=== PATIENT | female | born 1975 | race Caucasian/White ===

== ENCOUNTER 2023-09-14 17:08 | Emergency (ER) | payer MEDICARE, MEDICAID, SELFPAY ==
[2023-09-14 17:13] VITALS: BP 138/117; PULSE 68; RESP 30; TEMP 36.6; O2SAT 100; BMI 22.8
[2023-09-14] MEDS: Aspirin 81 MG TAB.CHEW 324 MG PO (17:55)
--- NOTE | 2023-09-14 18:01 | RAD_ITS ---
INDICATION: shortness of breath EXAMINATION/TECHNIQUE: X-RAY - XR Chest 2 Views COMPARISON: FINDINGS: LINES/DEVICES: Sternotomy wires are present.. LUNGS: Bibasilar infiltrates/atelectasis with mild effusions, left more than right. No pneumothorax. MEDIASTINUM AND CARDIOVASCULAR STRUCTURES: Cardiac silhouette not enlarged. Central airways and mediastinal contour are unremarkable. BONES AND SOFT TISSUES: Unremarkable. RAD/Chest PA and Lateral IMPRESSION: Bibasilar infiltrates/atelectasis with mild effusions, left more than right. Electronically Signed: Alonso Owens DO at 19:13 EST Reading Location ID and State: [facility] / [place] Tel [phone], Service support ,
--- NOTE | 2023-09-14 18:04 | EX.ED.DYSGE1 ---
HPI <DELPHINE Cortez - Last Filed: 09/14/23 20:22> History of Present Illness Chief Complaint: Shortness of Breath Narrative Narrative: Patient is a chronic ill-appearing 47-year-old female who lives at [facility] for 1 week who presents to the emergency department for shortness of breath. Patient has a history of type 1 diabetes, chronic kidney disease and receives hemodialysis Thursday. Patient was at dialysis today when she had to go to the bathroom and did not restart, patient stopped 35 minutes left in the session. Patient is been more short of breath over the last 48 hours and is here for evaluation. She denies any fever chills nausea or vomiting. PFS <DELPHINE Cortez - Last Filed: 09/14/23 20:22> [facility] Medical History (Updated 09/14/23 @ 20:22 by DELPHINE Cortez) Anemia in chronic kidney disease (CKD) Anxiety Congestive heart failure Constipation Gastroparesis Hyperlipidemia Hypothyroidism Insomnia Pleural effusion Stage 5 chronic kidney disease Tobacco use Type 1 diabetes mellitus Home Medications acetaminophen 325 mg capsule 325 mg PO Q4H PRN fever or pain 09/14/23 [History Last Taken 09/10/23] acetaminophen 650 mg rectal suppository 650 mg HI Q4H PRN fever or pain 09/14/23 [History Last Taken Unknown] albuterol sulfate 2.5 mg/3 mL (0.083 %) solution for nebulization 2.5 mg inhalation Q4H PRN shortness of breath or wheezing 09/14/23 [History Last Taken 09/14/23] aluminum hydrox-magnesium carb 254 mg-237.5 mg/5 mL oral suspension 30 ml PO Q4H PRN GI DISTRESS 09/14/23 [History Last Taken 09/10/23] aspirin 81 mg tablet,delayed release 81 mg PO DAILY 09/14/23 [History Last Taken 09/14/23] atorvastatin 20 mg tablet 20 mg PO QHS 09/14/23 [History Last Taken 09/13/23] bisacodyl 10 mg rectal suppository 10 mg HI DAILY PRN constipation 09/14/23 [History Last Taken Unknown] buspirone 5 mg tablet 5 mg PO TID 09/14/23 [History Last Taken 09/14/23] calcium carbonate 500 mg calcium (1,250 mg) chewable tablet (Calcium 500) 1,000 mg PO Q12H PRN abdominal discomfort 09/14/23 [History Last Taken 09/11/23] carvedilol 25 mg tablet 25 mg PO BID 09/14/23 [History Last Taken 09/14/23] clonidine HCl 0.3 mg tablet 0.3 mg PO TID 09/14/23 [History Last Taken 09/14/23] dextrose 40 % oral gel (Gluco Burst) 1 ea PO PRN 09/14/23 [History Last Taken Unknown] diclofenac sodium 1 % topical gel (Aleve (diclofenac)) 1 ea topical Q6H PRN KNEE PAIN 09/14/23 [History Last Taken 09/11/23] doxazosin 4 mg tablet (Cardura) 4 mg PO QHS 09/14/23 [History Last Taken 09/09/23] ergocalciferol (vitamin D2) 1,250 mcg (50,000 unit) capsule (Vitamin D2) 1,250 mcg PO QWEEK 09/14/23 [History Last Taken 09/14/23] famotidine 10 mg tablet (Acid Controller) 10 mg PO .COMPLEX 09/14/23 [History Last Taken 09/13/23] fluoxetine 10 mg capsule 10 mg PO DAILY 09/14/23 [History Last Taken 09/14/23] glucagon HCl 1 mg solution for injection (Glucagon (HCl) Emergency Kit) 1 mg IM Q20M PRN hypoglycemia 09/14/23 [History Last Taken Unknown] guaifenesin 100 mg/5 mL oral liquid (Adult Tussin Chest Congestion) 200 mg PO Q4H PRN congestion 09/14/23 [History Last Taken Unknown] hydralazine 100 mg tablet 100 mg PO TID 09/14/23 [History Last Taken 09/14/23] hydroxyzine HCl 50 mg tablet 50 mg PO Q6H 09/14/23 [History Last Taken 09/14/23] insulin glargine 100 unit/mL (3 mL) subcutaneous pen (Lantus Solostar U-100 Insulin) 8 unit subcut DAILY 09/14/23 [History Last Taken 09/14/23] insulin lispro 100 unit/mL subcutaneous pen (Humalog KwikPen (U-100) Insulin) 7 unit subcut TID 09/14/23 [History Last Taken 09/14/23] insulin lispro 100 unit/mL subcutaneous solution (Humalog U-100 Insulin) 10 unit subcut PRN 09/14/23 [History Last Taken Unknown] ipratropium 0.5 mg-albuterol 3 mg (2.5 mg base)/3 mL nebulization soln 3 ml continuous nebulization Q8H 09/14/23 [History Last Taken 09/14/23] levothyroxine 150 mcg tablet (Euthyrox) 150 mcg PO DAILY 09/14/23 [History Last Taken 09/14/23] lidocaine 3.75 % topical cream 1 applic topical QHS 09/14/23 [History Last Taken 09/13/23] losartan 100 mg tablet (Cozaar) 100 mg PO DAILY 09/14/23 [History Last Taken 09/14/23] magnesium hydroxide 400 mg/5 mL oral suspension (Milk of Magnesia) 30 ml PO DAILY PRN constipation 09/14/23 [History Last Taken 09/10/23] melatonin 3 mg capsule 3 mg PO QHS 09/14/23 [History Last Taken 09/13/23] metoclopramide HCl 5 mg tablet (Reglan) 5 mg PO DAILY 09/14/23 [History Last Taken 09/14/23] nifedipine 60 mg tablet,extended release 24 hr 60 mg PO DAILY 09/14/23 [History Last Taken 09/14/23] polyethylene glycol 3350 17 gram/dose oral powder (ClearLax) 17 g PO DAILY 09/14/23 [History Last Taken 09/14/23] pregabalin 50 mg capsule (Lyrica) 50 mg PO BID 09/14/23 [History Last Taken 09/14/23] sennosides 8.6 mg-docusate sodium 50 mg tablet (2-in-1 Laxative) 1 tab-cap PO QHS 09/14/23 [History Last Taken 09/14/23] sodium phosphates 19 gram-7 gram/118 mL enema (Enema) 118 ml HI DAILY PRN constipation 09/14/23 [History Last Taken Unknown] torsemide 10 mg tablet 5 mg PO DAILY 09/14/23 [History Last Taken Unknown] tramadol 50 mg tablet 50 mg PO BID 09/14/23 [History Last Taken 09/14/23] vitamin B complex-vitamin C-folic acid 0.8 mg tablet (Dialyvite 800) 1 tab PO DAILY 09/14/23 [History Last Taken 09/14/23] Allergy/AdvReac Type Severity Reaction Status Date / Time Sulfa (Sulfonamide Allergy PT UNSURE Verified 09/14/23 17:37 Antibiotics) OF REACTION Social History Smoking Status: Former smoker ROS <DELPHINE Cortez - Last Filed: 09/14/23 20:22> ROS ED ROS Narrative Constitutional: Negative for fever, chills, weight loss, weakness Eyes: Negative for vision loss, vision change, double vision ENT: Negative for any sore throat, ear pain, congestion Cardiovascular: Negative for any palpitations. Positive chest pain, chest tightness Respiratory: Negative for any cough, sputum production, hemoptysis, dyspnea on exertion, orthopnea. Positive for dyspnea Gastrointestinal: Negative for any abdominal pain, nausea, vomiting, diarrhea, constipation, blood in stool, blood in vomit : Negative for any urinary frequency, dysuria, retention, blood in urine Muscle skeletal: Negative for any myalgias, arthralgias, neck pain, back pain Neurological: Negative for any headache, syncope, paresthesias, dizziness Skin: Negative for any rashes, lumps, itching, abrasions, lacerations Psychiatric: Negative for any depression, anxiety, stress, suicidal ideation, homicidal ideation Hematologic: Negative for any easy bruising, excessive bruising, easy bleeding Allergies: Negative for any eczema, hives, rash EXAM <DELPHINE Cortez - Last Filed: 09/14/23 20:22> Physical Exam Narrative Exam Narrative: Vital signs reviewed Patient is ill-appearing. Patient is 97% on her 1.5 L which is chronic.. HEET: Head normocephalic atraumatic, TMs clear bilaterally. Posterior pharynx is clear, dry mucous membranes. Nares clear bilaterally. Neck: Supple with no lymphadenopathy or tenderness. No signs of meningismus. Cardiac: Regular rate and rhythm no murmurs gallops or rubs, equal peripheral pulses bilaterally. Respiratory: Lungs clear to auscultation bilaterally. Patient slight tachypneic no chest tenderness. Abdomen: Soft, nontender, nondistended. No abdominal bruit or pulsatile masses. No hepatosplenomegaly Extremities: +3 pitting edema bilateral no evidence of redness. No signs of gross trauma or deformity. Active full range of motion of all extremities. Neuro: Cranial nerves II through XII intact, no focal neurological deficits. Skin: Clean dry and intact with no rash, purpura, petechiae, vesicles or pustules. Backs/flank: No CVA tenderness, no midline spinal tenderness, no deformity. Psych: Normal mood and affect. No SI, HI or acute psychosis. Const Vital Signs: 09/14/23 17:13 09/14/23 17:47 09/14/23 17:48 Temperature 97.8 F Temperature Source Oral Pulse Rate 68 Respiratory Rate 30 H Respiratory Effort Short of Breath Respiratory Depth Normal Respiratory Pattern Normal Blood Pressure 138/117 H Blood Pressure Mean 124 Pulse Ox 100 Oxygen Delivery Method Nasal Cannula Room Air Room Air Oxygen Flow Rate (L/min) 4 09/14/23 18:08 09/14/23 19:00 09/14/23 20:00 Temperature Temperature Source Pulse Rate 66 69 67 Respiratory Rate 12 17 22 H Respiratory Effort Respiratory Depth Respiratory Pattern Blood Pressure 130/64 H 124/57 H 160/40 H Blood Pressure Mean 86 79 80 Pulse Ox 99 99 97 Oxygen Delivery Method Room Air Room Air Room Air Oxygen Flow Rate (L/min) 09/14/23 20:48 09/14/23 22:44 Temperature 98.1 F Temperature Source Temporal Pulse Rate 69 94 Respiratory Rate 18 12 Respiratory Effort Respiratory Depth Respiratory Pattern Blood Pressure 159/61 H 147/92 H Blood Pressure Mean 93 110 Pulse Ox 96 97 Oxygen Delivery Method Room Air Oxygen Flow Rate (L/min) Positive cachectic General Appearance ED: cachectic Nutritional Appearance: cachectic <Dr. Abdelrahman Clarke, DO - Last Filed: 09/14/23 23:00> Physical Exam Const Vital Signs: 09/14/23 17:13 09/14/23 17:47 09/14/23 17:48 Temperature 97.8 F Temperature Source Oral Pulse Rate 68 Respiratory Rate 30 H Respiratory Effort Short of Breath Respiratory Depth Normal Respiratory Pattern Normal Blood Pressure 138/117 H Blood Pressure Mean 124 Pulse Ox 100 Oxygen Delivery Method Nasal Cannula Room Air Room Air Oxygen Flow Rate (L/min) 4 09/14/23 18:08 09/14/23 19:00 09/14/23 20:00 Temperature Temperature Source Pulse Rate 66 69 67 Respiratory Rate 12 17 22 H Respiratory Effort Respiratory Depth Respiratory Pattern Blood Pressure 130/64 H 124/57 H 160/40 H Blood Pressure Mean 86 79 80 Pulse Ox 99 99 97 Oxygen Delivery Method Room Air Room Air Room Air Oxygen Flow Rate (L/min) 09/14/23 20:48 09/14/23 22:44 Temperature 98.1 F Temperature Source Temporal Pulse Rate 69 94 Respiratory Rate 18 12 Respiratory Effort Respiratory Depth Respiratory Pattern Blood Pressure 159/61 H 147/92 H Blood Pressure Mean 93 110 Pulse Ox 96 97 Oxygen Delivery Method Room Air Oxygen Flow Rate (L/min) MDM <DELPHINE Cortez - Last Filed: 09/14/23 20:22> [facility] Lab Data Labs: Laboratory Results - last 24 hr 09/14/23 09/14/23 09/14/23 17:25 17:59 18:31 WBC 5.5 RBC 2.95 L Hgb 8.8 L Hct 26.9 L MCV 91.2 MCH 29.8 MCHC 32.7 RDW Std Deviation 53.8 H RDW Coeff of Keysha 16.3 H Plt Count 257 MPV 12.0 Immature Gran % (Auto) 0.400 Neut % (Auto) 71.1 H Lymph % (Auto) 13.7 L [place] % (Auto) 8.6 Eos % (Auto) 5.1 H Baso % (Auto) 1.1 H Absolute Neuts (auto) 3.9 Absolute Lymphs (auto) 0.75 L Nucleated RBC % 0 PT Cancelled 13.8 INR Cancelled 1.1 Sodium 132 L Potassium 5.7 H Chloride 92 L Carbon Dioxide 30.0 Anion Gap 10 BUN 59 H Creatinine 3.84 H Estim Creat Clear Calc 15.95 Est GFR (MDRD) Af Amer 16 L Est GFR (MDRD) Non-Af 13 L BUN/Creatinine Ratio 15.4 Glucose 209 H Calcium 9.3 Phosphorus 4.3 Troponin I High Sens 16 Acetone Level NEGATIVE 09/14/23 19:36 WBC RBC Hgb Hct MCV MCH MCHC RDW Std Deviation RDW Coeff of Keysha Plt Count MPV Immature Gran % (Auto) Neut % (Auto) Lymph % (Auto) [place] % (Auto) Eos % (Auto) Baso % (Auto) Absolute Neuts (auto) Absolute Lymphs (auto) Nucleated RBC % PT INR Sodium Potassium Chloride Carbon Dioxide Anion Gap BUN Creatinine Estim Creat Clear Calc Est GFR (MDRD) Af Amer Est GFR (MDRD) Non-Af BUN/Creatinine Ratio Glucose Calcium Phosphorus Troponin I High Sens 14 Acetone Level ABG Data ABG results: ABG 09/14/23 18:06 Specimen Type JACKSON Sample Site Not entered VBG pH 7.45 H VBG pO2 60 H VBG HCO3 31 H VBG Total CO2 32 VBG O2 Sat (Calc) 91 H VBG Base Excess 7 H POC Mix VBG pCO2 Pt Tmp 44.5 O2 Delivery Device Not entered Radiography Diagnostic Testing: Clinical Impression(s) from Imaging Studies Chest X-Ray 09/14/23 18:01 IMPRESSION: Bibasilar infiltrates/atelectasis with mild effusions, left more than right. Electronically Signed: Alonso Owens DO at 19:13 EST , Chest CTA 09/14/23 18:49 IMPRESSION: No demonstrated pulmonary embolism or arterial dissection. Adenopathy of the mediastinum. Bilateral pleural effusions with basilar consolidations/atelectasis, right slightly more than left . Bilateral axillary adenopathy. Electronically Signed: Alonso Owens DO at 20:05 EST , EKG EKG shows normal sinus rhythm, rate of 65 bpm: Attestation: I personally reviewed and interpreted this EKG as follows: Comments: Normal sinus rhythm, rate 65 bpm, HI interval 148 ms, QRS duration 90 ms Treatment and Re-Evaluation :: Patient appears to be chronically ill, patient's vital signs are stable, patient is 97% on 1.5 L which is baseline. Present to the emergency department with chest pain, shortness of breath, headache that is been ongoing for the last 48 hours. Differential diagnose includes pulmonary edema, PE, DKA, community-acquired pneumonia. Patient received 2 view chest x-ray. All radiologic examinations were read, reviewed by the emergency department attending. From these reads, a plan of care will be put in place. Patient does take heparin, a PE is less likely. Patient received basic laboratory values concerning for any elevated white blood count, anemia, electrolyte abnormality. EKG was unremarkable. Patient's CBC shows a hemoglobin of 8.8, this is baseline for a hemodialysis patient. Patient's chemistries showed a potassium of 5.7, this is baseline, earlier today prior to dialysis was 6.3. Patient's creatinine 3.84, glucose was 209, patient's acetone is negative, no evidence of any acute DKA. Patient's initial troponin was 16, repeat was 14, this is negative. Patient chest x-ray interpreted by the ER physician does show some atelectasis with mild effusions left more than the right. Secondary the patient continued complaint of pain with breathing, dyspnea, I did order a CTA of the chest looking for any pulmonary embolus. CTA shows no demonstrated pulmonary embolism or arterial dissection. Bilateral pleural effusions with bibasilar consolidations or atelectasis right slightly more than left. Second to the patient having no fever, chills, no infectious symptoms, no leukocytosis, I believe this is atelectasis. At this time, there is no evidence of ACS or RI. Patient will be discharged home back to the skilled nursing. It will be vital that she does get dialysis tomorrow. She has no hypoxia, she is on 1.5 L daily. All questions answered, stable for discharge. <Dr. Abdelrahman Clarke, DO - Last Filed: 09/14/23 23:00> [facility] History & Record Review Discussion w/independent historian: Patient Lab Data Attestation: I reviewed the patient's lab results. Labs: Laboratory Results - last 24 hr 09/14/23 09/14/23 09/14/23 17:25 17:59 18:31 WBC 5.5 RBC 2.95 L Hgb 8.8 L Hct 26.9 L MCV 91.2 MCH 29.8 MCHC 32.7 RDW Std Deviation 53.8 H RDW Coeff of Keysha 16.3 H Plt Count 257 MPV 12.0 Immature Gran % (Auto) 0.400 Neut % (Auto) 71.1 H Lymph % (Auto) 13.7 L [place] % (Auto) 8.6 Eos % (Auto) 5.1 H Baso % (Auto) 1.1 H Absolute Neuts (auto) 3.9 Absolute Lymphs (auto) 0.75 L Nucleated RBC % 0 PT Cancelled 13.8 INR Cancelled 1.1 Sodium 132 L Potassium 5.7 H Chloride 92 L Carbon Dioxide 30.0 Anion Gap 10 BUN 59 H Creatinine 3.84 H Estim Creat Clear Calc 15.95 Est GFR (MDRD) Af Amer 16 L Est GFR (MDRD) Non-Af 13 L BUN/Creatinine Ratio 15.4 Glucose 209 H Calcium 9.3 Phosphorus 4.3 Troponin I High Sens 16 Acetone Level NEGATIVE 09/14/23 19:36 WBC RBC Hgb Hct MCV MCH MCHC RDW Std Deviation RDW Coeff of Keysha Plt Count MPV Immature Gran % (Auto) Neut % (Auto) Lymph % (Auto) [place] % (Auto) Eos % (Auto) Baso % (Auto) Absolute Neuts (auto) Absolute Lymphs (auto) Nucleated RBC % PT INR Sodium Potassium Chloride Carbon Dioxide Anion Gap BUN Creatinine Estim Creat Clear Calc Est GFR (MDRD) Af Amer Est GFR (MDRD) Non-Af BUN/Creatinine Ratio Glucose Calcium Phosphorus Troponin I High Sens 14 Acetone Level ABG Data ABG results: ABG 09/14/23 18:06 Specimen Type JACKSON Sample Site Not entered VBG pH 7.45 H VBG pO2 60 H VBG HCO3 31 H VBG Total CO2 32 VBG O2 Sat (Calc) 91 H VBG Base Excess 7 H POC Mix VBG pCO2 Pt Tmp 44.5 O2 Delivery Device Not entered Radiography Diagnostic Testing: Clinical Impression(s) from Imaging Studies Chest X-Ray 09/14/23 18:01 IMPRESSION: Bibasilar infiltrates/atelectasis with mild effusions, left more than right. Electronically Signed: Alonso Owens DO at 19:13 EST , Chest CTA 09/14/23 18:49 IMPRESSION: No demonstrated pulmonary embolism or arterial dissection. Adenopathy of the mediastinum. Bilateral pleural effusions with basilar consolidations/atelectasis, right slightly more than left . Bilateral axillary adenopathy. Electronically Signed: Alonso Owens DO at 20:05 EST , Treatment and Re-Evaluation :: Patient appears to be chronically ill, patient's vital signs are stable, patient is 97% on 1.5 L which is baseline. Present to the emergency department with chest pain, shortness of breath, headache that is been ongoing for the last 48 hours. Differential diagnose includes pulmonary edema, PE, DKA, community-acquired pneumonia. Patient received 2 view chest x-ray. All radiologic examinations were read, reviewed by the emergency department attending. From these reads, a plan of care will be put in place. Patient does take heparin, a PE is less likely. Patient received basic laboratory values concerning for any elevated white blood count, anemia, electrolyte abnormality. EKG was unremarkable. Patient's CBC shows a hemoglobin of 8.8, this is baseline for a hemodialysis patient. Patient's chemistries showed a potassium of 5.7, this is baseline, earlier today prior to dialysis was 6.3. Patient's creatinine 3.84, glucose was 209, patient's acetone is negative, no evidence of any acute DKA. Patient's initial troponin was 16, repeat was 14, this is negative. Patient chest x-ray interpreted by the ER physician does show some atelectasis with mild effusions left more than the right. Secondary the patient continued complaint of pain with breathing, dyspnea, I did order a CTA of the chest looking for any pulmonary embolus. CTA shows no demonstrated pulmonary embolism or arterial dissection. Bilateral pleural effusions with bibasilar consolidations or atelectasis right slightly more than left. Second to the patient having no fever, chills, no infectious symptoms, no leukocytosis, I believe this is atelectasis. At this time, there is no evidence of ACS or RI. Patient will be discharged home back to the skilled nursing. It will be vital that she does get dialysis tomorrow. She has no hypoxia, she is on 1.5 L daily. All questions answered, stable for discharge. I have personally performed a face to face assessment of the patient and have reviewed the ERMA Note. I performed a substantive portion of the visit including all aspects of the following. My matthews findings include: History is 47-year-old female on dialysis was recently admitted to [facility] and has been at [facility] for 1 week. She tells me that she was getting dialysis today when she needed to have a bowel movement. She went to have a bowel movement and suddenly got short of breath. This resulted in the last 30 minutes or so of dialysis not being completed. She tells me that she feels somewhat anxious and that she does not feel like she can catch her breath. She is originally from [facility] and was getting most of her care in [place] and therefore has not been to this hospital. Review of her skilled nursing paperwork shows that she has a history of pleural effusion end-stage renal disease lower extremity fractures upper cholesterolemia hypertension depression diabetes. She tells me she is on heparin as a blood thinner but I do not see it listed on her MAR so I wonder if if she is telling me that because they give her that at dialysis. Patient denies any fever. She denies any change in leg swelling. She wears home oxygen Exam is mild nonpitting edema of the lower extremities. Patient is tachypneic but she has good air exchange she is satting normally on her home oxygen settings. She is not tachycardic she is not hypotensive or significantly hypertensive. Medical Decison Making an extensive workup was undertaken and I find bilateral pleural effusions with some compressive findings. I do not feel that these are large enough that should make her feel tachypneic. She would like something for her anxiety. We needed to do a CTA with her recent hospitalizations and I do not see a pulmonary embolism. She is due for dialysis tomorrow and she was told that she definitely needs to get dialyzed because of the CT today. At this point I do not see an obvious cause for her reported tachypnea. Believe she can be discharged back to skilled nursing. Return if worsening Discharge Plan Triage Chief Complaint: Shortness of Breath ED Midlevel Provider: Sukhdev Mckenzie ED Provider: Abdelrahman Clarke Dx/Rx/DC Orders Clinical Impression: Acute dyspnea, Pleural effusion Instructions: ED Dyspnea, ED Pleural Effusion Prescriptions: No Action acetaminophen 650 mg suppository 650 mg HI Q4H PRN (Reason: fever or pain) acetaminophen 325 mg capsule 325 mg PO Q4H PRN (Reason: fever or pain) albuterol sulfate 2.5 mg /3 mL (0.083 %) solution for nebulization 2.5 mg inhalation Q4H PRN (Reason: shortness of breath or wheezing) aluminum hydrox-magnesium carb 254-237.5 mg/5 mL suspension 30 ml PO Q4H PRN (Reason: GI DISTRESS) aspirin 81 mg tablet,delayed release (DR/EC) 81 mg PO DAILY Patient Comments: TAKE 1 TABLET BY MOUTH EVERY DAY atorvastatin 20 mg tablet 20 mg PO QHS bisacodyl 10 mg suppository 10 mg HI DAILY PRN (Reason: constipation) buspirone 5 mg tablet 5 mg PO TID calcium carbonate [Calcium 500] 500 mg calcium (1,250 mg) tablet,chewable 1,000 mg PO Q12H PRN (Reason: abdominal discomfort) carvedilol 25 mg tablet 25 mg PO BID Rx Instructions: must administer with a meal/food clonidine HCl 0.3 mg tablet 0.3 mg PO TID diclofenac sodium [Aleve (diclofenac)] 1 % gel 1 ea topical Q6H PRN (Reason: KNEE PAIN) ergocalciferol (vitamin D2) [Vitamin D2] 1,250 mcg (50,000 unit) capsule 1,250 mcg PO QWEEK Rx Instructions: THURSDAY famotidine [Acid Controller] 10 mg tablet 10 mg PO .COMPLEX Rx Instructions: 10 mg orally QOD; Enema 19-7 gram/118 mL enema 118 ml HI DAILY PRN (Reason: constipation) fluoxetine 10 mg capsule 10 mg PO DAILY glucagon HCl [Glucagon (HCl) Emergency Kit] 1 mg recon soln 1 mg IM Q20M PRN (Reason: hypoglycemia) Rx Instructions: until target blood sugar attained dextrose [Gluco Burst] 40 % gel 1 ea PO PRN Rx Instructions: until symptoms of low blood sugar are controlled guaifenesin [Adult Tussin Chest Congestion] 100 mg/5 mL liquid 200 mg PO Q4H PRN (Reason: congestion) hydralazine 100 mg tablet 100 mg PO TID hydroxyzine HCl 50 mg tablet 50 mg PO Q6H insulin lispro [Humalog U-100 Insulin] 100 unit/mL solution 10 unit subcut PRN Rx Instructions: FOR BLOOD SUGAR > 400 HS insulin lispro [Humalog KwikPen Insulin] 100 unit/mL insulin pen 7 unit subcut TID Rx Instructions: CM AND PER SLIDING SCALE 201-275=1U 276-350=2U 351-425=3U >425=4U ipratropium-albuterol 0.5 mg-3 mg(2.5 mg base)/3 mL solution for nebulization 3 ml continuous nebulization Q8H insulin glargine [Lantus Solostar U-100 Insulin] 100 unit/mL (3 mL) insulin pen 8 unit subcut DAILY levothyroxine [Euthyrox] 150 mcg tablet 150 mcg PO DAILY lidocaine 3.75 % cream 1 applic topical QHS losartan [Cozaar] 100 mg tablet 100 mg PO DAILY melatonin 3 mg capsule 3 mg PO QHS magnesium hydroxide [Milk of Magnesia] 400 mg/5 mL suspension 30 ml PO DAILY PRN (Reason: constipation) nifedipine 60 mg tablet extended release 24hr 60 mg PO DAILY polyethylene glycol 3350 [ClearLax] 17 gram/dose powder 17 g PO DAILY pregabalin [Lyrica] 50 mg capsule 50 mg PO BID metoclopramide HCl [Reglan] 5 mg tablet 5 mg PO DAILY Rx Instructions: WITH MEALS Dialyvite 800 0.8 mg tablet 1 tab PO DAILY sennosides-docusate sodium [2-in-1 Laxative] 8.6-50 mg tablet 1 tab-cap PO QHS torsemide 10 mg tablet 5 mg PO DAILY tramadol 50 mg tablet 50 mg PO BID doxazosin [Cardura] 4 mg tablet 4 mg PO QHS Primary Care Provider: Renetta Schmitt Referrals: Renetta Schmitt MD [Primary Care Provider] - Activity Restrictions/Additional Instructions: Please follow-up outpatient. You need to have dialysis tomorrow because you received a CT scan of your chest that required contrast. You need to get dialysis Disposition Disposition: Home, Self Care
[2023-09-14 18:08] VITALS: BP 130/64; PULSE 66; RESP 12; O2SAT 99
[2023-09-14 18:10] LABS: Blood Gas Specimen Type VEN; O2 Delivery Device Not entered; SITE Not entered; VBG BASE EXCESS 7 mmol/L (-1.0-3.5); VBG Bicarbonate 31 mmol/L (22-26); VBG PO2 60 mmHg (25-40); VBG SO2 91 % (50-70); VBG TCO2 32 mmol/L (23-33); VBG pCO2 44.5 mmHg (41-51); VBG pH 7.45 (7.32-7.42)
[2023-09-14 18:11] LABS: Absolute Lymphocyte Count 0.75 X10^3/uL (0.83-4.51); Absolute Neutrophil Count 3.9 X10^3/uL (2.0-7.7); Basophil# 0.06 X10^3/uL; Basophil% 1.1 % (0-1); Eosinophil# 0.28 X10^3/uL; Eosinophils% 5.1 % (0-5); Hematocrit 26.9 % (37-47); Hemoglobin 8.8 g/dL (12.0-15.0); Lymphocyte # 0.75 X10^3/ul (0.83-4.51); Lymphocyte % 13.7 % (19-41); Mean Corp Hgb Conc 32.7 g/dL (32-36); Mean Corpuscular Hgb 29.8 pg (27.0-32.0); Mean Corpuscular Volume 91.2 fL (81-99); Monocyte# 0.47 X10^3/uL; Monocyte% 8.6 % (0-10); NRBC Flagged by Analyzer 0 % (0-5); Neutrophil % 71.1 % (47-70); Platelet Count 257 K/mm3 (150-450); RBC Distribution Width CV 16.3 % (11.6-14.6); RBC Distribution Width SD 53.8 fl (35.1-43.9); Red Blood Count 2.95 M/mm3 (4.2-5.4); White Blood Count 5.5 K/mm3 (4.4-11.0)
[2023-09-14 18:17] LABS: Phosphorus 4.3 mg/dL (2.5-4.9)
[2023-09-14 18:26] LABS: Anion Gap 10 (5-15); BUN 59 mg/dL (7-18); BUN/Creat Ratio 15.4 RATIO (10-20); Calcium,Total 9.3 mg/dL (8.5-10.1); Chloride 92 mmol/L (98-107); Creatinine, Serum 3.84 mg/dL (0.55-1.02); EST Glomerular Filtration Rate 13 mL/min (>60); Est Glom Filt Rate - Afr Amer 16 mL/min (>60); Estimated Creatinine Clearance 15.95 ml/min; Glucose 209 mg/dL (74-106); Potassium 5.7 mmol/L (3.5-5.1); Sodium Level 132 mmol/L (136-145); Troponin-I HS (w/2H Reflex) 16 pg/mL (3.0-54.0)
[2023-09-14 18:49] LABS: International Normalized Ratio 1.1; Prothrombin Time (Protime)PT. 13.8 SECONDS (11.7-14.9)
--- NOTE | 2023-09-14 18:49 | CT_ITS ---
STUDY: CTA CHEST REASON FOR EXAM: Female, 47 years old. RLQ abdominal pain RADIATION DOSAGE (If Supplied By Facility): CTDIvol = ( 6.43 ) mGy, DLP = ( 174.38 ) mGycm TECHNIQUE: The examination was performed with the intravenous administration of IV 100mL Isovue-[id number]. Post-processing of the angiographic images was performed, with multiplanar reformation and 3D reconstruction. Individualized dose optimization techniques were used for this CT. COMPARISON: FINDINGS: Normal enhancement of the main pulmonary artery and right and left pulmonary arteries. Normal enhancement of the bilateral peripheral pulmonary arteries. There is no demonstrated pulmonary embolism. Normal thoracic aorta and visualized great vessels. There is no demonstrated aortic dissection. Normal heart and pericardium. Adenopathy of the mediastinum. Normal hilar regions. Normal visualized trachea and bronchi. Bilateral pleural effusions with basilar consolidations/atelectasis, right slightly more than left . Normal chest wall structures. Bilateral axillary adenopathy. Normal osseous structures. Normal visualized upper abdomen. CT/CTA Chest W/WO Contrast IMPRESSION: No demonstrated pulmonary embolism or arterial dissection. Adenopathy of the mediastinum. Bilateral pleural effusions with basilar consolidations/atelectasis, right slightly more than left . Bilateral axillary adenopathy. Electronically Signed: Alonso Owens DO at 20:05 EST Reading Location ID and State: [facility] / [place] Tel [phone], Service support ,
[2023-09-14 19:00] VITALS: BP 124/57; PULSE 69; RESP 17; O2SAT 99
[2023-09-14 19:53] LABS: Reflex Troponin-HS? (from REC) Y
[2023-09-14 20:00] VITALS: BP 160/40; PULSE 67; RESP 22; O2SAT 97
[2023-09-14 20:17] LABS: Troponin-I HS 14 pg/mL (3.0-54.0)
--- NOTE | 2023-09-14 20:37 | ED.RN ---
pt report called to [facility] and made them aware she needs to have dialysis tomorrow d/t contrast in her cta
[2023-09-14] MEDS: Ondansetron 4 MG/2 ML Vial IV (20:44)
[2023-09-14] MEDS: Morphine 4 MG/ML Syringe IV (20:44)
[2023-09-14 20:48] VITALS: BP 159/61; PULSE 69; RESP 18; O2SAT 96
[2023-09-14 22:44] VITALS: BP 147/92; PULSE 94; RESP 12; TEMP 36.7; O2SAT 97
[2023-09-15 01:00] VITALS: BP 154/89; PULSE 85; RESP 18; TEMP 36.9; O2SAT 98
[2023-09-15 04:31] VITALS: BP 138/79; PULSE 81; RESP 16; O2SAT 99
== END 2023-09-15 04:32 | disposition skilled nursing facility (03) ==
PROVIDERS: Nurse Practitioner; Emergency Provider Emergency Medicine; PCP Internal Medicine; Visit Provider Emergency Medicine
DX: R06.00 Dyspnea, unspecified (principal); Z99.2 Dependence on renal dialysis; E10.43 Type 1 diabetes mellitus with diabetic autonomic (poly)neuropathy; E10.22 Type 1 diabetes mellitus with diabetic chronic kidney disease; N18.5 Chronic kidney disease, stage 5; Z87.891 Personal history of nicotine dependence; J90 Pleural effusion, not elsewhere classified; E78.5 Hyperlipidemia, unspecified; E03.9 Hypothyroidism, unspecified; K31.84 Gastroparesis
CPT/HCPCS: 71046; 71275; 80048; 82009; 82803; 84100; 84484; 85025; 85610; 93005; 96374; 96375; 99284; Q9967; A4216; J2405

== ENCOUNTER → 2023-09-14 | Outpatient (REF) | payer MEDICARE, MEDICAID, SELFPAY ==
[2023-09-14 08:57] LABS: Hematocrit 25.5 % (37-47); Mean Corp Hgb Conc 31.4 g/dL (32-36); Mean Corpuscular Hgb 29.1 pg (27.0-32.0); Mean Corpuscular Volume 92.7 fL (81-99); Mean Platelet Vol. 10.5 fl (6.2-12.0); Platelet Count 236 K/mm3 (150-450); RBC Distribution Width CV 16.1 % (11.6-14.6); RBC Distribution Width SD 54.8 fl (35.1-43.9); Red Blood Count 2.75 M/mm3 (4.2-5.4); White Blood Count 5.9 K/mm3 (4.4-11.0)
[2023-09-14 09:34] LABS: Anion Gap 12 (5-15); BUN 85 mg/dL (7-18); BUN/Creat Ratio 15.9 RATIO (10-20); Calcium,Total 9.1 mg/dL (8.5-10.1); Chloride 90 mmol/L (98-107); Creatinine, Serum 5.33 mg/dL (0.55-1.02); EST Glomerular Filtration Rate 9 mL/min (>60); Est Glom Filt Rate - Afr Amer 11 mL/min (>60); Glucose 510 mg/dL (74-106); Magnesium 3.2 mg/dL (1.6-2.6); Potassium 6.3 mmol/L (3.5-5.1); Sodium Level 126 mmol/L (136-145)
== END ==
LOC: OLS.SW 05:00
PROVIDERS: PCP Internal Medicine; Visit Provider Internal Medicine
DX: E10.22 Type 1 diabetes mellitus with diabetic chronic kidney disease (principal); N18.6 End stage renal disease; D63.1 Anemia in chronic kidney disease
CPT/HCPCS: 36415; 80048; 83735; 85027

== ENCOUNTER 2023-09-22 23:13 | Emergency (ER) | payer MEDICARE, MEDICAID, SELFPAY ==
[2023-09-22 23:15] VITALS: BP 216/75; PULSE 74; RESP 15; TEMP 36.6; O2SAT 100; BMI 21.2
--- NOTE | 2023-09-22 23:48 | CT_ITS ---
STUDY: CT ABDOMEN AND PELVIS WITHOUT CONTRAST REASON FOR EXAM: Female, 47 years old. abd pain /ascites RADIATION DOSAGE (If Supplied By Facility): CTDIvol = ( 6.08 ) mGy, DLP = ( 310.12 ) mGycm TECHNIQUE: Transaxial images were obtained from the dome of the diaphragm to the symphysis pubis without oral contrast, and without intravenous contrast. Sagittal and coronal images were reconstructed. Individualized dose optimization techniques were used for this CT. COMPARISON: None. FINDINGS: Bilateral lower lobe consolidation most compatible with residual infiltrate. Superimposed linear atelectasis within the right middle lobe, lingular lobe and bilateral lower lobes. Moderate cardiomegaly with midline sternotomy wires. Mild bilateral pleural effusions. Normal liver. Over distended gallbladder with sludge versus tiny stones versus vicarious excretion of contrast from previous exam. There is questionable mild thickening of the wall of the gallbladder versus pericholecystic fluid. Normal spleen. Normal pancreas. Normal bilateral adrenal glands. There is mild to moderate cortical atrophy of the right kidney, consistent with chronic medical renal disease, the right kidney measuring 8.1 cm. There is mild moderate cortical atrophy of the left kidney, consistent with chronic medical renal disease, the left kidney measuring 8.2 cm. The stomach is decompressed and difficult to assess, otherwise unremarkable. Normal small intestine. Increased fecal debris within the colon mild diffuse distention consistent with constipation. There are surgical clips in the region of the appendix consistent with a prior appendectomy. There is diffuse atherosclerotic calcification of the abdominal aorta, without a demonstrated aneurysm. Normal inferior vena cava. Normal retroperitoneum. Normal urinary bladder. Anteverted uterus with mild bulbous appearance, cannot exclude uterine fibroids. Mild free fluid within the posterior cul-de-sac. Diffuse fluid infiltration of subcutaneous fat suggestive of anasarca. Minor spondylosis otherwise unremarkable spine with no acute fracture or subluxation. Diffuse osteopenia with sequela of old fracture involving the right inferior pubic ramus. CT/Abdomen/Pelvis without Cont IMPRESSION: Over distended gallbladder with question sludge versus tiny stone and possible minimal thickening of gallbladder wall. If right upper quadrant symptoms are present, recommend dedicated right upper quadrant ultrasound. Constipation. Status post appendectomy. No bowel obstruction. Electronically Signed: Saumya Julien MD at 1:32 EST ,
--- NOTE | 2023-09-23 | RAD_ITS ---
STUDY: X-RAY CHEST REASON FOR EXAM: Female, 47 years old. chest pain TECHNIQUE: Single AP portable view of the chest. COMPARISON: 09/14/2023. FINDINGS: There is mild right basilar atelectasis, improved in the interval. There is consolidation in the left infrahilar region suggestive of residual infiltrates, with no significant change. The lungs are underexpanded with mild vascular crowding. There is no demonstrated pleural abnormality. There is mild cardiac enlargement. Midline sternotomy wires noted. Normal mediastinum and yusra. Normal visualized pulmonary arteries. Normal visualized aortic arch and descending thoracic aorta. Normal visualized thoracic spine. Normal visualized ribs, clavicles, and shoulders. There is no demonstrated abnormality of the visualized soft tissue structures of the upper abdomen. RAD/Chest 1 View (Portable) IMPRESSION: Right basilar atelectasis, slightly improved. Left lower lobe pneumonia, stable. Electronically Signed: Saumya Julien MD at 0:33 EST ,
[2023-09-23 00:09] VITALS: BP 214/78; PULSE 65; RESP 15; O2SAT 100
[2023-09-23] MEDS: Morphine 4 MG/ML Syringe IV ×2 (00:09→05:07)
[2023-09-23] MEDS: Ondansetron 4 MG/2 ML Vial IV (00:09)
[2023-09-23 00:26] LABS: Absolute Lymphocyte Count 1.45 X10^3/uL (0.83-4.51); Absolute Neutrophil Count 2.7 X10^3/uL (2.0-7.7); Basophil# 0.04 X10^3/uL; Basophil% 0.8 % (0-1); Eosinophil# 0.23 X10^3/uL; Eosinophils% 4.3 % (0-5); Hematocrit 31.6 % (37-47); Hemoglobin 9.8 g/dL (12.0-15.0); Lymphocyte # 1.45 X10^3/ul (0.83-4.51); Lymphocyte % 27.3 % (19-41); Mean Corpuscular Volume 96.6 fL (81-99); Mean Platelet Vol. 9.7 fl (6.2-12.0); Monocyte# 0.84 X10^3/uL; Monocyte% 15.8 % (0-10); NRBC Flagged by Analyzer 0 % (0-5); Neutrophil # 2.74 X10^3/uL (2.7-7.7); Neutrophil % 51.4 % (47-70); Platelet Count 290 K/mm3 (150-450); RBC Distribution Width CV 17.8 % (11.6-14.6); RBC Distribution Width SD 59.6 fl (35.1-43.9); Red Blood Count 3.27 M/mm3 (4.2-5.4); White Blood Count 5.3 K/mm3 (4.4-11.0)
[2023-09-23 00:52] LABS: AST(SGOT) 35 U/L (15-37); Alanine Aminotransfer ALT/SGPT 51 U/L (13-56); Alkaline Phosphatase 432 U/L (45-117); Anion Gap 6 (5-15); BUN 51 mg/dL (7-18); BUN/Creat Ratio 15.8 RATIO (10-20); Bilirubin, Direct 0.17 mg/dL (0.00-0.30); Calcium,Total 9.1 mg/dL (8.5-10.1); Chloride 93 mmol/L (98-107); Creatinine, Serum 3.22 mg/dL (0.55-1.02); EST Glomerular Filtration Rate 16 mL/min (>60); Est Glom Filt Rate - Afr Amer 20 mL/min (>60); Estimated Creatinine Clearance 19.02 ml/min; Globulin 4.6 g/dL (2.2-4.2); Glucose 189 mg/dL (74-106); Lipase 13 U/L (13-75); Magnesium 2.4 mg/dL (1.6-2.6); Phosphorus 3.7 mg/dL (2.5-4.9); Potassium 5.2 mmol/L (3.5-5.1); Protein, Total 7.6 g/dL (6.4-8.2); Sodium Level 131 mmol/L (136-145); Thyroid Stim Hormone (TSH) 5.16 uIU/mL (0.358-3.74); Troponin-I HS 17 pg/mL (3.0-54.0)
[2023-09-23 01:05] VITALS: BP 216/85; PULSE 67; RESP 12; O2SAT 99
[2023-09-23 01:36] VITALS: BP 212/85; PULSE 62; RESP 10; O2SAT 100
--- NOTE | 2023-09-23 01:42 | US_ITS ---
EXAM: US ABDOMEN LIMITED, RIGHT UPPER QUADRANT CLINICAL INDICATION: abd pain / abnormal ct abd pain / abnormal ct TECHNIQUE: Real-time ultrasound of the right upper quadrant with image documentation. COMPARISON: CT scan abdomen and pelvis 09/23/2023. FINDINGS: LIVER: The liver measures 20.5 cm. There is normal echotexture. No intrahepatic biliary ductal dilation. GALLBLADDER: The gallbladder wall measures 2.8 mm. There is sludge in gallbladder. There are no demonstrated gallstones. Sonographic Trevino''s sign is negative, according to angio technologist notes. Pericholecystic fluid is present. A small amount of ascites fluid can be seen in the right paracolic gutter region on the recent CT scan and the pericholecystic fluid may be due to ascites rather than gallbladder disease. COMMON BILE DUCT: Unremarkable as visualized. The proximal common bile duct is within normal limits for the patient''s age. PANCREAS: Unremarkable as visualized. No focal abnormality is demonstrated in the pancreas. No pancreatic ductal dilatation. RIGHT KIDNEY: The common bile duct measures 5.8 mm. Right kidney measures 9.2 x 3.9 x 3.6 cm. There is no hydronephrosis. No shadowing calculus. No focal lesion or perinephric collection is demonstrated. US/Gallbladder IMPRESSION: 1. Sludge in an otherwise normal-appearing gallbladder. No demonstrated gallstones. 2. Pericholecystic fluid is a nonspecific finding which may represent extension of ascites fluid into the pericholecystic region or, less likely, gallbladder disease. 3. No bile duct dilatation. 4. Hepatomegaly. Electronically Signed: Hernan Guan MD at 3:55 EST ,
[2023-09-23 03:51] VITALS: BP 194/92; PULSE 59; RESP 16; O2SAT 99
--- NOTE | 2023-09-23 04:32 | EX.ED.DYSGE1 ---
HPI History of Present Illness Chief Complaint: Chest Pain Informant: patient Narrative Narrative: Patient is a 47-year-old female with past medical history of type 1 diabetes chronic kidney disease on dialysis and hypertension as well as CAD status post bypass roughly 1 year ago. Patient was seen in the ER roughly 1 week ago secondary to same complaint of chest pain. At that time she underwent a cardiac workup that included a CTA of the chest. Patient had no signs of acute coronary syndrome and CT revealed no dissection or obvious pneumonia. Patient reports he has been having persistent pain that seems to worsen when she has dialysis since that evaluation and she is also noticed that her abdomen seems swollen . She states the pain seemed more severe this evening and therefore she was sent back in for reevaluation [facility] Medical History (Updated 09/24/23 @ 06:[address] Mayco Hernandez DO) Anemia in chronic kidney disease (CKD) Anxiety Congestive heart failure Constipation Gastroparesis Hyperlipidemia Hypothyroidism Insomnia Pleural effusion Stage 5 chronic kidney disease Tobacco use Type 1 diabetes mellitus Home Medications acetaminophen 325 mg capsule 325 mg PO Q4H PRN fever or pain 09/14/23 [History Last Taken 09/10/23] acetaminophen 650 mg rectal suppository 650 mg KS Q4H PRN fever or pain 09/14/23 [History Last Taken Unknown] albuterol sulfate 2.5 mg/3 mL (0.083 %) solution for nebulization 2.5 mg inhalation Q4H PRN shortness of breath or wheezing 09/14/23 [History Last Taken 09/14/23] aluminum hydrox-magnesium carb 254 mg-237.5 mg/5 mL oral suspension 30 ml PO Q4H PRN GI DISTRESS 09/14/23 [History Last Taken 09/10/23] aspirin 81 mg tablet,delayed release 81 mg PO DAILY 09/14/23 [History Last Taken 09/14/23] atorvastatin 20 mg tablet 20 mg PO QHS 09/14/23 [History Last Taken 09/13/23] bisacodyl 10 mg rectal suppository 10 mg KS DAILY PRN constipation 09/14/23 [History Last Taken Unknown] buspirone 5 mg tablet 5 mg PO TID 09/14/23 [History Last Taken 09/14/23] calcium carbonate 500 mg calcium (1,250 mg) chewable tablet (Calcium 500) 1,000 mg PO Q12H PRN abdominal discomfort 09/14/23 [History Last Taken 09/11/23] carvedilol 25 mg tablet 25 mg PO BID 09/14/23 [History Last Taken 09/14/23] clonidine HCl 0.3 mg tablet 0.3 mg PO TID 09/14/23 [History Last Taken 09/14/23] dextrose 40 % oral gel (Gluco Burst) 1 ea PO PRN 09/14/23 [History Last Taken Unknown] diclofenac sodium 1 % topical gel (Aleve (diclofenac)) 1 ea topical Q6H PRN KNEE PAIN 09/14/23 [History Last Taken 09/11/23] doxazosin 4 mg tablet (Cardura) 4 mg PO QHS 09/14/23 [History Last Taken 09/09/23] ergocalciferol (vitamin D2) 1,250 mcg (50,000 unit) capsule (Vitamin D2) 1,250 mcg PO QWEEK 09/14/23 [History Last Taken 09/14/23] famotidine 10 mg tablet (Acid Controller) 10 mg PO .COMPLEX 09/14/23 [History Last Taken 09/13/23] fluoxetine 10 mg capsule 10 mg PO DAILY 09/14/23 [History Last Taken 09/14/23] glucagon HCl 1 mg solution for injection (Glucagon (HCl) Emergency Kit) 1 mg IM Q20M PRN hypoglycemia 09/14/23 [History Last Taken Unknown] guaifenesin 100 mg/5 mL oral liquid (Adult Tussin Chest Congestion) 200 mg PO Q4H PRN congestion 09/14/23 [History Last Taken Unknown] hydralazine 100 mg tablet 100 mg PO TID 09/14/23 [History Last Taken 09/14/23] hydroxyzine HCl 50 mg tablet 50 mg PO Q6H 09/14/23 [History Last Taken 09/14/23] insulin glargine 100 unit/mL (3 mL) subcutaneous pen (Lantus Solostar U-100 Insulin) 15 unit subcut DAILY 09/14/23 [History Last Taken 09/14/23] insulin lispro 100 unit/mL subcutaneous pen (Humalog KwikPen (U-100) Insulin) 10 unit subcut TID 09/14/23 [History Last Taken 09/14/23] insulin lispro 100 unit/mL subcutaneous solution (Humalog U-100 Insulin) 10 unit subcut PRN 09/14/23 [History Last Taken Unknown] ipratropium 0.5 mg-albuterol 3 mg (2.5 mg base)/3 mL nebulization soln 3 ml continuous nebulization Q8H 09/14/23 [History Last Taken 09/14/23] levothyroxine 150 mcg tablet (Euthyrox) 150 mcg PO DAILY 09/14/23 [History Last Taken 09/14/23] lidocaine 3.75 % topical cream 1 applic topical QHS 09/14/23 [History Last Taken 09/13/23] losartan 100 mg tablet (Cozaar) 100 mg PO DAILY 09/14/23 [History Last Taken 09/14/23] magnesium hydroxide 400 mg/5 mL oral suspension (Milk of Magnesia) 30 ml PO DAILY PRN constipation 09/14/23 [History Last Taken 09/10/23] melatonin 3 mg capsule 3 mg PO QHS 09/14/23 [History Last Taken 09/13/23] metoclopramide HCl 5 mg tablet (Reglan) 5 mg PO DAILY 09/14/23 [History Last Taken 09/14/23] nifedipine 60 mg tablet,extended release 24 hr 60 mg PO DAILY 09/14/23 [History Last Taken 09/14/23] polyethylene glycol 3350 17 gram/dose oral powder (ClearLax) 17 g PO DAILY 09/14/23 [History Last Taken 09/14/23] pregabalin 50 mg capsule (Lyrica) 50 mg PO BID 09/14/23 [History Last Taken 09/14/23] sennosides 8.6 mg-docusate sodium 50 mg tablet (2-in-1 Laxative) 1 tab-cap PO QHS 09/14/23 [History Last Taken 09/14/23] sodium phosphates 19 gram-7 gram/118 mL enema (Enema) 118 ml KS DAILY PRN constipation 09/14/23 [History Last Taken Unknown] torsemide 10 mg tablet 5 mg PO DAILY 09/14/23 [History Last Taken Unknown] tramadol 50 mg tablet 50 mg PO BID 09/14/23 [History Last Taken 09/14/23] vitamin B complex-vitamin C-folic acid 0.8 mg tablet (Dialyvite 800) 1 tab PO DAILY 09/14/23 [History Last Taken 09/14/23] ceftriaxone 1 gram solution for injection 1 g IM QHS 09/23/23 [History Last Taken Unknown] doxycycline monohydrate 100 mg capsule 100 mg PO BID 09/23/23 [History Last Taken Unknown] Allergy/AdvReac Type Severity Reaction Status Date / Time Sulfa (Sulfonamide Allergy PT UNSURE Verified 09/22/23 23:23 Antibiotics) OF REACTION Social History Smoking Status: Former smoker ROS ROS ED Constitutional Constitutional ED: Denies chills or fever(s) ENT ENT ED: Denies sore throat Cardiovascular Cardiovascular: Reports chest pain; Denies palpitations or racing heartbeat Respiratory/Chest Respiratory/Chest: Denies cough or dyspnea Gastrointestinal Gastrointestinal: Reports abdominal pain; Denies diarrhea, nausea or vomiting Musculoskeletal Musculoskeletal: Denies myalgias Integumentary Denies rash Neurologic Neurologic: Denies headache(s) Hematologic/Lymphatic Hematologic/Lymphatic: Denies easy bleeding or easy bruising EXAM Physical Exam Const Vital Signs: 09/22/23 23:15 09/22/23 23:21 09/23/23 00:09 Temperature 97.9 F Temperature Source Temporal Pulse Rate 74 65 Respiratory Rate 15 15 Respiratory Effort Normal Non-Labored Blood Pressure 216/75 H 214/78 H Blood Pressure Mean 122 123 Pulse Ox 100 100 Oxygen Delivery Method Nasal Cannula Nasal Cannula Oxygen Flow Rate (L/min) 3 2 09/23/23 01:05 09/23/23 01:36 09/23/23 03:51 Temperature Temperature Source Pulse Rate 67 62 59 L Respiratory Rate 12 10 L 16 Respiratory Effort Blood Pressure 216/85 H 212/85 H 194/92 H Blood Pressure Mean 128 127 126 Pulse Ox 99 100 99 Oxygen Delivery Method Nasal Cannula Nasal Cannula Nasal Cannula Oxygen Flow Rate (L/min) 2 2 2 Positive well developed and unkempt General Appearance ED: unkempt, well developed and NAD HEENT HEENT Narrative: Mucous membranes are dry and tacky No tongue or lip swelling no oral lesions no airway edema or compromise No secondary changes to suggest infection in the posterior pharynx Eyes PERRL and EOMs intact bilaterally Eyes Narrative: There is faint scleral icterus noted bilaterally Neck supple Neck Narrative: No nuchal rigidity or meningeal signs noted Chest Wall Chest Narrative: Patient has reproducible anterior chest wall pain with palpation that she states is similar to the pain she has been experiencing without bony deformity or crepitance Resp normal respiratory effort Resp Narrative: Breath sounds are diminished throughout with faint crackles noted in the bilateral lower lobes however no nasal flaring retractions tachypnea or accessory muscle use Cardio regular rate and regular rhythm GI GI Narrative: Abdomen is soft with slight distention. There is generalized pain with palpation. There is faint fluid wave noted. No voluntary guarding or rigidity. No pulsatile mass. Auscultation: normoactive bowel sounds Palpation: soft Extremity Extremity Narrative: +2-3 pitting edema to the bilateral lower extremities is equal and symmetric Neuro oriented x3 and CN's II-XII intact bilaterally Sensorium / Orientation: alert Psych Psych Narrative: Patient has a flat/depressed affect Appearance: unkempt Skin Skin Narrative: Faint jaundice noted throughout the skin MDM MDM MDM Narrative Medical decision making narrative: Patient arrived to the ER hypertensive but has a past medical history of this especially with her history of chronic kidney disease on dialysis. She underwent a Workup for same complaint roughly 1 week ago that included blood work and CTA. The patient does have reproducible anterior chest wall pain which could be the cause of her recurrent chest pain especially as her recent workup did not show any signs of PE or dissection or acute coronary syndrome. However with her mild abdominal distention and slight jaundice noted there is concern this could be acute cholecystitis or that she could be developing spontaneous bacterial peritonitis and therefore elected to repeat laboratory studies. This time I did a CT of the abdomen and pelvis and only a chest x-ray as she has a recent CTA of the chest. Patient's blood work revealed chronic anemia which is at her baseline consistent with anemia of chronic disease. Her troponin is 17 which is very similar to the workup 1 week ago going against acute coronary syndrome or acute myocarditis. Patient's creatinine is elevated consistent with her history of chronic kidney disease otherwise there is no severe electrolyte abnormality. The patient's alkaline phosphatase is elevated but the remainder of her liver enzymes are normal. Chest x-ray question stable atelectasis on the right with pneumonia and left but previous x-ray and CTA from 1 week ago reviewed and chest x-ray had a similar appearance and the CTA confirmed that it was bilateral pleural effusions and not pneumonia which correlates with the fact she is not hypoxic or coughing or have a white count. CT abdomen pelvis showed ascites but also question developing acute cholecystitis which could account for her abdominal pain. Therefore an ultrasound was obtained which revealed sludge but no signs of acute infection. Therefore at this time as Patient's workup is not revealing any signs of acute coronary syndrome acute cholecystitis acute pancreatitis or signs of spontaneous bacterial tinnitus I do not feel there is need for further evaluation in the ER and she is otherwise safe for discharge Lab Data Attestation: I reviewed the patient's lab results. Labs: Laboratory Results - last 24 hr 09/23/23 00:01 WBC 5.3 RBC 3.27 L Hgb 9.8 L Hct 31.6 L MCV 96.6 MCH 30.0 MCHC 31.0 L RDW Std Deviation 59.6 H RDW Coeff of Keysha 17.8 H Plt Count 290 MPV 9.7 Immature Gran % (Auto) 0.400 Neut % (Auto) 51.4 Lymph % (Auto) 27.3 [place] % (Auto) 15.8 H Eos % (Auto) 4.3 Baso % (Auto) 0.8 Absolute Neuts (auto) 2.7 Absolute Lymphs (auto) 1.45 Nucleated RBC % 0 Sodium 131 L Potassium 5.2 H Chloride 93 L Carbon Dioxide 32.0 Anion Gap 6 BUN 51 H Creatinine 3.22 H Estim Creat Clear Calc 19.02 Est GFR (MDRD) Af Amer 20 L Est GFR (MDRD) Non-Af 16 L BUN/Creatinine Ratio 15.8 Glucose 189 H Calcium 9.1 Phosphorus 3.7 Magnesium 2.4 Total Bilirubin 0.30 Direct Bilirubin 0.17 AST 35 ALT 51 Alkaline Phosphatase 432 H Ammonia 13.0 Troponin I High Sens 17 Total Protein 7.6 Albumin 3.0 L Globulin 4.6 H Lipase 13 TSH 5.16 H Radiography Diagnostic Testing: Clinical Impression(s) from Imaging Studies Abdomen/Pelvis CT 09/22/23 23:48 IMPRESSION: Over distended gallbladder with question sludge versus tiny stone and possible minimal thickening of gallbladder wall. If right upper quadrant symptoms are present, recommend dedicated right upper quadrant ultrasound. Constipation. Status post appendectomy. No bowel obstruction. Electronically Signed: Saumya Julien MD at 1:32 EST , Chest X-Ray 09/23/23 00:00 IMPRESSION: Right basilar atelectasis, slightly improved. Left lower lobe pneumonia, stable. Electronically Signed: Saumya Julien MD at 0:33 EST , Gallbladder Ultrasound 09/23/23 01:42 IMPRESSION: 1. Sludge in an otherwise normal-appearing gallbladder. No demonstrated gallstones. 2. Pericholecystic fluid is a nonspecific finding which may represent extension of ascites fluid into the pericholecystic region or, less likely, gallbladder disease. 3. No bile duct dilatation. 4. Hepatomegaly. Electronically Signed: Hernan Guan MD at 3:55 EST , Chest x-ray as interpreted by the emergency medicine physician reveals right lower lobe atelectasis with small left-sided pleural effusion Discharge Plan Triage Chief Complaint: Chest Pain ED Provider: Mayco Hernandez Dx/Rx/DC Orders Clinical Impression: Abdominal ascites, Nonspecific chest pain, Anemia due to chronic kidney disease, End stage renal disease on dialysis, Hypertension Instructions: ED Ascites, ED Chest Pain, Uncertain Cause Prescriptions: No Action ceftriaxone 1 gram recon soln 1 g IM QHS Rx Instructions: 09/17/23-09/24/23 doxycycline monohydrate 100 mg capsule 100 mg PO BID Patient Comments: 09/17/23-09/24/23 acetaminophen 650 mg suppository 650 mg KS Q4H PRN (Reason: fever or pain) acetaminophen 325 mg capsule 325 mg PO Q4H PRN (Reason: fever or pain) albuterol sulfate 2.5 mg /3 mL (0.083 %) solution for nebulization 2.5 mg inhalation Q4H PRN (Reason: shortness of breath or wheezing) aluminum hydrox-magnesium carb 254-237.5 mg/5 mL suspension 30 ml PO Q4H PRN (Reason: GI DISTRESS) aspirin 81 mg tablet,delayed release (DR/EC) 81 mg PO DAILY Patient Comments: TAKE 1 TABLET BY MOUTH EVERY DAY atorvastatin 20 mg tablet 20 mg PO QHS bisacodyl 10 mg suppository 10 mg KS DAILY PRN (Reason: constipation) buspirone 5 mg tablet 5 mg PO TID calcium carbonate [Calcium 500] 500 mg calcium (1,250 mg) tablet,chewable 1,000 mg PO Q12H PRN (Reason: abdominal discomfort) carvedilol 25 mg tablet 25 mg PO BID Rx Instructions: must administer with a meal/food clonidine HCl 0.3 mg tablet 0.3 mg PO TID diclofenac sodium [Aleve (diclofenac)] 1 % gel 1 ea topical Q6H PRN (Reason: KNEE PAIN) ergocalciferol (vitamin D2) [Vitamin D2] 1,250 mcg (50,000 unit) capsule 1,250 mcg PO QWEEK Rx Instructions: THURSDAY famotidine [Acid Controller] 10 mg tablet 10 mg PO .COMPLEX Rx Instructions: 10 mg orally QOD; Enema 19-7 gram/118 mL enema 118 ml KS DAILY PRN (Reason: constipation) fluoxetine 10 mg capsule 10 mg PO DAILY glucagon HCl [Glucagon (HCl) Emergency Kit] 1 mg recon soln 1 mg IM Q20M PRN (Reason: hypoglycemia) Rx Instructions: until target blood sugar attained dextrose [Gluco Burst] 40 % gel 1 ea PO PRN Rx Instructions: until symptoms of low blood sugar are controlled guaifenesin [Adult Tussin Chest Congestion] 100 mg/5 mL liquid 200 mg PO Q4H PRN (Reason: congestion) hydralazine 100 mg tablet 100 mg PO TID hydroxyzine HCl 50 mg tablet 50 mg PO Q6H insulin lispro [Humalog U-100 Insulin] 100 unit/mL solution 10 unit subcut PRN Rx Instructions: FOR BLOOD SUGAR > 400 HS insulin lispro [Humalog KwikPen Insulin] 100 unit/mL insulin pen 10 unit subcut TID Rx Instructions: CM AND PER SLIDING SCALE 201-275=1U 276-350=2U 351-425=3U >425=4U ipratropium-albuterol 0.5 mg-3 mg(2.5 mg base)/3 mL solution for nebulization 3 ml continuous nebulization Q8H insulin glargine [Lantus Solostar U-100 Insulin] 100 unit/mL (3 mL) insulin pen 15 unit subcut DAILY levothyroxine [Euthyrox] 150 mcg tablet 150 mcg PO DAILY lidocaine 3.75 % cream 1 applic topical QHS losartan [Cozaar] 100 mg tablet 100 mg PO DAILY melatonin 3 mg capsule 3 mg PO QHS magnesium hydroxide [Milk of Magnesia] 400 mg/5 mL suspension 30 ml PO DAILY PRN (Reason: constipation) nifedipine 60 mg tablet extended release 24hr 60 mg PO DAILY polyethylene glycol 3350 [ClearLax] 17 gram/dose powder 17 g PO DAILY pregabalin [Lyrica] 50 mg capsule 50 mg PO BID metoclopramide HCl [Reglan] 5 mg tablet 5 mg PO DAILY Rx Instructions: WITH MEALS Dialyvite 800 0.8 mg tablet 1 tab PO DAILY sennosides-docusate sodium [2-in-1 Laxative] 8.6-50 mg tablet 1 tab-cap PO QHS torsemide 10 mg tablet 5 mg PO DAILY tramadol 50 mg tablet 50 mg PO BID doxazosin [Cardura] 4 mg tablet 4 mg PO QHS Primary Care Provider: Renetta Schmitt Referrals: Renetta Schmitt MD [Primary Care Provider] - Gerald Reeder DO [Med Staff - Active Staff] - Activity Restrictions/Additional Instructions: Your workup today shows no sign of heart disease. You do have ascites which is fluid within the abdominal wall. This sometimes will create discomfort however there are no signs of infection with this. Follow-up with your family doctor and/or gastroenterology/Dr. Reeder for further evaluation and return to the ER should you have any further concerns. Disposition Disposition: Home, Self Care Discharge Date/Time: 09/23/23 06:40
[2023-09-23 04:41] VITALS: BP 218/84; PULSE 60; RESP 11; O2SAT 100
--- NOTE | 2023-09-23 04:53 | ED.RN ---
Physicians called for transport back to [facility]. ETA 2 hours.
--- NOTE | 2023-09-23 05:26 | ED.RN ---
Called [facility] spoke with nurse Brantley, gave report on patient coming back to facility. All questions answered.
== END 2023-09-23 06:40 | disposition home or self-care (01) ==
PROVIDERS: Emergency Provider Emergency Medicine; PCP Internal Medicine; Visit Provider Emergency Medicine
DX: R18.8 Other ascites (principal); Z99.2 Dependence on renal dialysis; E10.22 Type 1 diabetes mellitus with diabetic chronic kidney disease; N18.6 End stage renal disease; I12.0 Hypertensive chronic kidney disease with stage 5 chronic kidney disease or end stage renal disease; Z79.4 Long term (current) use of insulin; R07.9 Chest pain, unspecified; R14.0 Abdominal distension (gaseous); D63.1 Anemia in chronic kidney disease; Z87.891 Personal history of nicotine dependence; E03.9 Hypothyroidism, unspecified; E78.5 Hyperlipidemia, unspecified; I25.10 Atherosclerotic heart disease of native coronary artery without angina pectoris; Z95.1 Presence of aortocoronary bypass graft
CPT/HCPCS: 71045; 74176; 76705; 80048; 80076; 82140; 83690; 83735; 84100; 84443; 84484; 85025; 93005; 96374; 96375; 96376; 99284; A4216; J2405

== ENCOUNTER 2023-10-11 13:25 | Inpatient (IN) | payer MEDICARE, MEDICAID, SELFPAY ==
[2023-10-11] VITALS (12 sets, daily range): BP systolic 154–207; BP diastolic 65–87; PULSE 58–70; RESP 15–24; TEMP 35.8–36.6; O2SAT 97–100; BMI 24.3; BMI 24.0
--- NOTE | 2023-10-11 13:41 | RAD_ITS ---
STUDY: X-RAY CHEST REASON FOR EXAM: Female, 48 years old. chest pain TECHNIQUE: Single AP portable view of the chest. COMPARISON: 09/23/2023 FINDINGS: Status post median sternotomy. No change in alveolar opacities in both lung bases consistent with bibasilar atelectasis or pneumonia. Suspect small bilateral pleural effusions. There is moderate cardiac enlargement. Normal mediastinum and yusra. Normal visualized pulmonary arteries. Normal visualized aortic arch and descending thoracic aorta. Normal visualized thoracic spine. Normal visualized ribs, clavicles, and shoulders. There is no demonstrated abnormality of the visualized soft tissue structures of the upper abdomen. RAD/Chest 1 View (Portable) IMPRESSION: No change from 09/23/2023. Electronically Signed: Kaz Gray MD at 15:01 EST ,
--- NOTE | 2023-10-11 13:41 | EKG12_ITS ---
Test Reason : SOB Blood Pressure : / mmHG Vent. Rate : 061 BPM Atrial Rate : 061 BPM P-R Int : 192 ms QRS Dur : 090 ms QT Int : 454 ms P-R-T Axes : 054 -05 065 degrees QTc Int : 457 ms Normal sinus rhythm Anteroseptal infarct (cited on or before 14-SEP-2023) Abnormal ECG Confirmed by SHANDRA PRICE, RAJINDER ([id number]), pyroglazer JENNIFER SHERMAN ([id number]) on 10/19/2023 9:41:27 AM Referred By: MINGO Confirmed By:NADIA DEVI MD
--- NOTE | 2023-10-11 13:50 | ED.VIS.CHEST ---
HPI History of Present Illness Chief Complaint: Chest Pain Informant: patient Onset/Context/Timing Onset: Today Narrative Narrative: Patient presents via EMS from [facility] secondary to recurrent chest pain. She is a history of renal disease on dialysis 4 days a week. Patient also has a history of coronary artery disease and pleural effusions. Patient was seen here on September 14 where lab work, EKG, CTA obtained and revealed no evidence of acute coronary syndrome or pulmonary embolism. She was able to be discharged back to her ECF. She was seen again on September 23 with ascites and chest pain. Workup was again negative. Patient states that she stopped her dialysis 2 hours early 2 days ago because of chest pain. Shortly after stopping her dialysis her pain seemed to resolve. She states she did not have a lot of pain yesterday. She did go out with her family but states she try to limit her fluid intake knowing that she did not receive her full run of dialysis. She presents now stating that she woke this morning at 6 AM with chest pain and shortness of breath. She feels that her abdomen and legs are more swollen than normal. [facility] Medical History Anemia in chronic kidney disease (CKD) Anxiety Congestive heart failure Constipation Gastroparesis Hyperlipidemia Hypothyroidism Insomnia Pleural effusion Stage 5 chronic kidney disease Tobacco use Type 1 diabetes mellitus Home Medications acetaminophen 325 mg capsule 325 mg PO Q4H PRN fever or pain 09/14/23 [History Last Taken 09/10/23] acetaminophen 650 mg rectal suppository 650 mg ND Q4H PRN fever or pain 09/14/23 [History Last Taken Unknown] albuterol sulfate 2.5 mg/3 mL (0.083 %) solution for nebulization 2.5 mg inhalation Q4H PRN shortness of breath or wheezing 09/14/23 [History Last Taken 09/14/23] aluminum hydrox-magnesium carb 254 mg-237.5 mg/5 mL oral suspension 30 ml PO Q4H PRN GI DISTRESS 09/14/23 [History Last Taken 09/10/23] aspirin 81 mg tablet,delayed release 81 mg PO DAILY 09/14/23 [History Last Taken 09/14/23] atorvastatin 20 mg tablet 20 mg PO QHS 09/14/23 [History Last Taken 09/13/23] bisacodyl 10 mg rectal suppository 10 mg ND DAILY PRN constipation 09/14/23 [History Last Taken Unknown] buspirone 5 mg tablet 5 mg PO BID 09/14/23 [History Last Taken 09/14/23] calcium carbonate 500 mg calcium (1,250 mg) chewable tablet (Calcium 500) 1,000 mg PO Q12H PRN abdominal discomfort 09/14/23 [History Last Taken 09/11/23] carvedilol 25 mg tablet 25 mg PO BID 09/14/23 [History Last Taken 09/14/23] clonidine HCl 0.3 mg tablet 0.3 mg PO TID 09/14/23 [History Last Taken 09/14/23] dextrose 40 % oral gel (Gluco Burst) 1 ea PO PRN 09/14/23 [History Last Taken Unknown] diclofenac sodium 1 % topical gel (Aleve (diclofenac)) 1 ea topical Q6H PRN KNEE PAIN 09/14/23 [History Last Taken 09/11/23] ergocalciferol (vitamin D2) 1,250 mcg (50,000 unit) capsule (Vitamin D2) 1,250 mcg PO QWEEK 09/14/23 [History Last Taken 09/14/23] famotidine 10 mg tablet (Acid Controller) 10 mg PO .COMPLEX 09/14/23 [History Last Taken 09/13/23] fluoxetine 10 mg capsule 10 mg PO DAILY 09/14/23 [History Last Taken 09/14/23] glucagon HCl 1 mg solution for injection (Glucagon (HCl) Emergency Kit) 1 mg IM Q20M PRN hypoglycemia 09/14/23 [History Last Taken Unknown] guaifenesin 100 mg/5 mL oral liquid (Adult Tussin Chest Congestion) 200 mg PO Q4H PRN congestion 09/14/23 [History Last Taken Unknown] hydralazine 100 mg tablet 100 mg PO TID 09/14/23 [History Last Taken 09/14/23] hydroxyzine HCl 50 mg tablet 50 mg PO Q6H 09/14/23 [History Last Taken 09/14/23] insulin glargine 100 unit/mL (3 mL) subcutaneous pen (Lantus Solostar U-100 Insulin) 18 unit subcut DAILY 09/14/23 [History Last Taken 09/14/23] insulin lispro 100 unit/mL subcutaneous pen (Humalog KwikPen (U-100) Insulin) 15 unit subcut BID 09/14/23 [History Last Taken 09/14/23] insulin lispro 100 unit/mL subcutaneous solution (Humalog U-100 Insulin) 12 unit subcut DAILY 09/14/23 [History Last Taken Unknown] ipratropium 0.5 mg-albuterol 3 mg (2.5 mg base)/3 mL nebulization soln 3 ml continuous nebulization Q8H 09/14/23 [History Last Taken 09/14/23] levothyroxine 150 mcg tablet (Euthyrox) 150 mcg PO DAILY 09/14/23 [History Last Taken 09/14/23] lidocaine 3.75 % topical cream 1 applic topical QHS 09/14/23 [History Last Taken 09/13/23] losartan 100 mg tablet (Cozaar) 100 mg PO DAILY 09/14/23 [History Last Taken 09/14/23] magnesium hydroxide 400 mg/5 mL oral suspension (Milk of Magnesia) 30 ml PO DAILY PRN constipation 09/14/23 [History Last Taken 09/10/23] melatonin 3 mg capsule 3 mg PO QHS 09/14/23 [History Last Taken 09/13/23] metoclopramide HCl 5 mg tablet (Reglan) 5 mg PO DAILY 09/14/23 [History Last Taken 09/14/23] nifedipine 60 mg tablet,extended release 24 hr 60 mg PO DAILY 09/14/23 [History Last Taken 09/14/23] polyethylene glycol 3350 17 gram/dose oral powder (ClearLax) 17 g PO DAILY 09/14/23 [History Last Taken 09/14/23] sennosides 8.6 mg-docusate sodium 50 mg tablet (2-in-1 Laxative) 1 tab-cap PO QHS 09/14/23 [History Last Taken 09/14/23] sodium phosphates 19 gram-7 gram/118 mL enema (Enema) 118 ml ND DAILY PRN constipation 09/14/23 [History Last Taken Unknown] torsemide 10 mg tablet 5 mg PO DAILY 09/14/23 [History Last Taken Unknown] tramadol 50 mg tablet 25 mg PO BID 09/14/23 [History Last Taken 09/14/23] vitamin B complex-vitamin C-folic acid 0.8 mg tablet (Dialyvite 800) 1 tab PO DAILY 09/14/23 [History Last Taken 09/14/23] Lactobacillus rhamnosus GG 10 billion cell capsule (Culturelle) 1 cap PO BID 10/11/23 [History Last Taken Unknown] buspirone 10 mg tablet 10 mg PO QHS 10/11/23 [History Last Taken Unknown] calcitriol 0.25 mcg capsule 0.25 mcg PO MOWEFR 10/11/23 [History Last Taken Unknown] calcium acetate(phosphat bind) 667 mg tablet 667 mg PO DAILY 10/11/23 [History Last Taken Unknown] midodrine 5 mg tablet 5 mg PO DAILY 10/11/23 [History Last Taken Unknown] Allergy/AdvReac Type Severity Reaction Status Date / Time Sulfa (Sulfonamide Allergy PT UNSURE Verified 10/11/23 14:13 Antibiotics) OF REACTION Social History Smoking Status: Former smoker ROS ROS ED Constitutional Constitutional ED: Denies chills or fever(s) Eyes Eyes: Denies discharge from eye(s) ENT ENT ED: Denies discharge from eye(s), rhinorrhea or sore throat Cardiovascular Cardiovascular: Reports chest pain; Denies palpitations Respiratory/Chest Respiratory/Chest: Reports dyspnea; Denies cough Gastrointestinal Gastrointestinal: Reports abdominal pain; Denies diarrhea, nausea or vomiting Musculoskeletal Musculoskeletal: Reports extremity pain; Denies back pain Integumentary Denies Abrasions or rash Neurologic Neurologic: Denies headache(s) or weakness Psychiatric Psychiatric: Denies anxiety or depression Allergic/Immunologic Allergic/Immunologic ED: Denies lip swelling or urticaria EXAM Physical Exam Const Vital Signs: 10/11/23 13:26 10/11/23 13:26 10/11/23 14:11 Temperature 97.6 F L Temperature Source Oral Pulse Rate 61 Respiratory Rate 24 H Respiratory Effort Labored Respiratory Pattern Tachypnea Blood Pressure 154/67 H Blood Pressure Mean 96 Pulse Ox 99 Oxygen Delivery Method Nasal Cannula Room Air Oxygen Flow Rate (L/min) 3 10/11/23 14:21 Temperature Temperature Source Pulse Rate 64 Respiratory Rate 15 Respiratory Effort Respiratory Pattern Blood Pressure 171/72 H Blood Pressure Mean 105 Pulse Ox 98 Oxygen Delivery Method Nasal Cannula Oxygen Flow Rate (L/min) 3 Constitutional Narrative: Chronically ill-appearing but in no acute distress. HEENT Reports moist mucous membranes Eyes EOMs intact bilaterally Chest Wall inspection of chest normal and palpation of chest normal Resp normal respiratory effort and clear to auscultation bilaterally Cardio regular rate and regular rhythm GI GI Narrative: Abdomen soft and distended. Active bowel sounds noted. Extremity Extremity Narrative: 3-4+ lower extremity edema, symmetric. Neuro oriented x3 Neuro Narrative: No focal neurologic deficit. MDM MDM MDM Narrative Medical decision making narrative: Patient placed on panel monitor. EKG obtained to evaluate for cardiac arrhythmia/ischemia. Chest x-ray obtained to evaluate for acute lung pathology, cardiac size, or mediastinal abnormality. IV line established. Labwork obtained to evaluate for leukocytosis, anemia, and electrolyte derangement. History & Record Review Discussion w/independent historian: Patient Additional record(s) reviewed:: Prior ED visit and Prior labs Lab Data Attestation: I reviewed the patient's lab results. Labs: Laboratory Results - last 24 hr 10/11/23 14:04 WBC 5.1 RBC 3.62 L Hgb 11.3 L Hct 35.3 L MCV 97.5 MCH 31.2 MCHC 32.0 RDW Std Deviation 59.1 H RDW Coeff of Keysha 16.3 H Plt Count 236 MPV 9.5 Immature Gran % (Auto) 0.200 Neut % (Auto) 61.0 Lymph % (Auto) 20.4 Dundy % (Auto) 11.1 H Eos % (Auto) 6.3 H Baso % (Auto) 1.0 Absolute Neuts (auto) 3.1 Absolute Lymphs (auto) 1.03 Nucleated RBC % 0 Sodium 132 L Potassium 6.2 H* Chloride 97 L Carbon Dioxide 29.0 Anion Gap 6 BUN 89 H Creatinine 5.52 H Estim Creat Clear Calc 10.97 Est GFR (MDRD) Af Amer 11 L Est GFR (MDRD) Non-Af 9 L BUN/Creatinine Ratio 16.1 Glucose 46 L Calcium 9.0 Total Bilirubin 0.40 Direct Bilirubin 0.16 AST 21 ALT 43 Alkaline Phosphatase 295 H Troponin I High Sens 15 Total Protein 7.0 Albumin 3.2 Globulin 3.8 Radiography Chest X-Ray - ED: 1 View, Read by ED Physician, Chronic Changes, Right Effusion and Left Effusion Diagnostic Testing: Clinical Impression(s) from Imaging Studies Chest X-Ray 10/11/23 13:41 IMPRESSION: No change from 09/23/2023. Electronically Signed: Kaz Gray MD at 15:01 EST , EKG Initial EKG: Attestation: I personally reviewed and interpreted this EKG as follows: Interpretation: Sinus Rhythm (Sinus at 61 with no acute ischemia.) Treatment and Re-Evaluation :: CBC was normal white count 5.1 with normal differential. Hemoglobin is 11.3. Chemistry studies significant for a potassium of 6.2. BUN is 89 and creatinine is 5.52. Glucose is reported to be 46. LFTs are unremarkable other than an alk phos of 295. Troponin is normal at 15. As I was reviewing the patient's labs and noted her low blood sugar, nursing staff stated the patient felt like her blood sugar was low. It was rechecked at bedside and in the mid 20s. She is given an amp of D50. She is given juice to drink. 250 mL of D5 will be run over the next hour. Portable chest x-ray shows small bilateral pleural effusions, unchanged when compared to prior study per my interpretation. Radiology interpretation is reviewed and agrees. At this time patient's blood sugar is 116. She is still receiving the 250 cc of D5 normal saline. I will give her Kayexalate, albuterol, insulin, and another amp of D50 for hyperkalemia. Given her elevated potassium and low blood sugars I do feel she will warrant observation overnight for close monitoring. She is stable this time and I do not feel she needs emergent dialysis. This can be done tomorrow morning. She has seen Dr. Arboleda per her records from the [facility]. Discharge Plan Triage Chief Complaint: Chest Pain ED Provider: Hetal Hutson Dx/Rx/DC Orders Clinical Impression: Dyspnea, Hypoglycemia, Chest pain, Hyperkalemia Prescriptions: No Action acetaminophen 650 mg suppository 650 mg ND Q4H PRN (Reason: fever or pain) acetaminophen 325 mg capsule 325 mg PO Q4H PRN (Reason: fever or pain) albuterol sulfate 2.5 mg /3 mL (0.083 %) solution for nebulization 2.5 mg inhalation Q4H PRN (Reason: shortness of breath or wheezing) aluminum hydrox-magnesium carb 254-237.5 mg/5 mL suspension 30 ml PO Q4H PRN (Reason: GI DISTRESS) aspirin 81 mg tablet,delayed release (DR/EC) 81 mg PO DAILY Patient Comments: TAKE 1 TABLET BY MOUTH EVERY DAY atorvastatin 20 mg tablet 20 mg PO QHS bisacodyl 10 mg suppository 10 mg ND DAILY PRN (Reason: constipation) buspirone 5 mg tablet 5 mg PO BID calcium carbonate [Calcium 500] 500 mg calcium (1,250 mg) tablet,chewable 1,000 mg PO Q12H PRN (Reason: abdominal discomfort) carvedilol 25 mg tablet 25 mg PO BID Rx Instructions: must administer with a meal/food clonidine HCl 0.3 mg tablet 0.3 mg PO TID diclofenac sodium [Aleve (diclofenac)] 1 % gel 1 ea topical Q6H PRN (Reason: KNEE PAIN) ergocalciferol (vitamin D2) [Vitamin D2] 1,250 mcg (50,000 unit) capsule 1,250 mcg PO QWEEK Rx Instructions: THURSDAY famotidine [Acid Controller] 10 mg tablet 10 mg PO .COMPLEX Rx Instructions: 10 mg orally QOD; Enema 19-7 gram/118 mL enema 118 ml ND DAILY PRN (Reason: constipation) fluoxetine 10 mg capsule 10 mg PO DAILY glucagon HCl [Glucagon (HCl) Emergency Kit] 1 mg recon soln 1 mg IM Q20M PRN (Reason: hypoglycemia) Rx Instructions: until target blood sugar attained dextrose [Gluco Burst] 40 % gel 1 ea PO PRN Rx Instructions: until symptoms of low blood sugar are controlled guaifenesin [Adult Tussin Chest Congestion] 100 mg/5 mL liquid 200 mg PO Q4H PRN (Reason: congestion) hydralazine 100 mg tablet 100 mg PO TID hydroxyzine HCl 50 mg tablet 50 mg PO Q6H insulin lispro [Humalog U-100 Insulin] 100 unit/mL solution 12 unit subcut DAILY Rx Instructions: IN THE EVENING FOR BLOOD SUGAR <120 insulin lispro [Humalog KwikPen Insulin] 100 unit/mL insulin pen 15 unit subcut BID Rx Instructions: CM AND PER SLIDING SCALE 201-275=1U 276-350=2U 351-425=3U >425=4U ipratropium-albuterol 0.5 mg-3 mg(2.5 mg base)/3 mL solution for nebulization 3 ml continuous nebulization Q8H insulin glargine [Lantus Solostar U-100 Insulin] 100 unit/mL (3 mL) insulin pen 18 unit subcut DAILY levothyroxine [Euthyrox] 150 mcg tablet 150 mcg PO DAILY lidocaine 3.75 % cream 1 applic topical QHS losartan [Cozaar] 100 mg tablet 100 mg PO DAILY melatonin 3 mg capsule 3 mg PO QHS magnesium hydroxide [Milk of Magnesia] 400 mg/5 mL suspension 30 ml PO DAILY PRN (Reason: constipation) nifedipine 60 mg tablet extended release 24hr 60 mg PO DAILY polyethylene glycol 3350 [ClearLax] 17 gram/dose powder 17 g PO DAILY metoclopramide HCl [Reglan] 5 mg tablet 5 mg PO DAILY Rx Instructions: WITH MEALS Dialyvite 800 0.8 mg tablet 1 tab PO DAILY sennosides-docusate sodium [2-in-1 Laxative] 8.6-50 mg tablet 1 tab-cap PO QHS torsemide 10 mg tablet 5 mg PO DAILY tramadol 50 mg tablet 25 mg PO BID buspirone 10 mg tablet 10 mg PO QHS calcitriol 0.25 mcg capsule 0.25 mcg PO MOWEFR Culturelle 10 billion cell capsule 1 cap PO BID midodrine 5 mg tablet 5 mg PO DAILY Rx Instructions: do not give last dose of day after 6PM or within 4 hrs of bedtime calcium acetate(phosphat bind) 667 mg tablet 667 mg PO DAILY Primary Care Provider: Renetta Schmitt Referrals: Renetta Schmitt MD [Primary Care Provider] - Disposition Disposition: Acute Care Hospital [facility]
[2023-10-11 14:14] LABS: Absolute Lymphocyte Count 1.03 X10^3/uL (0.83-4.51); Absolute Neutrophil Count 3.1 X10^3/uL (2.0-7.7); Basophil# 0.05 X10^3/uL; Eosinophil# 0.32 X10^3/uL; Eosinophils% 6.3 % (0-5); Hematocrit 35.3 % (37-47); Hemoglobin 11.3 g/dL (12.0-15.0); Lymphocyte # 1.03 X10^3/ul (0.83-4.51); Lymphocyte % 20.4 % (19-41); Mean Corpuscular Hgb 31.2 pg (27.0-32.0); Mean Corpuscular Volume 97.5 fL (81-99); Mean Platelet Vol. 9.5 fl (6.2-12.0); Monocyte# 0.56 X10^3/uL; Monocyte% 11.1 % (0-10); NRBC Flagged by Analyzer 0 % (0-5); Neutrophil # 3.09 X10^3/uL (2.7-7.7); Platelet Count 236 K/mm3 (150-450); RBC Distribution Width CV 16.3 % (11.6-14.6); RBC Distribution Width SD 59.1 fl (35.1-43.9); Red Blood Count 3.62 M/mm3 (4.2-5.4); White Blood Count 5.1 K/mm3 (4.4-11.0)
[2023-10-11] MEDS: Aspirin 81 MG TAB.CHEW 324 MG PO (14:20)
[2023-10-11] MEDS: Acetaminophen 500 MG Tablet 1000 MG PO (14:49)
--- NOTE | 2023-10-11 14:58 | ED.RN ---
went in to give pt tylenol. was sleeping and when nurse in woke up and moaning saying my chest hurts so bad but then dozes off with nurse still in room scanning meds.
[2023-10-11 15:11] LABS: AST(SGOT) 21 U/L (15-37); Alanine Aminotransfer ALT/SGPT 43 U/L (13-56); Albumin, Serum 3.2 g/dL (3.2-5.0); Alkaline Phosphatase 295 U/L (45-117); Anion Gap 6 (5-15); BUN 89 mg/dL (7-18); BUN/Creat Ratio 16.1 RATIO (10-20); Bilirubin, Direct 0.16 mg/dL (0.00-0.30); Chloride 97 mmol/L (98-107); Creatinine, Serum 5.52 mg/dL (0.55-1.02); EST Glomerular Filtration Rate 9 mL/min (>60); Est Glom Filt Rate - Afr Amer 11 mL/min (>60); Estimated Creatinine Clearance 10.97 ml/min; Globulin 3.8 g/dL (2.2-4.2); Glucose 46 mg/dL (74-106); Potassium 6.2 mmol/L (3.5-5.1); Sodium Level 132 mmol/L (136-145); Troponin-I HS (w/2H Reflex) 15 pg/mL (3.0-54.0)
[2023-10-11] MEDS: Pantoprazole Sodium 40 MG in 0.9% Normal Saline (100mL MB+) 100 ML 330 MG IV (15:19)
[2023-10-11] MEDS: Dextrose 50%-Water 25 GM/50 ML DISP.SYRIN IV ×4 (15:24→21:06)
[2023-10-11] MEDS: NACL IV (15:39)
[2023-10-11] MEDS: DEXTROSE IV (15:39)
[2023-10-11 15:40] LABS: Bedside Glucose 28 mg/dL (74-106)
[2023-10-11] MEDS: Albuterol 2.5 MG/3 ML VIAL.NEB. 10 MG INHALATION (15:48)
[2023-10-11] MEDS: Sodium Polystyrene Sulfonate 15 GM/60 ML UDC PO (15:50)
--- NOTE | 2023-10-11 15:58 | ED.RN ---
1515 iv protonix hung. pt very diaphoretic. walked up to get accucheck machine to recheck pt and dr. mccall talking of glucose being 48 on lab draw an hour ago . bs checked on pt and was 28. dr. mccall aware and eric rn in to push 1amp d50 as per verbal protocol. pt awake but drowsy.
[2023-10-11 16:02] LABS: Bedside Glucose 116 mg/dL (74-106)
--- NOTE | 2023-10-11 16:07 | PCM.HP.STD ---
HPI - General General Date of Admission: 10/11/23 Date of Service: 10/11/23 Chief Complaint: Chest pain HPI Narrative GODFREY MODI, is a 48-year-old female with history of type 1 diabetes, hypertension, coronary artery disease, hypothyroidism, COPD and pleural effusions, anxiety and depression, CHF, end-stage renal disease on HD presented to [facility] [place] from [facility] 10/11/2023 for recurrent chest pain. She was seen here roughly a month ago and worked up for ACS or PE but lab work, EKG, CTA revealed no evidence of acute process so she was discharged back to [facility]. Seen again September 23 with ascites and chest pain and workup was again nonacute. Stopped her dialysis 2 hours early 2 days ago because of chest pain and after stopping her dialysis the pain seemed to resolve. Did not have a lot of pain yesterday but woke up this morning at 6 AM with chest pain shortness of breath and feels that her abdomen and legs are more swollen than normal. Chest x-ray unchanged from previous, alk phos slightly elevated she 95 but CBC and liver profile otherwise unremarkable. BMP revealed potassium of 6.2 with sodium of 132, BUN 89 creatinine of 5.52 and additionally glucose of 46. Troponin within normal limits. Repeat glucose in 20s and patient given D5. Also given Kayexalate, albuterol, insulin and additional D50 and hospitalist contacted for admission. Patient evaluated at bedside, glucose 200 at time of evaluation, patient is sleepy but will wake up and answer questions though does so selectively, reports that she gets intermittent sharp chest pain that lasts for less than a minute in the center of her chest and was reproducible on palpation, has some shortness of breath but could not expand upon that further, possibly some abdominal pain but also would not comment on that further, unable to obtain further history due to cooperation. [facility] Medical History (Updated 10/11/23 @ 16:[address] Shira Krueger MD) Anemia in chronic kidney disease (CKD) Anxiety Congestive heart failure Constipation Gastroparesis Hyperlipidemia Hypothyroidism Insomnia Pleural effusion Stage 5 chronic kidney disease Tobacco use Type 1 diabetes mellitus Home Medications acetaminophen 325 mg capsule 325 mg PO Q4H PRN fever or pain 09/14/23 [History Last Taken 09/10/23] acetaminophen 650 mg rectal suppository 650 mg IN Q4H PRN fever or pain 09/14/23 [History Last Taken Unknown] albuterol sulfate 2.5 mg/3 mL (0.083 %) solution for nebulization 2.5 mg inhalation Q4H PRN shortness of breath or wheezing 09/14/23 [History Last Taken 09/14/23] aluminum hydrox-magnesium carb 254 mg-237.5 mg/5 mL oral suspension 30 ml PO Q4H PRN GI DISTRESS 09/14/23 [History Last Taken 09/10/23] aspirin 81 mg tablet,delayed release 81 mg PO DAILY 09/14/23 [History Last Taken 09/14/23] atorvastatin 20 mg tablet 20 mg PO QHS 09/14/23 [History Last Taken 09/13/23] bisacodyl 10 mg rectal suppository 10 mg IN DAILY PRN constipation 09/14/23 [History Last Taken Unknown] buspirone 5 mg tablet 5 mg PO BID 09/14/23 [History Last Taken 09/14/23] calcium carbonate 500 mg calcium (1,250 mg) chewable tablet (Calcium 500) 1,000 mg PO Q12H PRN abdominal discomfort 09/14/23 [History Last Taken 09/11/23] carvedilol 25 mg tablet 25 mg PO BID 09/14/23 [History Last Taken 09/14/23] clonidine HCl 0.3 mg tablet 0.3 mg PO TID 09/14/23 [History Last Taken 09/14/23] dextrose 40 % oral gel (Gluco Burst) 1 ea PO PRN 09/14/23 [History Last Taken Unknown] diclofenac sodium 1 % topical gel (Aleve (diclofenac)) 1 ea topical Q6H PRN KNEE PAIN 09/14/23 [History Last Taken 09/11/23] ergocalciferol (vitamin D2) 1,250 mcg (50,000 unit) capsule (Vitamin D2) 1,250 mcg PO QWEEK 09/14/23 [History Last Taken 09/14/23] famotidine 10 mg tablet (Acid Controller) 10 mg PO .COMPLEX 09/14/23 [History Last Taken 09/13/23] fluoxetine 10 mg capsule 10 mg PO DAILY 09/14/23 [History Last Taken 09/14/23] glucagon HCl 1 mg solution for injection (Glucagon (HCl) Emergency Kit) 1 mg IM Q20M PRN hypoglycemia 09/14/23 [History Last Taken Unknown] guaifenesin 100 mg/5 mL oral liquid (Adult Tussin Chest Congestion) 200 mg PO Q4H PRN congestion 09/14/23 [History Last Taken Unknown] hydralazine 100 mg tablet 100 mg PO TID 09/14/23 [History Last Taken 09/14/23] hydroxyzine HCl 50 mg tablet 50 mg PO Q6H 09/14/23 [History Last Taken 09/14/23] insulin glargine 100 unit/mL (3 mL) subcutaneous pen (Lantus Solostar U-100 Insulin) 18 unit subcut DAILY 09/14/23 [History Last Taken 09/14/23] insulin lispro 100 unit/mL subcutaneous pen (Humalog KwikPen (U-100) Insulin) 15 unit subcut BID 09/14/23 [History Last Taken 09/14/23] insulin lispro 100 unit/mL subcutaneous solution (Humalog U-100 Insulin) 12 unit subcut DAILY 09/14/23 [History Last Taken Unknown] ipratropium 0.5 mg-albuterol 3 mg (2.5 mg base)/3 mL nebulization soln 3 ml continuous nebulization Q8H 09/14/23 [History Last Taken 09/14/23] levothyroxine 150 mcg tablet (Euthyrox) 150 mcg PO DAILY 09/14/23 [History Last Taken 09/14/23] lidocaine 3.75 % topical cream 1 applic topical QHS 09/14/23 [History Last Taken 09/13/23] losartan 100 mg tablet (Cozaar) 100 mg PO DAILY 09/14/23 [History Last Taken 09/14/23] magnesium hydroxide 400 mg/5 mL oral suspension (Milk of Magnesia) 30 ml PO DAILY PRN constipation 09/14/23 [History Last Taken 09/10/23] melatonin 3 mg capsule 3 mg PO QHS 09/14/23 [History Last Taken 09/13/23] metoclopramide HCl 5 mg tablet (Reglan) 5 mg PO DAILY 09/14/23 [History Last Taken 09/14/23] nifedipine 60 mg tablet,extended release 24 hr 60 mg PO DAILY 09/14/23 [History Last Taken 09/14/23] polyethylene glycol 3350 17 gram/dose oral powder (ClearLax) 17 g PO DAILY 09/14/23 [History Last Taken 09/14/23] sennosides 8.6 mg-docusate sodium 50 mg tablet (2-in-1 Laxative) 1 tab-cap PO QHS 09/14/23 [History Last Taken 09/14/23] sodium phosphates 19 gram-7 gram/118 mL enema (Enema) 118 ml IN DAILY PRN constipation 09/14/23 [History Last Taken Unknown] torsemide 10 mg tablet 5 mg PO DAILY 09/14/23 [History Last Taken Unknown] tramadol 50 mg tablet 25 mg PO BID 09/14/23 [History Last Taken 09/14/23] vitamin B complex-vitamin C-folic acid 0.8 mg tablet (Dialyvite 800) 1 tab PO DAILY 09/14/23 [History Last Taken 09/14/23] Lactobacillus rhamnosus GG 10 billion cell capsule (Culturelle) 1 cap PO BID 10/11/23 [History Last Taken Unknown] buspirone 10 mg tablet 10 mg PO QHS 10/11/23 [History Last Taken Unknown] calcitriol 0.25 mcg capsule 0.25 mcg PO MOWEFR 10/11/23 [History Last Taken Unknown] calcium acetate(phosphat bind) 667 mg tablet 667 mg PO DAILY 10/11/23 [History Last Taken Unknown] midodrine 5 mg tablet 5 mg PO DAILY 10/11/23 [History Last Taken Unknown] Allergy/AdvReac Type Severity Reaction Status Date / Time Sulfa (Sulfonamide Allergy PT UNSURE Verified 10/11/23 14:13 Antibiotics) OF REACTION Social History Smoking Status: Former smoker ROS ROS Narrative Intermittent sharp chest pain that last for less than a minute, some shortness of breath, possibly some abdominal pain, patient would not answer other questions, would only selectively wake up to answer certain questions primarily about her chest pain despite glucose being improved Vital Signs Vital Signs Vital Signs: 10/11/23 13:26 10/11/23 13:26 10/11/23 14:11 Temperature 97.6 F L Temperature Source Oral Pulse Rate 61 Respiratory Rate 24 H Respiratory Effort Labored Respiratory Pattern Tachypnea Blood Pressure 154/67 H Blood Pressure Mean 96 Pulse Ox 99 Oxygen Delivery Method Nasal Cannula Room Air Oxygen Flow Rate (L/min) 3 10/11/23 14:21 10/11/23 15:50 Temperature Temperature Source Pulse Rate 64 58 L Respiratory Rate 15 18 Respiratory Effort Respiratory Pattern Normal Blood Pressure 171/72 H Blood Pressure Mean 105 Pulse Ox 98 Oxygen Delivery Method Nasal Cannula Oxygen Flow Rate (L/min) 3 Weight Weight: 66.497 kg Body Mass Index (BMI) 24.3 Physical Exam Narrative General: Easily woken but goes back to sleep quickly and only selectively answers questions HEENT: Atraumatic, normocephalic Eyes: Anicteric, Neck: Supple Respiratory: Crackles towards the bases Cardiovascular: Regular rate GI: Soft, no rebound, guarding, rigidity Extremities: 1+ lower extremity edema Musculoskeletal: Moving all extremities Neuro: No overt focal neurological deficits but patient not particularly cooperative with exam Skin: No rashes appreciated Psych: Only selectively wakes up to answer certain questions Results Lab / Micro Data 10/11/23 14:04 10/11/23 14:04 Labs: Laboratory Results - last 24 hr 10/11/23 14:04: WBC 5.1, RBC 3.62 L, Hgb 11.3 L, Hct 35.3 L, MCV 97.5, MCH 31.2, MCHC 32.0, RDW Std Deviation 59.1 H, RDW Coeff of Keysha 16.3 H, Plt Count 236, MPV 9.5, Immature Gran % (Auto) 0.200, Neut % (Auto) 61.0, Lymph % (Auto) 20.4, Charlton % (Auto) 11.1 H, Eos % (Auto) 6.3 H, Baso % (Auto) 1.0, Absolute Neuts (auto) 3.1, Absolute Lymphs (auto) 1.03, Nucleated RBC % 0, Sodium 132 L, Potassium 6.2 H*, Chloride 97 L, Carbon Dioxide 29.0, Anion Gap 6, BUN 89 H, Creatinine 5.52 H, Estim Creat Clear Calc 10.97, Est GFR (MDRD) Af Amer 11 L, Est GFR (MDRD) Non-Af 9 L, BUN/Creatinine Ratio 16.1, Glucose 46 L, Calcium 9.0, Total Bilirubin 0.40, Direct Bilirubin 0.16, AST 21, ALT 43, Alkaline Phosphatase 295 H, Troponin I High Sens 15, Total Protein 7.0, Albumin 3.2, Globulin 3.8 10/11/23 15:22: POC Glucose 28 L* 10/11/23 15:38: POC Glucose 116 H Imaging Radiology Impression Chest X-Ray 10/11/23 13:41 IMPRESSION: No change from 09/23/2023. Electronically Signed: Kaz Gray MD at 15:01 EST , Assessment & Plan Assessment/Plan (1) Hyperkalemia: (2) Hypoglycemia: (3) Stage 5 chronic kidney disease: (4) Hypothyroidism: (5) Anxiety: (6) Type 1 diabetes mellitus: (7) Chest pain: PLAN: Plan #Hyperkalemia -Potassium 6.2 -Likely secondary to not completing dialysis Thursday -Nephrology consult -Kayexalate, insulin and dextrose, albuterol given in ED -EKG NSR, HR 61 w/ qtc 457, no peaking of twaves -Will repeat potassium at 3 hr marcos #Type 1 diabetes mellitus w/ hypoglycemia on arrival -Glc 46 in ED w/ repeat in 20's, pt given dextrose pushes w/ improvement to 200's -Glucose checks and sliding scale insulin -Hold scheduled short acting and will continue long acting at much lower dose with hold parameters #Decreased LOC -Pt wakes up easily and will answer questions selectively then will fall back asleep -Did not improve with improvement in glucose -Will check ABG -Check ammonia -Hold hydroxyzine -Recent TSH 5.16 #Chest pain -Sharp and reproducible, sounds more chest wall in nature than cardiac but does have risk factors -EKG non specific -Trop WNL, will repeat -Had CTA last month when presented similarly which was negative -Possibly 2/2 to uremia -CXR unchanged from previous -Admit to telemetry -Will obtain echo to assess EF and wall motion -Aspirin -Statin -Lipid panel in AM -Supportive care -Can consider stress test or cards c/s pending results and clinical progress #ESRD on HD -Consult nephrology -Renal diet -Daily weights, I's and O's # History of coronary artery disease -Aspirin, statin, beta-salty -As above # Chronic hyponatremia -Appears to be at baseline -Continue present management #?hx CHF -Listed on history but unclear and pt not particularly cooperative with exam -echo ordered -Daily weights, I's and O's # Anxiety and depression -Continue home fluoxetine, BuSpar -Hold home hydroxyzine d/t sedation -Supportive care #Hypothyroidism -Continue Synthroid # History of COPD -Continue home inhalers -i/s #Hypertension -Patient on multiple home medications -Presently vitally stable, continue Coreg and clonidine #DVT ppx: Heparin subcu Shira Krugeer MD Time spent in the patient's overall evaluation,decision-making process, review of diagnostic data, adjustment of management, discussion with other providers, nursing nursing and ancillary staff involved in patient's care documentation, 61 minutes Charges/Coding Visit Charges Inpatient E&M: 27396 Init Hosp L2
--- NOTE | 2023-10-11 16:08 | ED.RN ---
1530 pt given 2 apple juice at this time. bs rechecked in 15min and was up to 118. order for 2nd amp d50 per dr. mccall for hyperkalemia meds. d5ns up at 250/hr x1
[2023-10-11 16:09] LABS: Reflex Troponin-HS? (from REC) Y
--- NOTE | 2023-10-11 16:10 | ED.RN ---
1550 2nd amp d50 pushed. pt getting aerosol at this time.
--- NOTE | 2023-10-11 16:11 | ED.RN ---
1610 dr. warner in to see pt. bs 200 now. kaexalatye and iv insulin given per order.
[2023-10-11 16:55] LABS: Allen Test Positive; Base Excess 0 mmol/L (-2 to +2); Blood Gas Specimen Type ART; Mode Not entered; O2 Delivery Device Not entered; PO2 102 mmHG (75-100); SITE R Radial; SO2 98 % (95-99); Total Carbon Dioxide 26 mmol/L; pCO2 42.1 mmHg (35-45); pH 7.38 (7.35-7.45)
[2023-10-11 17:05] LABS: Bedside Glucose 130 mg/dL (74-106)
[2023-10-11 17:05] LABS: Bedside Glucose 200 mg/dL (74-106)
--- NOTE | 2023-10-11 17:13 | ECHOD_ITS ---
Reason For Study: CHEST PAIN Procedure This was a 2D Doppler, Color Flow transthoracic echocardiogram. Exam performed portable in patient room. Left Ventricle Normal LV size. The estimated ejection fraction is 55-60 %. No evidence for diastolic dysfunction. No regional wall motion abnormalities noted. Right Ventricle Normal RV size. Normal systolic function. Atria Normal left atrium. Normal right atrium. No doppler evidence for ASD. Mitral Valve There is no mitral valve stenosis. Trivial mitral valve insufficiency. Tricuspid Valve There is no tricuspid stenosis. Trivial tricuspid valve insufficiency. Pulmonary artery systolic pressure is 50 mmHg. Aortic Valve Trisinus/trileaflet aortic valve. There is no aortic stenosis. No aortic valve insufficiency. Pulmonic Valve There is no pulmonic valvular stenosis. Trivial pulmonic valve insufficiency. Great Vessels Normal aortic root. Pericardium/Pleural No pericardial effusion. MMode/2D Measurements & Calculations LVIDd: 4.9 cm IVSd: 1.1 cm Ao root diam: 2.9 cm LVIDs: 3.5 cm LVPWd: 1.1 cm RVDd: 3.5 cm FS: 28.5 % LAV(MOD-bp): 35.9 ml LVAd ap4: 27.1 cm2 SV(MOD-sp4): 39.1 ml LAV(MOD-bp) Indexed: 20.9 ml/m2 LVLd ap4: 8.0 cm LAV(MOD-sp2): 39.0 ml EDV(MOD-sp4): 75.9 ml LAV(MOD-sp4): 31.2 ml EDV(sp4-el): 78.3 ml LVAs ap4: 17.6 cm2 LVLs ap4: 7.1 cm ESV(MOD-sp4): 36.8 ml ESV(sp4-el): 36.9 ml EF(MOD-sp4): 51.5 % EF(sp4-el): 52.8 % SV(sp4-el): 41.3 ml LA A4 area: 14.8 cm2 LA dimension(2D): 4.0 cm RA A4 area: 13.0 cm2 TAPSE: 1.4 cm Time Measurements MV dec time: 0.14 sec Doppler Measurements & Calculations MV E max neville: 102.3 cm/sec Lat Peak E' Neville: 8.1 cm/sec Med Peak E' Neville: 7.1 cm/sec MV A max neville: 77.2 cm/sec E/E' lat: 12.7 E/E' med: 14.5 MV E/A: 1.3 Ao V2 max: 148.1 cm/sec LV V1 max: 119.0 cm/sec PA V2 max: 81.2 cm/sec Ao max P.8 mmHg LV V1 max P.7 mmHg TR max neville: 331.1 cm/sec TR max P.9 mmHg ECHO/Echo Complete Interpretation Summary The estimated ejection fraction is 55-60 %. No evidence for diastolic dysfunction. Trivial mitral valve insufficiency. Ordering Physician: Shira Krueger Referring Physician: LARS IBANEZ Performed By: Poornima Cohen RDCS
[2023-10-11 17:23] LABS: Troponin-I HS 17 pg/mL (3.0-54.0)
--- NOTE | 2023-10-11 17:24 | PCM.CONS.R ---
Assessment & Plan Assessment/Plan (1) ESRD (end stage renal disease): (2) Hyperkalemia: (3) Chest pain: PLAN: Plan Impression/Plan: The patient is a 48-year-old woman with past history of ESRD, type 1 diabetes mellitus, hypertension, CAD, COPD, hypothyroidism, and hyperlipidemia. The patient presents to the hospital on 10/11/2023 with 1 day history of chest pain. The patient has had intermittent chest pain since August 2023. During evaluation in ED, the patient was also found to have hyperkalemia which was treated medically. Nephrology is following for ESRD and dialysis management. ESRD. The patient normally dialyzes at [facility] on NxStage 5 days/week. The patient shorten her hemodialysis treatment on 10/09/2023 because of chest pain. There is no urgent need for dialysis today. Hyperkalemia was treated medically. I will arrange for hemodialysis tomorrow morning. Hyperkalemia. The patient presented with potassium level of 6.2 mmol/L. She is being treated with insulin/D50 along with sodium polystyrene sulfonate. I will arrange for dialysis tomorrow using low potassium dialysate. Continue to follow potassium levels. Chest pain. Presentation of chest pain is atypical. Troponin is not high. Doubt the patient has ACS. Further workup as per hospital medicine service. HPI Consult Data Date of Consult: 10/11/23 HPI Narrative Reason for Consultation: ESRD. HPI Narrative: The patient is a 48-year-old woman with past history of ESRD, type 1 diabetes mellitus, hypertension, CAD status post CABG HFpEF, COPD, hypothyroidism, and hyperlipidemia. The patient presents to hospital on 10/11/2023 with chest pain. The patient has had 2 other visits to ED from [facility] with chest pain in August. CT PE was done in August and was negative for PE. The patient returned to ED on 09/23/2023 with chest pain and ascites but was not admitted. The patient is a resident at [facility] and received dialysis 5 days a week using NxStage machine. Because of chest pain which occurred during dialysis, the patient did stop her dialysis early on 10/09/2023 prior to admission. Chest pain resolved after completion of dialysis. However, chest pain recurred again the morning of presentation. She is admitted for atypical chest pain. Echocardiogram has been ordered. During workup in ED, patient was found to have hyperkalemia. Her serum potassium is 6.2 mmol/L with hyperglycemia or severe metabolic acidosis. The patient was treated for hyperkalemia with temporizing measure and SPS. Nephrology is asked see the patient because of ESRD. The patient is somnolent during my visit. She does awaken to voice but falls asleep relatively quickly. She denies chest pain. Shortness of breath has improved. There is no nausea or vomiting. [facility] Medical History (Updated 10/11/23 @ 17:[address] Sherri Roldan MD) Anemia in chronic kidney disease (CKD) Anxiety Congestive heart failure Constipation Gastroparesis Hyperlipidemia Hypothyroidism Insomnia Pleural effusion Stage 5 chronic kidney disease Tobacco use Type 1 diabetes mellitus Home Medications acetaminophen 325 mg capsule 325 mg PO Q4H PRN fever or pain 09/14/23 [History Last Taken 09/10/23] acetaminophen 650 mg rectal suppository 650 mg MA Q4H PRN fever or pain 09/14/23 [History Last Taken Unknown] albuterol sulfate 2.5 mg/3 mL (0.083 %) solution for nebulization 2.5 mg inhalation Q4H PRN shortness of breath or wheezing 09/14/23 [History Last Taken 09/14/23] aluminum hydrox-magnesium carb 254 mg-237.5 mg/5 mL oral suspension 30 ml PO Q4H PRN GI DISTRESS 09/14/23 [History Last Taken 09/10/23] aspirin 81 mg tablet,delayed release 81 mg PO DAILY 09/14/23 [History Last Taken 09/14/23] atorvastatin 20 mg tablet 20 mg PO QHS 09/14/23 [History Last Taken 09/13/23] bisacodyl 10 mg rectal suppository 10 mg MA DAILY PRN constipation 09/14/23 [History Last Taken Unknown] buspirone 5 mg tablet 5 mg PO BID 09/14/23 [History Last Taken 09/14/23] calcium carbonate 500 mg calcium (1,250 mg) chewable tablet (Calcium 500) 1,000 mg PO Q12H PRN abdominal discomfort 09/14/23 [History Last Taken 09/11/23] carvedilol 25 mg tablet 25 mg PO BID 09/14/23 [History Last Taken 09/14/23] clonidine HCl 0.3 mg tablet 0.3 mg PO TID 09/14/23 [History Last Taken 09/14/23] dextrose 40 % oral gel (Gluco Burst) 1 ea PO PRN 09/14/23 [History Last Taken Unknown] diclofenac sodium 1 % topical gel (Aleve (diclofenac)) 1 ea topical Q6H PRN KNEE PAIN 09/14/23 [History Last Taken 09/11/23] ergocalciferol (vitamin D2) 1,250 mcg (50,000 unit) capsule (Vitamin D2) 1,250 mcg PO QWEEK 09/14/23 [History Last Taken 09/14/23] famotidine 10 mg tablet (Acid Controller) 10 mg PO .COMPLEX 09/14/23 [History Last Taken 09/13/23] fluoxetine 10 mg capsule 10 mg PO DAILY 09/14/23 [History Last Taken 09/14/23] glucagon HCl 1 mg solution for injection (Glucagon (HCl) Emergency Kit) 1 mg IM Q20M PRN hypoglycemia 09/14/23 [History Last Taken Unknown] guaifenesin 100 mg/5 mL oral liquid (Adult Tussin Chest Congestion) 200 mg PO Q4H PRN congestion 09/14/23 [History Last Taken Unknown] hydralazine 100 mg tablet 100 mg PO TID 09/14/23 [History Last Taken 09/14/23] hydroxyzine HCl 50 mg tablet 50 mg PO Q6H 09/14/23 [History Last Taken 09/14/23] insulin glargine 100 unit/mL (3 mL) subcutaneous pen (Lantus Solostar U-100 Insulin) 18 unit subcut DAILY 09/14/23 [History Last Taken 09/14/23] insulin lispro 100 unit/mL subcutaneous pen (Humalog KwikPen (U-100) Insulin) 15 unit subcut BID 09/14/23 [History Last Taken 09/14/23] insulin lispro 100 unit/mL subcutaneous solution (Humalog U-100 Insulin) 12 unit subcut DAILY 09/14/23 [History Last Taken Unknown] ipratropium 0.5 mg-albuterol 3 mg (2.5 mg base)/3 mL nebulization soln 3 ml continuous nebulization Q8H 09/14/23 [History Last Taken 09/14/23] levothyroxine 150 mcg tablet (Euthyrox) 150 mcg PO DAILY 09/14/23 [History Last Taken 09/14/23] lidocaine 3.75 % topical cream 1 applic topical QHS 09/14/23 [History Last Taken 09/13/23] losartan 100 mg tablet (Cozaar) 100 mg PO DAILY 09/14/23 [History Last Taken 09/14/23] magnesium hydroxide 400 mg/5 mL oral suspension (Milk of Magnesia) 30 ml PO DAILY PRN constipation 09/14/23 [History Last Taken 09/10/23] melatonin 3 mg capsule 3 mg PO QHS 09/14/23 [History Last Taken 09/13/23] metoclopramide HCl 5 mg tablet (Reglan) 5 mg PO DAILY 09/14/23 [History Last Taken 09/14/23] nifedipine 60 mg tablet,extended release 24 hr 60 mg PO DAILY 09/14/23 [History Last Taken 09/14/23] polyethylene glycol 3350 17 gram/dose oral powder (ClearLax) 17 g PO DAILY 09/14/23 [History Last Taken 09/14/23] sennosides 8.6 mg-docusate sodium 50 mg tablet (2-in-1 Laxative) 1 tab-cap PO QHS 09/14/23 [History Last Taken 09/14/23] sodium phosphates 19 gram-7 gram/118 mL enema (Enema) 118 ml MA DAILY PRN constipation 09/14/23 [History Last Taken Unknown] torsemide 10 mg tablet 5 mg PO DAILY 09/14/23 [History Last Taken Unknown] tramadol 50 mg tablet 25 mg PO BID 09/14/23 [History Last Taken 09/14/23] vitamin B complex-vitamin C-folic acid 0.8 mg tablet (Dialyvite 800) 1 tab PO DAILY 09/14/23 [History Last Taken 09/14/23] Lactobacillus rhamnosus GG 10 billion cell capsule (Culturelle) 1 cap PO BID 10/11/23 [History Last Taken Unknown] buspirone 10 mg tablet 10 mg PO QHS 10/11/23 [History Last Taken Unknown] calcitriol 0.25 mcg capsule 0.25 mcg PO MOWEFR 10/11/23 [History Last Taken Unknown] calcium acetate(phosphat bind) 667 mg tablet 667 mg PO DAILY 10/11/23 [History Last Taken Unknown] midodrine 5 mg tablet 5 mg PO DAILY 10/11/23 [History Last Taken Unknown] Allergy/AdvReac Type Severity Reaction Status Date / Time Sulfa (Sulfonamide Allergy PT UNSURE Verified 10/11/23 14:13 Antibiotics) OF REACTION Social History Smoking Status: Former smoker ROS ROS Narrative As per HPI, otherwise noncontributory. Physical Exam Narrative General: Somnolent, awakens to voice but difficult to keep awake. HEENT: Normocephalic, atraumatic. Mucous membrane moist without erythema. PERRLA, EOMI. Hearing is intact. Neck: Supple, no JVD. Trachea is midline. No thyromegaly or lymphadenopathy. Cardiovascular: Normal S1, S2. No rubs, murmurs, or gallops. Respiratory: Decreased breath sound at bases bilaterally. No wheezing. Abdomen: Normal bowel sounds, soft, nontender, no guarding or rebound, no organomegaly. Extremities: There is 3+ lower extremity edema. Anasarca. Musculoskeletal: Full passive range of motion, no joint swelling. Psychiatric: Depressed mood and flat affect. Skin: Warm and dry, no rash. Lab / Micro Data 10/11/23 14:04 10/11/23 14:04 Labs: Laboratory Results - last 24 hr 10/11/23 14:04: WBC 5.1, RBC 3.62 L, Hgb 11.3 L, Hct 35.3 L, MCV 97.5, MCH 31.2, MCHC 32.0, RDW Std Deviation 59.1 H, RDW Coeff of Keysha 16.3 H, Plt Count 236, MPV 9.5, Immature Gran % (Auto) 0.200, Neut % (Auto) 61.0, Lymph % (Auto) 20.4, Davie % (Auto) 11.1 H, Eos % (Auto) 6.3 H, Baso % (Auto) 1.0, Absolute Neuts (auto) 3.1, Absolute Lymphs (auto) 1.03, Nucleated RBC % 0, Sodium 132 L, Potassium 6.2 H*, Chloride 97 L, Carbon Dioxide 29.0, Anion Gap 6, BUN 89 H, Creatinine 5.52 H, Estim Creat Clear Calc 10.97, Est GFR (MDRD) Af Amer 11 L, Est GFR (MDRD) Non-Af 9 L, BUN/Creatinine Ratio 16.1, Glucose 46 L, Calcium 9.0, Total Bilirubin 0.40, Direct Bilirubin 0.16, AST 21, ALT 43, Alkaline Phosphatase 295 H, Troponin I High Sens 15, Total Protein 7.0, Albumin 3.2, Globulin 3.8 10/11/23 15:22: POC Glucose 28 L* 10/11/23 15:38: POC Glucose 116 H 10/11/23 16:03: POC Glucose 200 H 10/11/23 16:33: POC Glucose 130 H 10/11/23 16:45: Ammonia 42.0 H, Troponin I High Sens 17 ABG Data ABG results: ABG 10/11/23 16:51 Specimen Type ART Sample Site R Radial pH 7.38 Bicarbonate Actual 25.0 Total CO2 26 Base Excess 0 O2 Saturation 98 O2 % 4.0 ABG pCO2 42.1 ABG pO2 102 H Adria Test Positive O2 Delivery Device Not entered Vent Mode Not entered Imaging Radiology Impression Chest X-Ray 10/11/23 13:41 IMPRESSION: No change from 09/23/2023. Electronically Signed: Kaz Gray MD at 15:01 EST ,
--- NOTE | 2023-10-11 17:26 | EKG12_ITS ---
Test Reason : Blood Pressure : / mmHG Vent. Rate : 059 BPM Atrial Rate : 059 BPM P-R Int : 186 ms QRS Dur : 098 ms QT Int : 490 ms P-R-T Axes : 064 058 075 degrees QTc Int : 485 ms Sinus bradycardia Low voltage QRS Septal infarct , age undetermined Abnormal ECG When compared with ECG of 11-OCT-2023 13:30, MANUAL COMPARISON REQUIRED, DATA IS UNCONFIRMED Confirmed by JOSEPH PRICE, CHARAN ([id number]), offline editor SP MUNSON ([id number]) on 10/12/2023 1:02:52 PM Referred By: SUBHA Confirmed By:CHARAN RUIZ MD
[2023-10-11] MEDS: hydrALAZINE 50 MG Tablet 100 MG PO (18:46)
[2023-10-11] MEDS: 0.9% Saline Lock 10 ML Syringe IV ×4 (18:53→21:15)
[2023-10-11] MEDS: hydrALAZINE 20 MG/ML Vial 10 MG IV (18:53)
--- NOTE | 2023-10-11 18:58 | PCM.HOSP.N ---
Hospitalist Note Asked to reevaluate patient on floor for blood sugar of 41, SBP 190s and difficult getting her temperature. Gave orders for amp of D50 that I would see her. Evaluated patient at bedside, axillary temp obtained and within normal limits, glucose improved to 200s with dextrose and orders given for IV hydralazine while awaiting the p.o. from pharmacy. Patient more awake and alert than in the ED, primarily just complaining that she is cold in the room. Advised to check glucose in an hour or sooner if there are any concerns
[2023-10-11 19:46] LABS: Anion Gap 7 (5-15); BUN 87 mg/dL (7-18); Calcium,Total 8.8 mg/dL (8.5-10.1); Chloride 98 mmol/L (98-107); Creatinine, Serum 5.43 mg/dL (0.55-1.02); EST Glomerular Filtration Rate 9 mL/min (>60); Est Glom Filt Rate - Afr Amer 11 mL/min (>60); Estimated Creatinine Clearance 11.15 ml/min; Glucose 118 mg/dL (74-106); Potassium 5.7 mmol/L (3.5-5.1); Sodium Level 131 mmol/L (136-145)
[2023-10-11 19:47] LABS: Bedside Glucose 96 mg/dL (74-106)
[2023-10-11 19:49] LABS: Bedside Glucose 55 mg/dL (74-106)
[2023-10-11] MEDS: oxyCODONE 5 MG Tablet 2.5 MG PO (19:50)
--- NOTE | 2023-10-11 20:36 | PCM.HOSP.N ---
Hospitalist Note Patient with ongoing hypoglycemia, requiring additional dextrose amps, will start low dose D5NS IVFs.
[2023-10-11] MEDS: Heparin Injection (Vial) 5,000 UNIT/ML VIAL 5000 UNIT SC (20:53)
[2023-10-11] MEDS: busPIRone 5 MG Tablet 10 MG PO (20:53)
[2023-10-11] MEDS: cloNIDine HCl 0.1 MG Tablet 0.299999999999999989 MG PO (20:54)
[2023-10-11] MEDS: Dextrose 5%-0.2% NS 1,000 ML 30 ML IV (20:54)
[2023-10-11] MEDS: Carvedilol 25 MG Tablet PO (20:54)
[2023-10-11] MEDS: Atorvastatin Calcium 20 MG Tablet PO (20:55)
[2023-10-11 21:34] LABS: Bedside Glucose 73 mg/dL (74-106)
[2023-10-11 21:34] LABS: Bedside Glucose 56 mg/dL (74-106)
[2023-10-11 21:52] LABS: Bedside Glucose 117 mg/dL (74-106)
[2023-10-11] MEDS: Ipratropium/Albuterol Sulfate 3 ML AMPUL.NEB INHALATION (23:29)
[2023-10-11 23:53] LABS: Bedside Glucose 67 mg/dL (74-106)
[2023-10-12] VITALS (30 sets, daily range): BP systolic 102–236; BP diastolic 52–110; PULSE 68–89; RESP 16–24; TEMP 36.4–36.9; O2SAT 95–100; BMI 24.3; BMI 23.2
[2023-10-12] MEDS: oxyCODONE 5 MG Tablet 2.5 MG PO ×5 (00:05→22:26)
[2023-10-12 00:28] LABS: Bedside Glucose 80 mg/dL (74-106)
[2023-10-12] MEDS: hydrALAZINE 50 MG Tablet 100 MG PO ×4 (00:55→22:28)
--- NOTE | 2023-10-12 01:45 | CT_ITS ---
STUDY: CT BRAIN WITHOUT CONTRAST REASON FOR EXAM: Female, 48 years old. Headache RADIATION DOSAGE (If Supplied By Facility): CTDIvol = ( 44.99 ) mGy, DLP = ( 796.11 ) mGycm TECHNIQUE: Transaxial CT imaging of the brain was performed without administration of intravenous contrast material. Individualized dose optimization techniques were used for this CT. COMPARISON: No relevant priors. FINDINGS: Normal soft tissue structures. Normal calvarium. There is calcification of the bilateral vertebral arteries. There is calcification of the cavernous carotid arteries. Normal size ventricles and extra-axial spaces for the patient''s age. Normal white matter tracts of the cerebral hemispheres. Normal basal ganglia and thalami. Normal brainstem. Normal cerebellum. There is no intracranial hemorrhage. There are no findings of an acute ischemic infarction. Normal visualized paranasal sinuses. CT/Brain/Head without Contrast IMPRESSION: Normal unenhanced CT scan of the brain. Electronically Signed: Abby Vizcaino MD at 4:00 EST ,
--- NOTE | 2023-10-12 01:47 | PCM.HOSP.N ---
Hospitalist Note RN noting patient with ongoing headache and elevated BP intermittently with SBP 200 range since admission. Will administer additional dose clonidine and hydralazine. CT head ordered to be cautious.
[2023-10-12] MEDS: hydrALAZINE 20 MG/ML Vial 10 MG IV ×3 (02:00→16:25)
[2023-10-12] MEDS: cloNIDine HCl 0.1 MG Tablet 0.100000000000000006 MG PO (02:00)
[2023-10-12] MEDS: 0.9% Saline Lock 10 ML Syringe IV ×2 (02:01→23:27)
[2023-10-12] MEDS: Morphine 2 MG/ML Syringe IV (02:01)
[2023-10-12 02:28] LABS: Bedside Glucose 94 mg/dL (74-106)
[2023-10-12] MEDS: cloNIDine HCl 0.1 MG Tablet 0.299999999999999989 MG PO ×3 (05:20→22:30)
[2023-10-12] MEDS: Levothyroxine 150 MCG Tablet PO (05:21)
[2023-10-12] MEDS: Metoclopramide 5 MG TABLET PO (05:21)
[2023-10-12] MEDS: Ipratropium/Albuterol Sulfate 3 ML AMPUL.NEB INHALATION ×2 (06:37→13:01)
[2023-10-12 06:46] LABS: Bedside Glucose 77 mg/dL (74-106)
[2023-10-12 07:30] LABS: Absolute Lymphocyte Count 0.87 X10^3/uL (0.83-4.51); Absolute Neutrophil Count 2.7 X10^3/uL (2.0-7.7); Basophil# 0.04 X10^3/uL; Basophil% 0.9 % (0-1); Eosinophils% 8.9 % (0-5); Hematocrit 36.1 % (37-47); Hemoglobin 11.5 g/dL (12.0-15.0); Lymphocyte # 0.87 X10^3/ul (0.83-4.51); Lymphocyte % 19.3 % (19-41); Mean Corp Hgb Conc 31.9 g/dL (32-36); Mean Corpuscular Hgb 30.7 pg (27.0-32.0); Mean Corpuscular Volume 96.3 fL (81-99); Mean Platelet Vol. 9.4 fl (6.2-12.0); Monocyte# 0.48 X10^3/uL; Monocyte% 10.7 % (0-10); NRBC Flagged by Analyzer 0 % (0-5); Platelet Count 245 K/mm3 (150-450); RBC Distribution Width CV 16.2 % (11.6-14.6); RBC Distribution Width SD 57.8 fl (35.1-43.9); Red Blood Count 3.75 M/mm3 (4.2-5.4); White Blood Count 4.5 K/mm3 (4.4-11.0)
[2023-10-12] MEDS: Acetaminophen 325 MG Tablet 650 MG PO (07:46)
[2023-10-12] MEDS: Ondansetron 4 MG/2 ML Vial IV (07:47)
[2023-10-12 07:54] LABS: International Normalized Ratio 1.1
[2023-10-12] MEDS: 0.9% Normal Saline 1,000 ML IV.SOLN. 1000 ML OPERA.SITE (07:59)
[2023-10-12] MEDS: PureFlow B 2K Dialysis Soln 1 BAG 6 BAG PF (07:59)
[2023-10-12 08:01] LABS: ALB/GLOB Ratio 0.8 RATIO (0.9-2.4); AST(SGOT) 33 U/L (15-37); Alanine Aminotransfer ALT/SGPT 48 U/L (13-56); Alkaline Phosphatase 263 U/L (45-117); Anion Gap 7 (5-15); BUN 90 mg/dL (7-18); BUN/Creat Ratio 15.8 RATIO (10-20); Calcium,Total 8.9 mg/dL (8.5-10.1); Chloride 96 mmol/L (98-107); Creatinine, Serum 5.68 mg/dL (0.55-1.02); EST Glomerular Filtration Rate 8 mL/min (>60); Est Glom Filt Rate - Afr Amer 10 mL/min (>60); Estimated Creatinine Clearance 10.66 ml/min; Glucose 81 mg/dL (74-106); Magnesium 2.9 mg/dL (1.6-2.6); Phosphorus 5.1 mg/dL (2.5-4.9); Sodium Level 129 mmol/L (136-145)
--- NOTE | 2023-10-12 08:31 | PN.HOSP_ITS ---
Reason for Visit Reason for Visit: Diagnoses Hypothyroidism, unspecified (10/11/23) Type 1 diabetes mellitus without complications (10/11/23) Hypoglycemia, unspecified (10/11/23) Hyperkalemia (10/11/23) Anxiety disorder, unspecified (10/11/23) Chronic kidney disease, stage 5 (10/11/23) End stage renal disease (10/11/23) Chest pain, unspecified (10/11/23) Subjective Subjective Complaining of headache this morning. Also having nausea. Did undergo dialysis where they removed 3.5 L. Objective Data Objective Data Vital Signs: Vital Signs Temp Pulse Resp BP Pulse Ox O2 Del Method O2 Flow Rate 36.4 C L 76 22 H 204/103 H 100 Nasal Cannula 2 10/12/23 03:00 10/12/23 08:25 10/12/23 08:25 10/12/23 08:25 10/12/23 03:00 10/12/23 08:25 10/12/23 08:25 Oxygen Flow Rate (L/min) 2 Oxygen Delivery Method Nasal Cannula Weight: 66.5 kg Body Mass Index (BMI) 24.3 Intake & Output: Intake and Output for Last 24 Hours 10/10/23 10/11/23 10/12/23 23:59 23:59 23:59 Intake Total 900 / 900 631 / 631 Balance 900 / 900 631 / 631 Lab / Micro Data 10/12/23 06:40 10/12/23 06:40 Labs: Laboratory Results - last 24 hr 10/11/23 14:04: WBC 5.1, RBC 3.62 L, Hgb 11.3 L, Hct 35.3 L, MCV 97.5, MCH 31.2, MCHC 32.0, RDW Std Deviation 59.1 H, RDW Coeff of Keysha 16.3 H, Plt Count 236, MPV 9.5, Immature Gran % (Auto) 0.200, Neut % (Auto) 61.0, Lymph % (Auto) 20.4, Boyd % (Auto) 11.1 H, Eos % (Auto) 6.3 H, Baso % (Auto) 1.0, Absolute Neuts (auto) 3.1, Absolute Lymphs (auto) 1.03, Nucleated RBC % 0, Sodium 132 L, Potassium 6.2 H*, Chloride 97 L, Carbon Dioxide 29.0, Anion Gap 6, BUN 89 H, Creatinine 5.52 H , Estim Creat Clear Calc 10.97, Est GFR (MDRD) Af Amer 11 L, Est GFR (MDRD) Non- Af 9 L, BUN/Creatinine Ratio 16.1, Glucose 46 L, Calcium 9.0, Total Bilirubin 0.40, Direct Bilirubin 0.16, AST 21, ALT 43, Alkaline Phosphatase 295 H, Troponin I High Sens 15, Total Protein 7.0, Albumin 3.2, Globulin 3.8 10/11/23 15:22: POC Glucose 28 L* 10/11/23 15:38: POC Glucose 116 H 10/11/23 16:03: POC Glucose 200 H 10/11/23 16:33: POC Glucose 130 H 10/11/23 16:45: Ammonia 42.0 H, Troponin I High Sens 17 10/11/23 17:30: POC Glucose 55 L 10/11/23 19:18: Sodium 131 L, Potassium 5.7 H, Chloride 98, Carbon Dioxide 26.0, Anion Gap 7, BUN 87 H, Creatinine 5.43 H, Estim Creat Clear Calc 11.15, Est GFR (MDRD) Af Amer 11 L, Est GFR (MDRD) Non-Af 9 L, BUN/Creatinine Ratio 16.0, Glucose 118 H, Calcium 8.8 10/11/23 19:23: POC Glucose 96 10/11/23 20:09: POC Glucose 73 L 10/11/23 20:45: POC Glucose 56 L 10/11/23 21:35: POC Glucose 117 H 10/11/23 22:34: POC Glucose 80 10/11/23 23:34: POC Glucose 67 L 10/12/23 01:33: POC Glucose 94 10/12/23 06:26: POC Glucose 77 10/12/23 06:40: WBC 4.5, RBC 3.75 L, Hgb 11.5 L, Hct 36.1 L, MCV 96.3, MCH 30.7, MCHC 31.9 L, RDW Std Deviation 57.8 H, RDW Coeff of Keysha 16.2 H, Plt Count 245, MPV 9.4, Immature Gran % (Auto) 0.200, Neut % (Auto) 60.0, Lymph % (Auto) 19.3, Boyd % (Auto) 10.7 H, Eos % (Auto) 8.9 H, Baso % (Auto) 0.9, Absolute Neuts (auto) 2.7, Absolute Lymphs (auto) 0.87, Nucleated RBC % 0, PT 14.0, INR 1.1, Sodium 129 L, Potassium 6.0 H*, Chloride 96 L, Carbon Dioxide 26.0, Anion Gap 7, BUN 90 H, Creatinine 5.68 H, Estim Creat Clear Calc 10.66, Est GFR (MDRD) Af Amer 10 L, Est GFR (MDRD) Non-Af 8 L, BUN/Creatinine Ratio 15.8, Glucose 81, Calcium 8.9, Phosphorus 5.1 H, Magnesium 2.9 H, Total Bilirubin 0.40, AST 33, ALT 48, Alkaline Phosphatase 263 H, Total Protein 7.0, Albumin 3.0 L, Globulin 4.0, Albumin/Globulin Ratio 0.8 L ABG Data ABG results: ABG 10/11/23 16:51 Specimen Type ART Sample Site R Radial pH 7.38 Bicarbonate Actual 25.0 Total CO2 26 Base Excess 0 O2 Saturation 98 O2 % 4.0 ABG pCO2 42.1 ABG pO2 102 H Adria Test Positive O2 Delivery Device Not entered Vent Mode Not entered Radiography Diagnostic Testing: Radiology Impression Chest X-Ray 10/11/23 13:41 IMPRESSION: No change from 09/23/2023. Electronically Signed: Kaz Gray MD at 15:01 EST , Brain CT 10/12/23 01:45 IMPRESSION: Normal unenhanced CT scan of the brain. Electronically Signed: Abby Vizcaino MD at 4:00 EST , Physical Exam Const alert and no apparent distress HEENT head/scalp atraumatic and moist oral mucous membranes Resp normal respiratory effort, no retractions, no use of accessory muscles and clear to auscultation bilaterally Cardio regular rate, regular rhythm, S1 normal heart sound and S2 normal heart sound GI normal to inspection, nondistended, normoactive bowel sounds, soft to palpation, non-tender and non-distended Extremity General Extremity: edema bilateral lower extremity Details: moderate Assessment & Plan Assessment/Plan (1) Hyperkalemia: (2) Hypoglycemia: (3) Stage 5 chronic kidney disease: (4) Hypothyroidism: (5) Anxiety: (6) Type 1 diabetes mellitus: (7) Chest pain: PLAN: Plan Hyperkalemia * Admission Potassium 6.2 * Likely secondary to not completing dialysis Thursday * Nephrology consult * Kayexalate, insulin and dextrose, albuterol given in ED * EKG NSR, HR 61 w/ qtc 457, no peaking of t-waves Hypoglycemia * Type 1 diabetes mellitus w/ hypoglycemia on arrival * Glc 46 in ED w/ repeat in 20's, pt given dextrose pushes w/ improvement to 200's * Glucose checks and sliding scale insulin * Hold scheduled short acting and will continue long acting at much lower dose with hold parameters * restart glargine, but at lower dose. Hypertensive urgency * Likely has hypertensive headache as well. * Continue carvedilol 25 BID, clonidine 0.3 TID, losartan 100, nifedipine 60. Continue PRN hydralazine Decreased LOC * Pt wakes up easily and will answer questions selectively then will fall back asleep * Did not improve with improvement in glucose * Ammonia 42. However, today the patient is much more alert. Hold off on lactulose. * ABG unremarkable * Hold hydroxyzine * Recent TSH 5.16 * Resolved. I suspect this may have been intentional on the patient's behalf. Chest pain * Sharp and reproducible, sounds more chest wall in nature than cardiac but does have risk factors * EKG non specific-Trop WNL * Had CTA last month when presented similarly which was negative * Will obtain echo to assess EF and wall motion * Aspirin, Statin, Lipid panel in AM Chronic conditions: * ESRD on HD-Consult nephrology-Renal diet-Daily weights, I's and O's * History of coronary artery disease-Aspirin, statin, [id number]-Ea above * Chronic hyponatremia-Appears to be at baseline-Continue present management * hx CHF-Listed on history but unclear and pt not particularly cooperative with exam-echo ordered-Daily weights, I's and O's * Anxiety and depression-Continue home fluoxetine, BuSpar-Hold home hydroxyzine d/t sedation-Supportive care * Hypothyroidism-Continue Synthroid * History of COPD-Continue home inhalers-i/s * Hypertension-Patient on multiple home medications-Presently vitally stable, continue Coreg and clonidine DVT ppx: Heparin subcu Charges/Coding Visit Charges Inpatient E&M: 98509 Subs Hosp L3
--- NOTE | 2023-10-12 09:09 | CASEMGMT ---
SW met with patient, introduced self and role at [facility]. Patient confirmed her plan is to return to [facility] at discharge. Plan: d/c back to [facility] pending insurance authorization. Mary MCKENZIE
--- NOTE | 2023-10-12 09:24 | CASEMGMT ---
Addendum entered by Veronica Bustamante 10/12/23 09:48: Patient will need precert to return. Veronica Bustamante, Discharge Planning Asst. Original Note: Discharge Planning Updates sent via [facility] to [facility]. Asked if precert will be needed. Awaiting response. Veronica Bustamante, Discharge Planning Asst.
[2023-10-12] MEDS: Heparin Injection (Vial) 5,000 UNIT/ML VIAL 5000 UNIT SC (09:30)
[2023-10-12] MEDS: Aspirin E.C. 81 MG Tablet PO (09:30)
[2023-10-12] MEDS: Furosemide 20 MG Tablet 10 MG PO (09:31)
[2023-10-12] MEDS: Calcium Acetate 667 MG Capsule PO ×3 (09:31→16:24)
[2023-10-12] MEDS: Losartan Potassium 100 MG Tablet PO (09:31)
[2023-10-12] MEDS: FLUoxetine 10 MG Capsule PO (09:35)
[2023-10-12] MEDS: NIFEdipine 60 MG Tablet PO (09:35)
[2023-10-12] MEDS: Famotidine 20 MG Tablet 10 MG PO (09:45)
[2023-10-12] MEDS: Carvedilol 25 MG Tablet PO ×2 (09:45→22:31)
[2023-10-12] MEDS: busPIRone 5 MG Tablet PO ×2 (09:47→16:24)
[2023-10-12] MEDS: Glucerna Shake 120 ML LIQUID PO ×2 (09:50→11:50)
[2023-10-12] MEDS: DiphenhydrAMINE 50 MG/ML Syringe 25 MG IV ×2 (11:57→16:25)
[2023-10-12] MEDS: proCHLORPERazine 10 MG/2 ML Vial IV ×3 (11:57→23:23)
[2023-10-12 12:19] LABS: Bedside Glucose 170 mg/dL (74-106)
--- NOTE | 2023-10-12 12:54 | PCM.PN.REN ---
Subjective Subjective Events noted Objective Data Objective Data Vital Signs: Vital Signs Temp Pulse Resp BP Pulse Ox O2 Del Method O2 Flow Rate 97.6 F L 80 16 208/77 H 97 Room Air 2 10/12/23 11:52 10/12/23 11:52 10/12/23 11:52 10/12/23 11:52 10/12/23 11:52 10/12/23 11:52 10/12/23 11:00 Oxygen Flow Rate (L/min) 2 Oxygen Delivery Method Room Air Weight: 63.2 kg Body Mass Index (BMI) 23.2 Intake & Output: Intake and Output for Last 24 Hours 10/10/23 10/11/23 10/12/23 23:59 23:59 23:59 Intake Total 900 / 900 631 / 631 Output Total 3400 / 3400 Balance 900 / 900 -2769 / -2769 Lab / Micro Data 10/12/23 06:40 10/12/23 06:40 Labs: Laboratory Results - last 24 hr 10/11/23 14:04: WBC 5.1, RBC 3.62 L, Hgb 11.3 L, Hct 35.3 L, MCV 97.5, MCH 31.2, MCHC 32.0, RDW Std Deviation 59.1 H, RDW Coeff of Keysha 16.3 H, Plt Count 236, MPV 9.5, Immature Gran % (Auto) 0.200, Neut % (Auto) 61.0, Lymph % (Auto) 20.4, [place] % (Auto) 11.1 H, Eos % (Auto) 6.3 H, Baso % (Auto) 1.0, Absolute Neuts (auto) 3.1, Absolute Lymphs (auto) 1.03, Nucleated RBC % 0, Sodium 132 L, Potassium 6.2 H*, Chloride 97 L, Carbon Dioxide 29.0, Anion Gap 6, BUN 89 H, Creatinine 5.52 H, Estim Creat Clear Calc 10.97, Est GFR (MDRD) Af Amer 11 L, Est GFR (MDRD) Non-Af 9 L, BUN/Creatinine Ratio 16.1, Glucose 46 L, Calcium 9.0, Total Bilirubin 0.40, Direct Bilirubin 0.16, AST 21, ALT 43, Alkaline Phosphatase 295 H, Troponin I High Sens 15, Total Protein 7.0, Albumin 3.2, Globulin 3.8 10/11/23 15:22: POC Glucose 28 L* 10/11/23 15:38: POC Glucose 116 H 10/11/23 16:03: POC Glucose 200 H 10/11/23 16:33: POC Glucose 130 H 10/11/23 16:45: Ammonia 42.0 H, Troponin I High Sens 17 10/11/23 17:30: POC Glucose 55 L 10/11/23 19:18: Sodium 131 L, Potassium 5.7 H, Chloride 98, Carbon Dioxide 26.0, Anion Gap 7, BUN 87 H, Creatinine 5.43 H, Estim Creat Clear Calc 11.15, Est GFR (MDRD) Af Amer 11 L, Est GFR (MDRD) Non-Af 9 L, BUN/Creatinine Ratio 16.0, Glucose 118 H, Calcium 8.8 10/11/23 19:23: POC Glucose 96 10/11/23 20:09: POC Glucose 73 L 10/11/23 20:45: POC Glucose 56 L 10/11/23 21:35: POC Glucose 117 H 10/11/23 22:34: POC Glucose 80 10/11/23 23:34: POC Glucose 67 L 10/12/23 01:33: POC Glucose 94 10/12/23 06:26: POC Glucose 77 10/12/23 06:40: WBC 4.5, RBC 3.75 L, Hgb 11.5 L, Hct 36.1 L, MCV 96.3, MCH 30.7, MCHC 31.9 L, RDW Std Deviation 57.8 H, RDW Coeff of Keysha 16.2 H, Plt Count 245, MPV 9.4, Immature Gran % (Auto) 0.200, Neut % (Auto) 60.0, Lymph % (Auto) 19.3, [place] % (Auto) 10.7 H, Eos % (Auto) 8.9 H, Baso % (Auto) 0.9, Absolute Neuts (auto) 2.7, Absolute Lymphs (auto) 0.87, Nucleated RBC % 0, PT 14.0, INR 1.1, Sodium 129 L, Potassium 6.0 H*, Chloride 96 L, Carbon Dioxide 26.0, Anion Gap 7, BUN 90 H, Creatinine 5.68 H, Estim Creat Clear Calc 10.66, Est GFR (MDRD) Af Amer 10 L, Est GFR (MDRD) Non-Af 8 L, BUN/Creatinine Ratio 15.8, Glucose 81, Calcium 8.9, Phosphorus 5.1 H, Magnesium 2.9 H, Total Bilirubin 0.40, AST 33, ALT 48, Alkaline Phosphatase 263 H, Total Protein 7.0, Albumin 3.0 L, Globulin 4.0, Albumin/Globulin Ratio 0.8 L 10/12/23 11:48: POC Glucose 170 H ABG Data ABG results: ABG 10/11/23 16:51 Specimen Type ART Sample Site R Radial pH 7.38 Bicarbonate Actual 25.0 Total CO2 26 Base Excess 0 O2 Saturation 98 O2 % 4.0 ABG pCO2 42.1 ABG pO2 102 H Adria Test Positive O2 Delivery Device Not entered Vent Mode Not entered Radiography Diagnostic Testing: Radiology Impression Chest X-Ray 10/11/23 13:41 IMPRESSION: No change from 09/23/2023. Electronically Signed: Kaz Gray MD at 15:01 EST , Echocardiogram 10/11/23 17:13 Interpretation Summary The estimated ejection fraction is 55-60 %. No evidence for diastolic dysfunction. Trivial mitral valve insufficiency. Ordering Physician: Shira Krueger Referring Physician: LARS IBANEZ Performed By: Poornima Cohen RDCS Brain CT 10/12/23 01:45 IMPRESSION: Normal unenhanced CT scan of the brain. Electronically Signed: Abby Vizcaino MD at 4:00 EST , Physical Exam Narrative General: Somnolent, awakens to voice but difficult to keep awake. HEENT: Normocephalic, atraumatic. Mucous membrane moist without erythema. PERRLA, EOMI. Hearing is intact. Neck: Supple, no JVD. Trachea is midline. No thyromegaly or lymphadenopathy. Cardiovascular: Normal S1, S2. No rubs, murmurs, or gallops. Respiratory: Decreased breath sound at bases bilaterally. No wheezing. Abdomen: Normal bowel sounds, soft, nontender, no guarding or rebound, no organomegaly. Extremities: There is 3+ lower extremity edema. Anasarca. Musculoskeletal: Full passive range of motion, no joint swelling. Psychiatric: Depressed mood and flat affect. Skin: Warm and dry, no rash. Assessment & Plan Assessment/Plan (1) ESRD (end stage renal disease): (2) Hyperkalemia: (3) Chest pain: PLAN: Plan Impression/Plan: The patient is a 48-year-old woman with past history of ESRD, type 1 diabetes mellitus, hypertension, CAD, COPD, hypothyroidism, and hyperlipidemia. The patient presents to the hospital on 10/11/2023 with 1 day history of chest pain. The patient has had intermittent chest pain since August 2023. During evaluation in ED, the patient was also found to have hyperkalemia which was treated medically. Nephrology is following for ESRD and dialysis management. ESRD. The patient normally dialyzes at [facility] on Nx[facility] 5 days/week. Dialysis today, see orders, fluid removal 3 to 4 L. Hyperkalemia. K high again today, dialysis on 2K bath today
[2023-10-12] MEDS: Labetalol (Prefilled) 20 MG/4 ML 10 MG IV ×2 (14:04→18:07)
--- NOTE | 2023-10-12 15:46 | CHAPLAIN ---
Type of Pastoral Visit _x__ Initial Visit ___ Follow-up Visit ___ On-call Visit ___ General Patient Visit ___ Spiritual Assessment ___ Family Conference ___ Bereavement ___ Rapid Response ___ Code Blue ___ Other (describe below) Pastoral Care Referral From _x__ Patient ___ Family ___ Nurse ___ Physician ___ Front Desk Representative ___ Manager Of Compensation ___ Other (describe below) Sacrament/Intervention _x__ Active listening ___ Anointing ___ Catholic ___ Bereavement ___ Communion _x__ [place] exploration ___ _x__ Life review _x__ Prayer ___ Reconciliation ___ Sacrament of Sick _x__ Supportive presence ___ Wedding ___ Other (describe below) Pastoral Comments RN was given physical care to patient but was soon completed; pt admits that she is feeling very sick and then explains a long list of her health problems; pt is eager to have spiritual care support and asks for prayer and for a Bible; pt states that her motivation to getting well is her grandson and another grandson to be born within a week; pt also discloses that she was engaged to a old beau from school yesterday; pt expresses gratitude for support and for ongoing prayers
--- NOTE | 2023-10-12 16:34 | CASEMGMT ---
Discharge Planning Updates sent to [facility] via [facility]. Precert to be submitted. Veronica Bustamante, Discharge Planning Asst.
[2023-10-12] MEDS: Insulin Lispro 100 UNIT/ML INSULN.PEN SC ×2 (16:52→23:37)
[2023-10-12 18:59] LABS: Bedside Glucose 424 mg/dL (74-106)
[2023-10-12 20:49] LABS: Bedside Glucose 41 mg/dL (74-106)
[2023-10-12 20:49] LABS: Bedside Glucose 204 mg/dL (74-106)
[2023-10-12] MEDS: busPIRone 5 MG Tablet 10 MG PO (22:29)
[2023-10-12] MEDS: Atorvastatin Calcium 20 MG Tablet PO (22:31)
[2023-10-12 22:57] LABS: Bedside Glucose > 500 mg/dL (74-106)
--- NOTE | 2023-10-12 23:02 | EKG12_ITS ---
Test Reason : Blood Pressure : / mmHG Vent. Rate : 070 BPM Atrial Rate : 070 BPM P-R Int : 140 ms QRS Dur : 082 ms QT Int : 430 ms P-R-T Axes : 037 082 081 degrees QTc Int : 464 ms Normal sinus rhythm Anteroseptal infarct , age undetermined Abnormal ECG When compared with ECG of 12-OCT-2023 23:18, MANUAL COMPARISON REQUIRED, DATA IS UNCONFIRMED Confirmed by SHANDRA PRICE, RAJINDER ([id number]), rewrite editor JENNIFER SHERMAN ([id number]) on 10/19/2023 6:46:48 AM Referred By: Confirmed By:NADIA DEVI MD
--- NOTE | 2023-10-12 23:18 | EKG12_ITS ---
Test Reason : CP Blood Pressure : / mmHG Vent. Rate : 073 BPM Atrial Rate : 073 BPM P-R Int : 184 ms QRS Dur : 096 ms QT Int : 426 ms P-R-T Axes : 057 217 054 degrees QTc Int : 469 ms Normal sinus rhythm Right superior axis deviation Pulmonary disease pattern Septal infarct (cited on or before 14-SEP-2023) Abnormal ECG When compared with ECG of 11-OCT-2023 17:40, Questionable change in QRS axis Confirmed by SHANDRA PRICE, RAJINDER ([id number]), manager editorial SP MUNSON ([id number]) on 10/19/2023 2:13:14 PM Referred By: SUBHA Confirmed By:NADIA DEVI MD
[2023-10-12 23:25] LABS: Glucose 606 mg/dL (74-106)
--- NOTE | 2023-10-12 23:31 | NURSING ---
pts primary rn aware of lab glucose result of 606 at this time.
[2023-10-12] MEDS: LORazepam 2 MG/ML Syringe 0.5 MG IV (23:40)
[2023-10-12] MEDS: Insulin Glargine-YFGN 100 UNIT/ML Pen 8 UNIT SC (23:51)
[2023-10-13] VITALS (12 sets, daily range): BP systolic 104–232; BP diastolic 49–56; PULSE 57–71; RESP 14–18; TEMP 36.6–36.8; O2SAT 94–100; BMI 23.1; BMI 21.7
--- NOTE | 2023-10-13 00:29 | NURSING ---
Patient woke up in pain rated 10/10. Administered pain medicine po; patient still tearful/crying stated her shoulder hurts now and her entire body is hurting rating the pain 10/10, said she slept wrong in the chair. Blood sugar reading 524. Patient insisted giving her insulin right now, informed her I needed to notify doctor. Doctor notified by RN and new orders in system by RN. BP stable at this time. Will continue to monitor patient throughout the night.
[2023-10-13] MEDS: Heparin Injection (Vial) 5,000 UNIT/ML VIAL 5000 UNIT SC (00:40)
[2023-10-13 00:47] LABS: Troponin-I HS 21 pg/mL (3.0-54.0)
[2023-10-13 02:03] LABS: Bedside Glucose 461 mg/dL (74-106)
[2023-10-13 02:10] LABS: Troponin-I HS 22 pg/mL (3.0-54.0)
[2023-10-13 02:39] LABS: Glucose 511 mg/dL (74-106)
[2023-10-13] MEDS: Insulin Lispro 100 UNIT/ML INSULN.PEN 12 UNIT SC (03:22)
[2023-10-13] MEDS: Levothyroxine 150 MCG Tablet PO (06:58)
[2023-10-13] MEDS: Ipratropium/Albuterol Sulfate 3 ML AMPUL.NEB INHALATION (07:07)
[2023-10-13 07:54] LABS: Absolute Neutrophil Count 3.7 X10^3/uL (2.0-7.7); Basophil# 0.06 X10^3/uL; Eosinophil# 0.28 X10^3/uL; Eosinophils% 4.8 % (0-5); Hematocrit 35.2 % (37-47); Lymphocyte % 15.5 % (19-41); Mean Corp Hgb Conc 31.3 g/dL (32-36); Mean Corpuscular Hgb 30.2 pg (27.0-32.0); Mean Corpuscular Volume 96.7 fL (81-99); Mean Platelet Vol. 9.7 fl (6.2-12.0); Monocyte# 0.88 X10^3/uL; Monocyte% 15.1 % (0-10); NRBC Flagged by Analyzer 0 % (0-5); Neutrophil # 3.68 X10^3/uL (2.7-7.7); Neutrophil % 63.3 % (47-70); Platelet Count 219 K/mm3 (150-450); RBC Distribution Width CV 15.8 % (11.6-14.6); RBC Distribution Width SD 56.4 fl (35.1-43.9); Red Blood Count 3.64 M/mm3 (4.2-5.4); White Blood Count 5.8 K/mm3 (4.4-11.0)
[2023-10-13 07:59] LABS: Bedside Glucose 121 mg/dL (74-106)
[2023-10-13] MEDS: 0.9% Normal Saline 1,000 ML IV.SOLN. 1000 ML OPERA.SITE (07:59)
[2023-10-13] MEDS: PureFlow B 2K Dialysis Soln 1 BAG 6 BAG PF (07:59)
[2023-10-13 08:02] LABS: Anion Gap 8 (5-15); BUN 69 mg/dL (7-18); BUN/Creat Ratio 13.5 RATIO (10-20); Calcium,Total 8.6 mg/dL (8.5-10.1); Chloride 95 mmol/L (98-107); Creatinine, Serum 5.11 mg/dL (0.55-1.02); EST Glomerular Filtration Rate 10 mL/min (>60); Est Glom Filt Rate - Afr Amer 12 mL/min (>60); Estimated Creatinine Clearance 11.85 ml/min; Glucose 165 mg/dL (74-106); Potassium 5.9 mmol/L (3.5-5.1); Sodium Level 129 mmol/L (136-145); Troponin-I HS 18 pg/mL (3.0-54.0)
--- NOTE | 2023-10-13 08:13 | PN.HOSP_ITS ---
Reason for Visit Reason for Visit: No new events. Objective Data Objective Data Vital Signs: Vital Signs Temp Pulse Resp BP Pulse Ox O2 Del Method O2 Flow Rate 36.8 C 60 16 104/52 L 98 Nasal Cannula 2 10/13/23 03:00 10/13/23 07:54 10/13/23 07:54 10/13/23 07:54 10/13/23 07:30 10/13/23 07:54 10/13/23 07:54 Oxygen Flow Rate (L/min) 2 Oxygen Delivery Method Nasal Cannula Weight: 62.8 kg Body Mass Index (BMI) 23.1 Intake & Output: Intake and Output for Last 24 Hours 10/11/23 10/12/23 10/13/23 23:59 23:59 23:59 Intake Total 900 / 900 2416 / 2536 179.25 / 179.25 Output Total 3400 / 3400 Balance 900 / 900 -984 / -864 179.25 / 179.25 Lab / Micro Data 10/13/23 06:40 10/13/23 06:40 Labs: Laboratory Results - last 24 hr 10/11/23 18:34: POC Glucose 41 L* 10/11/23 18:47: POC Glucose 204 H 10/12/23 11:48: POC Glucose 170 H 10/12/23 16:22: POC Glucose 424 H 10/12/23 22:37: POC Glucose > 500 H* 10/12/23 22:55: Glucose 606 H* 10/13/23 00:13: Troponin I High Sens 10/13/23 01:42: POC Glucose 461 H* 10/13/23 01:43: Glucose 511 H*, Troponin I High Sens 10/13/23 06:40: WBC 5.8, RBC 3.64 L, Hgb 11.0 L, Hct 35.2 L, MCV 96.7, MCH 30.2, MCHC 31.3 L, RDW Std Deviation 56.4 H, RDW Coeff of Keysha 15.8 H, Plt Count 219, MPV 9.7, Immature Gran % (Auto) 0.300, Neut % (Auto) 63.3, Lymph % (Auto) 15.5 L , [place] % (Auto) 15.1 H, Eos % (Auto) 4.8, Baso % (Auto) 1.0, Absolute Neuts (auto) 3.7, Absolute Lymphs (auto) 0.90, Nucleated RBC % 0, Sodium 129 L, Potassium 5.9 H, Chloride 95 L, Carbon Dioxide 26.0, Anion Gap 8, BUN 69 H, Creatinine 5.11 H, Estim Creat Clear Calc 11.85, Est GFR (MDRD) Af Amer 12 L, Est GFR (MDRD) Non-Af 10 L, BUN/Creatinine Ratio 13.5, Glucose 165 H, Calcium 8.6, Troponin I High Sens 18 10/13/23 07:39: POC Glucose 121 H Radiography Diagnostic Testing: Radiology Impression Echocardiogram 10/11/23 17:13 Interpretation Summary The estimated ejection fraction is 55-60 %. No evidence for diastolic dysfunction. Trivial mitral valve insufficiency. Ordering Physician: Shira Krueger Referring Physician: LARS IBANEZ Performed By: Poornima Cohen RDCS Physical Exam Const alert and no apparent distress HEENT head/scalp atraumatic and moist oral mucous membranes Resp normal respiratory effort, no retractions, no use of accessory muscles and clear to auscultation bilaterally Cardio regular rate, regular rhythm, S1 normal heart sound and S2 normal heart sound GI normal to inspection, nondistended, normoactive bowel sounds, soft to palpation, non-tender and non-distended Assessment & Plan Assessment/Plan (1) Hyperkalemia: (2) Hypoglycemia: (3) Stage 5 chronic kidney disease: (4) Hypothyroidism: (5) Anxiety: (6) Type 1 diabetes mellitus: (7) Chest pain: PLAN: Plan Hyperkalemia * Admission Potassium 6.2 * Likely secondary to not completing dialysis Thursday * Nephrology consult * Kayexalate, insulin and dextrose, albuterol given in ED * EKG NSR, HR 61 w/ qtc 457, no peaking of t-waves * DC losartan given hyperkalemia Hypoglycemia * Type 1 diabetes mellitus w/ hypoglycemia on arrival * Glc 46 in ED w/ repeat in 20's, pt given dextrose pushes w/ improvement to 200's * Glucose checks and sliding scale insulin * Hold scheduled short acting and will continue long acting at much lower dose with hold parameters * restart glargine, but at lower dose. Hypertensive urgency * Improved * Likely has hypertensive headache as well. * Continue carvedilol 25 BID, clonidine 0.3 TID, nifedipine 60. Decreased LOC * Ammonia 42. However, today the patient is much more alert. Hold off on lactulose. * ABG unremarkable * Hold hydroxyzine * Recent TSH 5.16 * Resolved. I suspect this may have been intentional on the patient's behalf. Chest pain * Sharp and reproducible, sounds more chest wall in nature than cardiac but does have risk factors * EKG non specific-Trop WNL * Had CTA last month when presented similarly which was negative * Will obtain echo to assess EF and wall motion * Aspirin, Statin, Lipid panel in AM * Troponin series negative. Non-cardiac. Chronic conditions: * ESRD on HD-Consult nephrology-Renal diet-Daily weights, I's and O's * History of coronary artery disease-Aspirin, statin, ljup-asxijfs-Tf above * Chronic hyponatremia-Appears to be at baseline-Continue present management * hx CHF-Listed on history but unclear and pt not particularly cooperative with exam-echo ordered-Daily weights, I's and O's * Anxiety and depression-Continue home fluoxetine, BuSpar-Hold home hydroxyzine d/t sedation-Supportive care * Hypothyroidism-Continue Synthroid * History of COPD-Continue home inhalers-i/s * Hypertension-Patient on multiple home medications-Presently vitally stable, continue Coreg and clonidine DVT ppx: Heparin subcu DC back to SNF.
--- NOTE | 2023-10-13 09:49 | CASEMGMT ---
Per physician patient is ready for discharge. SW asked [facility] to start patient's pre-cert. Plan: d/c back to [facility] pending insurance approval. Mary MCKENZIE
--- NOTE | 2023-10-13 10:18 | CASEMGMT ---
Physician said patient is ready for discharge. SW checked with SW and patient's previous authorization is good until Wed at midnight. SW let physician know this information. Mary MCKENZIE
[2023-10-13 11:05] LABS: Bedside Glucose 137 mg/dL (74-106)
--- NOTE | 2023-10-13 11:14 | TREXTCAR_ITS ---
Diet Diet Order/Speech Therapy: 10/11/23 17:14 Diet: Renal - General Food consistency:: Regular Liquid Consistency:: Regular/Thin Routine Orders/Code Status Routine Lab Work: CBC (weekly) and BMP (weekly) Code Status: Full Code Therapies Weight Bearing: Full weight bearing Physical Therapy: Eval and Treat Occupational Therapy: Eval and Treat Problem/Diagnosis (1) Hyperkalemia: Status: Acute Code(s): E87.5 - Hyperkalemia (2) Hypoglycemia: Status: Acute Code(s): E16.2 - Hypoglycemia, unspecified (3) Stage 5 chronic kidney disease: Status: Chronic Code(s): N18.5 - Chronic kidney disease, stage 5 (4) Hypothyroidism: Status: Acute Code(s): E03.9 - Hypothyroidism, unspecified (5) Anxiety: Status: Acute Code(s): F41.9 - Anxiety disorder, unspecified (6) Type 1 diabetes mellitus: Status: Acute Code(s): E10.9 - Type 1 diabetes mellitus without complications (7) Chest pain: Status: Acute Code(s): R07.9 - Chest pain, unspecified Plan Hyperkalemia * Admission Potassium 6.2 * Likely secondary to not completing dialysis Thursday * Nephrology consult * Kayexalate, insulin and dextrose, albuterol given in ED * EKG NSR, HR 61 w/ qtc 457, no peaking of t-waves * DC losartan given hyperkalemia Hypoglycemia * Type 1 diabetes mellitus w/ hypoglycemia on arrival * Glc 46 in ED w/ repeat in 20's, pt given dextrose pushes w/ improvement to 200's * Glucose checks and sliding scale insulin * Hold scheduled short acting and will continue long acting at much lower dose with hold parameters * restart glargine, but at lower dose. Hypertensive urgency * Improved * Likely has hypertensive headache as well. * Continue carvedilol 25 BID, clonidine 0.3 TID, nifedipine 60. Decreased LOC * Ammonia 42. However, today the patient is much more alert. Hold off on lactulose. * ABG unremarkable * Hold hydroxyzine * Recent TSH 5.16 * Resolved. I suspect this may have been intentional on the patient's behalf. Chest pain * Sharp and reproducible, sounds more chest wall in nature than cardiac but does have risk factors * EKG non specific-Trop WNL * Had CTA last month when presented similarly which was negative * Will obtain echo to assess EF and wall motion * Aspirin, Statin, Lipid panel in AM * Troponin series negative. Non-cardiac. Chronic conditions: * ESRD on HD-Consult nephrology-Renal diet-Daily weights, I's and O's * History of coronary artery disease-Aspirin, statin, hbfa-rphiava-Ow above * Chronic hyponatremia-Appears to be at baseline-Continue present management * hx CHF-Listed on history but unclear and pt not particularly cooperative with exam-echo ordered-Daily weights, I's and O's * Anxiety and depression-Continue home fluoxetine, BuSpar-Hold home hydroxyzine d/t sedation-Supportive care * Hypothyroidism-Continue Synthroid * History of COPD-Continue home inhalers-i/s * Hypertension-Patient on multiple home medications-Presently vitally stable, continue Coreg and clonidine DVT ppx: Heparin subcu DC back to SNF. Allergies/Procedures Done in Hospital Allergies Sulfa (Sulfonamide Antibiotics) Allergy (Verified 10/11/23 14:13) PT UNSURE OF REACTION Procedures: Dialysis Type of Care/Length of Stay Estimated LOS: Convalescent Care Less Than 30 days Type of Care Needed: Skilled Rehab Potential: Fair Prognosis: Good Additional Orders/Day of Discharge Day of Discharge: 10/13/23 Dietary and Speech Recommendations Dietitian Recommendations/Changes: continue renal-general diet as tolerated w/ 120mL glucerna TID for additional nutrition if consumed Discharge Plan Admission Admit Date/Time: 10/11/23 16:07 Primary Reason for Your Visit: hyperkalemia Attending Provider: Alberto Jackson Primary Care Provider: Renetta Schmitt Consulting Providers: Promise Arboleda; Shira Krueger; Claire Sandhu Discharge Orders/Prescriptions Prescriptions: New insulin lispro [Humalog KwikPen Insulin] 100 unit/mL Insulin Pen See Protocol subcut ACHS Qty: 0 0RF Protocol: 1. Sliding Scale Insulin Low Dosing Condition: 150-224 mg/dl = 1 unit Condition: 225-299 mg/dl = 2 units Condition: 300-374 mg/dl = 3 units Condition: 375-499 mg/dl = 4 units Condition: Greater than 449 call physician Protocol Text: - Use for Total Daily Dose of Insulin 15-27 units - Thin, elderly, renal patients LOW DOSING ALGORITHM Glucerna 1.2 Balaji 0.06-1.2 gram-kcal/mL Liquid 120 ml PO TIDCM Qty: 0 0RF Continued acetaminophen 650 mg suppository 650 mg ND Q4H PRN (Reason: fever or pain) acetaminophen 325 mg capsule 325 mg PO Q4H PRN (Reason: fever or pain) albuterol sulfate 2.5 mg /3 mL (0.083 %) solution for nebulization 2.5 mg inhalation Q4H PRN (Reason: shortness of breath or wheezing) aluminum hydrox-magnesium carb 254-237.5 mg/5 mL suspension 30 ml PO Q4H PRN (Reason: GI DISTRESS) aspirin 81 mg tablet,delayed release (DR/EC) 81 mg PO DAILY Patient Comments: TAKE 1 TABLET BY MOUTH EVERY DAY atorvastatin 20 mg tablet 20 mg PO QHS bisacodyl 10 mg suppository 10 mg ND DAILY PRN (Reason: constipation) buspirone 5 mg tablet 5 mg PO BID calcium carbonate [Calcium 500] 500 mg calcium (1,250 mg) tablet,chewable 1,000 mg PO Q12H PRN (Reason: abdominal discomfort) carvedilol 25 mg tablet 25 mg PO BID Rx Instructions: must administer with a meal/food clonidine HCl 0.3 mg tablet 0.3 mg PO TID diclofenac sodium [Aleve (diclofenac)] 1 % gel 1 ea topical Q6H PRN (Reason: KNEE PAIN) ergocalciferol (vitamin D2) [Vitamin D2] 1,250 mcg (50,000 unit) capsule 1,250 mcg PO QWEEK Rx Instructions: THURSDAY famotidine [Acid Controller] 10 mg tablet 10 mg PO .COMPLEX Rx Instructions: 10 mg orally QOD; Enema 19-7 gram/118 mL enema 118 ml ND DAILY PRN (Reason: constipation) fluoxetine 10 mg capsule 10 mg PO DAILY glucagon HCl [Glucagon (HCl) Emergency Kit] 1 mg recon soln 1 mg IM Q20M PRN (Reason: hypoglycemia) Rx Instructions: until target blood sugar attained dextrose [Gluco Burst] 40 % gel 1 ea PO PRN Rx Instructions: until symptoms of low blood sugar are controlled guaifenesin [Adult Tussin Chest Congestion] 100 mg/5 mL liquid 200 mg PO Q4H PRN (Reason: congestion) hydralazine 100 mg tablet 100 mg PO TID hydroxyzine HCl 50 mg tablet 50 mg PO Q6H ipratropium-albuterol 0.5 mg-3 mg(2.5 mg base)/3 mL solution for nebulization 3 ml continuous nebulization Q8H levothyroxine [Euthyrox] 150 mcg tablet 150 mcg PO DAILY lidocaine 3.75 % cream 1 applic topical QHS melatonin 3 mg capsule 3 mg PO QHS magnesium hydroxide [Milk of Magnesia] 400 mg/5 mL suspension 30 ml PO DAILY PRN (Reason: constipation) nifedipine 60 mg tablet extended release 24hr 60 mg PO DAILY polyethylene glycol 3350 [ClearLax] 17 gram/dose powder 17 g PO DAILY Dialyvite 800 0.8 mg tablet 1 tab PO DAILY sennosides-docusate sodium [2-in-1 Laxative] 8.6-50 mg tablet 1 tab-cap PO QHS torsemide 10 mg tablet 5 mg PO DAILY buspirone 10 mg tablet 10 mg PO QHS calcitriol 0.25 mcg capsule 0.25 mcg PO MOWEFR Culturelle 10 billion cell capsule 1 cap PO BID midodrine 5 mg tablet 5 mg PO DAILY Rx Instructions: do not give last dose of day after 6PM or within 4 hrs of bedtime calcium acetate(phosphat bind) 667 mg tablet 667 mg PO TIDCM Changed insulin lispro [Humalog KwikPen Insulin] 100 unit/mL insulin pen 3 unit subcut TIDCM Qty: 15 0RF insulin glargine [Lantus Solostar U-100 Insulin] 100 unit/mL (3 mL) insulin pen 8 unit subcut DAILY Qty: 15 0RF Discontinued insulin lispro [Humalog U-100 Insulin] 100 unit/mL solution 12 unit subcut DAILY Rx Instructions: IN THE EVENING FOR BLOOD SUGAR <120 losartan [Cozaar] 100 mg tablet 100 mg PO DAILY metoclopramide HCl [Reglan] 5 mg tablet 5 mg PO DAILY Rx Instructions: WITH MEALS tramadol 50 mg tablet 25 mg PO BID Referrals / Follow Up: Renetta Schmitt MD [Primary Care Provider] - Disposition Disposition (needs filled in before D/C Order can be placed): [facility] Facility
--- NOTE | 2023-10-13 11:25 | DS.PCM_ITS ---
Providers Date of Admission: 10/11/23 Primary Care Physician: Dr. Renetta Schmitt MD Consultations 10/11/23 17:13 Consult: Nephrology Routine Consulting Provider: Promise Arboleda Reason for Consult: hyperkalemia, esrd on hd EMERGENT Consult: No MD Notified: Yes Date Notified: 10/11/23 Time Notified: 16:20 Method of Notification: Verbal Reason For Visit: HYPERKALEMIA, HYPOGLYCEMIA Diagnosis Discharge Diagnosis (1) Hyperkalemia: Status: Acute Code(s): E87.5 - Hyperkalemia (2) Hypoglycemia: Status: Acute Code(s): E16.2 - Hypoglycemia, unspecified (3) Stage 5 chronic kidney disease: Status: Chronic Code(s): N18.5 - Chronic kidney disease, stage 5 (4) Hypothyroidism: Status: Acute Code(s): E03.9 - Hypothyroidism, unspecified (5) Anxiety: Status: Acute Code(s): F41.9 - Anxiety disorder, unspecified (6) Type 1 diabetes mellitus: Status: Acute Code(s): E10.9 - Type 1 diabetes mellitus without complications (7) Chest pain: Status: Acute Code(s): R07.9 - Chest pain, unspecified Plan Hyperkalemia * Admission Potassium 6.2 * Likely secondary to not completing dialysis Thursday * Nephrology consult * Kayexalate, insulin and dextrose, albuterol given in ED * EKG NSR, HR 61 w/ qtc 457, no peaking of t-waves * DC losartan given hyperkalemia Hypoglycemia * Type 1 diabetes mellitus w/ hypoglycemia on arrival * Glc 46 in ED w/ repeat in 20's, pt given dextrose pushes w/ improvement to 200's * Glucose checks and sliding scale insulin * Hold scheduled short acting and will continue long acting at much lower dose with hold parameters * restart glargine, but at lower dose. Hypertensive urgency * Improved * Likely has hypertensive headache as well. * Continue carvedilol 25 BID, clonidine 0.3 TID, nifedipine 60. Decreased LOC * Ammonia 42. However, today the patient is much more alert. Hold off on lactulose. * ABG unremarkable * Hold hydroxyzine * Recent TSH 5.16 * Resolved. I suspect this may have been intentional on the patient's behalf. Chest pain * Sharp and reproducible, sounds more chest wall in nature than cardiac but does have risk factors * EKG non specific-Trop WNL * Had CTA last month when presented similarly which was negative * Will obtain echo to assess EF and wall motion * Aspirin, Statin, Lipid panel in AM * Troponin series negative. Non-cardiac. Chronic conditions: * ESRD on HD-Consult nephrology-Renal diet-Daily weights, I's and O's * History of coronary artery disease-Aspirin, statin, [id number]-Nb above * Chronic hyponatremia-Appears to be at baseline-Continue present management * hx CHF-Listed on history but unclear and pt not particularly cooperative with exam-echo ordered-Daily weights, I's and O's * Anxiety and depression-Continue home fluoxetine, BuSpar-Hold home hydroxyzine d/t sedation-Supportive care * Hypothyroidism-Continue Synthroid * History of COPD-Continue home inhalers-i/s * Hypertension-Patient on multiple home medications-Presently vitally stable, continue Coreg and clonidine DVT ppx: Heparin subcu DC back to [facility]. Medications at Discharge Home Medications acetaminophen 325 mg capsule 325 mg PO Q4H PRN fever or pain 09/14/23 acetaminophen 650 mg rectal suppository 650 mg [place] Q4H PRN fever or pain 09/14/23 albuterol sulfate 2.5 mg/3 mL (0.083 %) solution for nebulization 2.5 mg inhalation Q4H PRN shortness of breath or wheezing 09/14/23 aluminum hydrox-magnesium carb 254 mg-237.5 mg/5 mL oral suspension 30 ml PO Q4H PRN GI DISTRESS 09/14/23 aspirin 81 mg tablet,delayed release 81 mg PO DAILY 09/14/23 atorvastatin 20 mg tablet 20 mg PO QHS 09/14/23 bisacodyl 10 mg rectal suppository 10 mg [place] DAILY PRN constipation 09/14/23 buspirone 5 mg tablet 5 mg PO BID 09/14/23 calcium carbonate 500 mg calcium (1,250 mg) chewable tablet (Calcium 500) 1,000 mg PO Q12H PRN abdominal discomfort 09/14/23 carvedilol 25 mg tablet 25 mg PO BID 09/14/23 clonidine HCl 0.3 mg tablet 0.3 mg PO TID 09/14/23 dextrose 40 % oral gel (Gluco Burst) 1 ea PO PRN 09/14/23 diclofenac sodium 1 % topical gel (Aleve (diclofenac)) 1 ea topical Q6H PRN KNEE PAIN 09/14/23 ergocalciferol (vitamin D2) 1,250 mcg (50,000 unit) capsule (Vitamin D2) 1,250 mcg PO QWEEK 09/14/23 famotidine 10 mg tablet (Acid Controller) 10 mg PO .COMPLEX 09/14/23 fluoxetine 10 mg capsule 10 mg PO DAILY 09/14/23 glucagon HCl 1 mg solution for injection (Glucagon (HCl) Emergency Kit) 1 mg IM Q20M PRN hypoglycemia 09/14/23 guaifenesin 100 mg/5 mL oral liquid (Adult Tussin Chest Congestion) 200 mg PO Q4H PRN congestion 09/14/23 hydralazine 100 mg tablet 100 mg PO TID 09/14/23 hydroxyzine HCl 50 mg tablet 50 mg PO Q6H 09/14/23 ipratropium 0.5 mg-albuterol 3 mg (2.5 mg base)/3 mL nebulization soln 3 ml continuous nebulization Q8H 09/14/23 levothyroxine 150 mcg tablet (Euthyrox) 150 mcg PO DAILY 09/14/23 lidocaine 3.75 % topical cream 1 applic topical QHS 09/14/23 magnesium hydroxide 400 mg/5 mL oral suspension (Milk of Magnesia) 30 ml PO DAILY PRN constipation 09/14/23 melatonin 3 mg capsule 3 mg PO QHS 09/14/23 nifedipine 60 mg tablet,extended release 24 hr 60 mg PO DAILY 09/14/23 polyethylene glycol 3350 17 gram/dose oral powder (ClearLax) 17 g PO DAILY 09/14/23 sennosides 8.6 mg-docusate sodium 50 mg tablet (2-in-1 Laxative) 1 tab-cap PO QHS 09/14/23 sodium phosphates 19 gram-7 gram/118 mL enema (Enema) 118 ml [place] DAILY PRN constipation 09/14/23 torsemide 10 mg tablet 5 mg PO DAILY 09/14/23 vitamin B complex-vitamin C-folic acid 0.8 mg tablet (Dialyvite 800) 1 tab PO DAILY 09/14/23 Lactobacillus rhamnosus GG 10 billion cell capsule (Culturelle) 1 cap PO BID 10/11/23 buspirone 10 mg tablet 10 mg PO QHS 10/11/23 calcitriol 0.25 mcg capsule 0.25 mcg PO MOWEFR 10/11/23 calcium acetate(phosphat bind) 667 mg tablet 667 mg PO TIDCM phos binder 10/11 midodrine 5 mg tablet 5 mg PO DAILY 10/11/23 insulin glargine 100 unit/mL (3 mL) subcutaneous pen (Lantus Solostar U-100 Insulin) 8 unit (0.08 mL) subcut DAILY #15 mL 10/13/23 insulin lispro 100 unit/mL subcutaneous pen (Humalog KwikPen (U-100) Insulin) 3 unit (0.03 mL) subcut TIDCM #15 mL 10/13/23 insulin lispro 100 unit/mL subcutaneous pen (Humalog KwikPen (U-100) Insulin) See Protocol subcut ACHS #0 mL 10/13/23 nutrition tx glu intol,lac-free,soy-fiber 0.06 gram-1.2 kcal/mL liquid (Glucerna 1.2 Balaji) 120 ml PO TIDCM #0 mL 10/13/23 Hospital Course Operations None Procedures Dialysis Summary of Care Provided Minutes Spent on Discharge: 35 Hospital Course: Patient presented with chest pain. When she arrived, patient was noted to be hyperkalemic with a potassium of 6.2, hypoglycemic with a glucose of 28. For the hyperkalemia, patient received Kayexalate, insulin, dextrose and albuterol. Patient had been previously declining dialysis that was certainly a component of her hyperkalemia but also will be discontinuing her losartan as that may be contributing as well. Patient's potassium did improve with dialysis. Patient was profoundly hypertensive during her course in the hospital and with systolic into the 200s. Patient did improved with dialysis with removal of a 3 and half liters on 2 consecutive days. Patient's hypoglycemia improved. Patient is a type I diabetic so her insulin regimen was decreased. Her scheduled insulin was held with her prandial insulin but her glargine was decreased from 15 down to 8. Blood sugars have remained stable. Patient will continue with 8 units of glargine daily +3 units of prandial insulin with meals. Patient did have some decreased level consciousness. Was not any definitive etiology but it seemed to be more intentional on the patient's part. No additional workup is necessary at this time. Patient will discharge back to [facility] in stable condition. Weight / BMI Weight Weight: 62.8 kg Body Mass Index (BMI) 23.1 ABG / Lab / Microbiology Data 10/13/23 06:40 10/13/23 06:40 Laboratory: Laboratory Results - last 24 hr 10/11/23 18:34: POC Glucose 41 L* 10/11/23 18:47: POC Glucose 204 H 10/12/23 11:48: POC Glucose 170 H 10/12/23 16:22: POC Glucose 424 H 10/12/23 22:37: POC Glucose > 500 H* 10/12/23 22:55: Glucose 606 H* 10/13/23 00:13: Troponin I High Sens 21 10/13/23 01:42: POC Glucose 461 H* 10/13/23 01:43: Glucose 511 H*, Troponin I High Sens 22 10/13/23 06:40: WBC 5.8, RBC 3.64 L, Hgb 11.0 L, Hct 35.2 L, MCV 96.7, MCH 30.2, MCHC 31.3 L, RDW Std Deviation 56.4 H, RDW Coeff of Keysha 15.8 H, Plt Count 219, MPV 9.7, Immature Gran % (Auto) 0.300, Neut % (Auto) 63.3, Lymph % (Auto) 15.5 L , [place] % (Auto) 15.1 H, Eos % (Auto) 4.8, Baso % (Auto) 1.0, Absolute Neuts (auto) 3.7, Absolute Lymphs (auto) 0.90, Nucleated RBC % 0, Sodium 129 L, Potassium 5.9 H, Chloride 95 L, Carbon Dioxide 26.0, Anion Gap 8, BUN 69 H, Creatinine 5.11 H, Estim Creat Clear Calc 11.85, Est GFR (MDRD) Af Amer 12 L, Est GFR (MDRD) Non-Af 10 L, BUN/Creatinine Ratio 13.5, Glucose 165 H, Calcium 8.6, Troponin I High Sens 18 10/13/23 07:03: POC Glucose 137 H 10/13/23 07:39: POC Glucose 121 H Meaningful Use Info Meaningful Use Diagnoses (Choose all that apply): None applicable Discharge Plan Admission Admit Date/Time: 10/11/23 16:07 Primary Reason for Your Visit: hyperkalemia Attending Provider: Alberto Jackson Primary Care Provider: Renetta Schmitt Consulting Providers: Promise Arboleda; Shira Krueger; Claire Sandhu Instructions Additional Instructions / Restrictions: Continue with [facility]xStage dialysis 5 days/week. Discharge Orders/Prescriptions Prescriptions: New insulin lispro [Humalog KwikPen Insulin] 100 unit/mL Insulin Pen See Protocol subcut ACHS Qty: 0 0RF Protocol: 1. Sliding Scale Insulin Low Dosing Condition: 150-224 mg/dl = 1 unit Condition: 225-299 mg/dl = 2 units Condition: 300-374 mg/dl = 3 units Condition: 375-499 mg/dl = 4 units Condition: Greater than 449 call physician Protocol Text: - Use for Total Daily Dose of Insulin 15-27 units - Thin, elderly, renal patients LOW DOSING ALGORITHM Glucerna 1.2 Balaji 0.06-1.2 gram-kcal/mL Liquid 120 ml PO TIDCM Qty: 0 0RF Continued acetaminophen 650 mg suppository 650 mg [place] Q4H PRN (Reason: fever or pain) acetaminophen 325 mg capsule 325 mg PO Q4H PRN (Reason: fever or pain) albuterol sulfate 2.5 mg /3 mL (0.083 %) solution for nebulization 2.5 mg inhalation Q4H PRN (Reason: shortness of breath or wheezing) aluminum hydrox-magnesium carb 254-237.5 mg/5 mL suspension 30 ml PO Q4H PRN (Reason: GI DISTRESS) aspirin 81 mg tablet,delayed release (DR/EC) 81 mg PO DAILY Patient Comments: TAKE 1 TABLET BY MOUTH EVERY DAY atorvastatin 20 mg tablet 20 mg PO QHS bisacodyl 10 mg suppository 10 mg [place] DAILY PRN (Reason: constipation) buspirone 5 mg tablet 5 mg PO BID calcium carbonate [Calcium 500] 500 mg calcium (1,250 mg) tablet,chewable 1,000 mg PO Q12H PRN (Reason: abdominal discomfort) carvedilol 25 mg tablet 25 mg PO BID Rx Instructions: must administer with a meal/food clonidine HCl 0.3 mg tablet 0.3 mg PO TID diclofenac sodium [Aleve (diclofenac)] 1 % gel 1 ea topical Q6H PRN (Reason: KNEE PAIN) ergocalciferol (vitamin D2) [Vitamin D2] 1,250 mcg (50,000 unit) capsule 1,250 mcg PO QWEEK Rx Instructions: THURSDAY famotidine [Acid Controller] 10 mg tablet 10 mg PO .COMPLEX Rx Instructions: 10 mg orally QOD; Enema 19-7 gram/118 mL enema 118 ml [place] DAILY PRN (Reason: constipation) fluoxetine 10 mg capsule 10 mg PO DAILY glucagon HCl [Glucagon (HCl) Emergency Kit] 1 mg recon soln 1 mg IM Q20M PRN (Reason: hypoglycemia) Rx Instructions: until target blood sugar attained dextrose [Gluco Burst] 40 % gel 1 ea PO PRN Rx Instructions: until symptoms of low blood sugar are controlled guaifenesin [Adult Tussin Chest Congestion] 100 mg/5 mL liquid 200 mg PO Q4H PRN (Reason: congestion) hydralazine 100 mg tablet 100 mg PO TID hydroxyzine HCl 50 mg tablet 50 mg PO Q6H ipratropium-albuterol 0.5 mg-3 mg(2.5 mg base)/3 mL solution for nebulization 3 ml continuous nebulization Q8H levothyroxine [Euthyrox] 150 mcg tablet 150 mcg PO DAILY lidocaine 3.75 % cream 1 applic topical QHS melatonin 3 mg capsule 3 mg PO QHS magnesium hydroxide [Milk of Magnesia] 400 mg/5 mL suspension 30 ml PO DAILY PRN (Reason: constipation) nifedipine 60 mg tablet extended release 24hr 60 mg PO DAILY polyethylene glycol 3350 [ClearLax] 17 gram/dose powder 17 g PO DAILY Dialyvite 800 0.8 mg tablet 1 tab PO DAILY sennosides-docusate sodium [2-in-1 Laxative] 8.6-50 mg tablet 1 tab-cap PO QHS torsemide 10 mg tablet 5 mg PO DAILY buspirone 10 mg tablet 10 mg PO QHS calcitriol 0.25 mcg capsule 0.25 mcg PO MOWEFR Culturelle 10 billion cell capsule 1 cap PO BID midodrine 5 mg tablet 5 mg PO DAILY Rx Instructions: do not give last dose of day after 6PM or within 4 hrs of bedtime calcium acetate(phosphat bind) 667 mg tablet 667 mg PO TIDCM Changed insulin lispro [Humalog KwikPen Insulin] 100 unit/mL insulin pen 3 unit subcut TIDCM Qty: 15 0RF insulin glargine [Lantus Solostar U-100 Insulin] 100 unit/mL (3 mL) insulin pen 8 unit subcut DAILY Qty: 15 0RF Discontinued insulin lispro [Humalog U-100 Insulin] 100 unit/mL solution 12 unit subcut DAILY Rx Instructions: IN THE EVENING FOR BLOOD SUGAR <120 losartan [Cozaar] 100 mg tablet 100 mg PO DAILY metoclopramide HCl [Reglan] 5 mg tablet 5 mg PO DAILY Rx Instructions: WITH MEALS tramadol 50 mg tablet 25 mg PO BID Referrals / Follow Up: Renetta Schmitt MD [Primary Care Provider] - Disposition Disposition (needs filled in before D/C Order can be placed): [facility] Facility Charges/Coding Visit Charges Inpatient E&M: 20065 Disch Hosp >30min
--- NOTE | 2023-10-13 11:31 | PHA.DC_ITS ---
Pharmacy [place] Med Reconciliation Pharmacy Service has performed discharge medication reconciliation for this patient. The patient's discharge medication list was reviewed for discrepancies and discrepancies were resolved. Medications at Discharge Home Medications acetaminophen 325 mg capsule 325 mg PO Q4H PRN fever or pain 09/14/23 acetaminophen 650 mg rectal suppository 650 mg [place] Q4H PRN fever or pain 09/14/23 albuterol sulfate 2.5 mg/3 mL (0.083 %) solution for nebulization 2.5 mg inhalat ion Q4H PRN shortness of breath or wheezing 09/14/23 aluminum hydrox-magnesium carb 254 mg-237.5 mg/5 mL oral suspension 30 ml PO Q4H PRN GI DISTRESS 09/14/23 aspirin 81 mg tablet,delayed release 81 mg PO DAILY 09/14/23 atorvastatin 20 mg tablet 20 mg PO QHS 09/14/23 bisacodyl 10 mg rectal suppository 10 mg [place] DAILY PRN constipation 09/14/23 buspirone 5 mg tablet 5 mg PO BID 09/14/23 calcium carbonate 500 mg calcium (1,250 mg) chewable tablet (Calcium 500) 1,000 mg PO Q12H PRN abdominal discomfort 09/14/23 carvedilol 25 mg tablet 25 mg PO BID 09/14/23 clonidine HCl 0.3 mg tablet 0.3 mg PO TID 09/14/23 dextrose 40 % oral gel (Gluco Burst) 1 ea PO PRN 09/14/23 diclofenac sodium 1 % topical gel (Aleve (diclofenac)) 1 ea topical Q6H PRN KNEE PAIN 09/14/23 ergocalciferol (vitamin D2) 1,250 mcg (50,000 unit) capsule (Vitamin D2) 1,250 mcg PO QWEEK 09/14/23 famotidine 10 mg tablet (Acid Controller) 10 mg PO .COMPLEX 09/14/23 fluoxetine 10 mg capsule 10 mg PO DAILY 09/14/23 glucagon HCl 1 mg solution for injection (Glucagon (HCl) Emergency Kit) 1 mg IM Q20M PRN hypoglycemia 09/14/23 guaifenesin 100 mg/5 mL oral liquid (Adult Tussin Chest Congestion) 200 mg PO Q4H PRN congestion 09/14/23 hydralazine 100 mg tablet 100 mg PO TID 09/14/23 hydroxyzine HCl 50 mg tablet 50 mg PO Q6H 09/14/23 ipratropium 0.5 mg-albuterol 3 mg (2.5 mg base)/3 mL nebulization soln 3 ml continuous nebulization Q8H 09/14/23 levothyroxine 150 mcg tablet (Euthyrox) 150 mcg PO DAILY 09/14/23 lidocaine 3.75 % topical cream 1 applic topical QHS 09/14/23 magnesium hydroxide 400 mg/5 mL oral suspension (Milk of Magnesia) 30 ml PO DAILY PRN constipation 09/14/23 melatonin 3 mg capsule 3 mg PO QHS 09/14/23 nifedipine 60 mg tablet,extended release 24 hr 60 mg PO DAILY 09/14/23 polyethylene glycol 3350 17 gram/dose oral powder (ClearLax) 17 g PO DAILY 09/14/23 sennosides 8.6 mg-docusate sodium 50 mg tablet (2-in-1 Laxative) 1 tab-cap PO QHS 09/14/23 sodium phosphates 19 gram-7 gram/118 mL enema (Enema) 118 ml [place] DAILY PRN constipation 09/14/23 torsemide 10 mg tablet 5 mg PO DAILY 09/14/23 vitamin B complex-vitamin C-folic acid 0.8 mg tablet (Dialyvite 800) 1 tab PO DAILY 09/14/23 Lactobacillus rhamnosus GG 10 billion cell capsule (Culturelle) 1 cap PO BID 10/11/23 buspirone 10 mg tablet 10 mg PO QHS 10/11/23 calcitriol 0.25 mcg capsule 0.25 mcg PO MOWEFR 10/11/23 calcium acetate(phosphat bind) 667 mg tablet 667 mg PO TIDCM phos binder 10/11/23 midodrine 5 mg tablet 5 mg PO DAILY 10/11/23 insulin glargine 100 unit/mL (3 mL) subcutaneous pen (Lantus Solostar U-100 Insulin) 8 unit (0.08 mL) subcut DAILY #15 mL 10/13/23 insulin lispro 100 unit/mL subcutaneous pen (Humalog KwikPen (U-100) Insulin) 3 unit (0.03 mL) subcut TIDCM #15 mL 10/13/23 insulin lispro 100 unit/mL subcutaneous pen (Humalog KwikPen (U-100) Insulin) See Protocol subcut ACHS #0 mL 10/13/23 nutrition tx glu intol,lac-free,soy-fiber 0.06 gram-1.2 kcal/mL liquid (Glucerna 1.2 Balaji) 120 ml PO TIDCM #0 mL 10/13/23
[2023-10-13 11:38] LABS: Bedside Glucose 180 mg/dL (74-106)
--- NOTE | 2023-10-13 11:43 | CASEMGMT ---
Addendum entered by Mary Fox 10/13/23 11:53: RN notified patient that she will get picked up at 1p. Mary MCKENZIE Original Note: Patient is ready for discharge back to [facility]. SW sent orders to [facility] via [facility]. SW called [facility] and arranged for patient to get picked up at 1p. SW notified RN, charge coordinator, and CC of bead picker time. Plan: d/c back to [facility] under skilled level of care. Physicians will transport patient via wheelchair van. Mary MCKENZIE
[2023-10-13] MEDS: Furosemide 20 MG Tablet 10 MG PO (11:49)
[2023-10-13] MEDS: FLUoxetine 10 MG Capsule PO (11:50)
[2023-10-13] MEDS: Calcium Acetate 667 MG Capsule PO (11:50)
[2023-10-13] MEDS: busPIRone 5 MG Tablet PO (11:50)
[2023-10-13] MEDS: Glucerna Shake 120 ML LIQUID PO (11:51)
[2023-10-13] MEDS: NIFEdipine 60 MG Tablet PO (11:51)
[2023-10-13] MEDS: Insulin Lispro 100 UNIT/ML INSULN.PEN SC (11:51)
[2023-10-13] MEDS: Aspirin E.C. 81 MG Tablet PO (11:51)
[2023-10-13] MEDS: oxyCODONE 5 MG Tablet 2.5 MG PO (12:47)
--- NOTE | 2023-10-13 13:11 | NURSING ---
called report to [facility]
--- NOTE | 2023-10-13 16:44 | PCM.PN.REN ---
Subjective Subjective No new complaints Objective Data Objective Data Vital Signs: Vital Signs Temp Pulse Resp BP Pulse Ox O2 Del Method O2 Flow Rate 98 F 62 14 125/56 H 97 Nasal Cannula 2 10/13/23 11:08 10/13/23 11:10/13/23 11:10/13/23 11:10/13/23 11:10/13/23 11:10/13/23 11:30 Oxygen Flow Rate (L/min) 2 Oxygen Delivery Method Nasal Cannula Weight: 59.3 kg Body Mass Index (BMI) 21.7 Intake & Output: Intake and Output for Last 24 Hours 10/11/23 10/12/23 10/13/23 23:59 23:59 23:59 Intake Total 900 / 900 2416 / 2536 579.25 / 579.25 Output Total 3400 / 3400 3600 / 3600 Balance 900 / 900 -984 / -864 -3020.75 / -3020.75 Lab / Micro Data 10/13/23 06:40 10/13/23 06:40 Labs: Laboratory Results - last 24 hr 10/11/23 18:34: POC Glucose 41 L* 10/11/23 18:47: POC Glucose 204 H 10/12/23 16:22: POC Glucose 424 H 10/12/23 22:37: POC Glucose > 500 H* 10/12/23 22:55: Glucose 606 H* 10/13/23 00:13: Troponin I High Sens 10/13/23 01:42: POC Glucose 461 H* 10/13/23 01:43: Glucose 511 H*, Troponin I High Sens 10/13/23 06:40: WBC 5.8, RBC 3.64 L, Hgb 11.0 L, Hct 35.2 L, MCV 96.7, MCH 30.2, MCHC 31.3 L, RDW Std Deviation 56.4 H, RDW Coeff of Keysha 15.8 H, Plt Count 219, MPV 9.7, Immature Gran % (Auto) 0.300, Neut % (Auto) 63.3, Lymph % (Auto) 15.5 L, [place] % (Auto) 15.1 H, Eos % (Auto) 4.8, Baso % (Auto) 1.0, Absolute Neuts (auto) 3.7, Absolute Lymphs (auto) 0.90, Nucleated RBC % 0, Sodium 129 L, Potassium 5.9 H, Chloride 95 L, Carbon Dioxide 26.0, Anion Gap 8, BUN 69 H, Creatinine 5.11 H, Estim Creat Clear Calc 11.85, Est GFR (MDRD) Af Amer 12 L, Est GFR (MDRD) Non-Af 10 L, BUN/Creatinine Ratio 13.5, Glucose 165 H, Calcium 8.6, Troponin I High Sens 18 10/13/23 07:03: POC Glucose 137 H 10/13/23 07:39: POC Glucose 121 H 10/13/23 11:03: POC Glucose 180 H Physical Exam Narrative General: Somnolent, awakens to voice but difficult to keep awake. HEENT: Normocephalic, atraumatic. Mucous membrane moist without erythema. PERRLA, EOMI. Hearing is intact. Neck: Supple, no JVD. Trachea is midline. No thyromegaly or lymphadenopathy. Cardiovascular: Normal S1, S2. No rubs, murmurs, or gallops. Respiratory: Decreased breath sound at bases bilaterally. No wheezing. Abdomen: Normal bowel sounds, soft, nontender, no guarding or rebound, no organomegaly. Extremities: There is 3+ lower extremity edema. Anasarca. Musculoskeletal: Full passive range of motion, no joint swelling. Psychiatric: Depressed mood and flat affect. Skin: Warm and dry, no rash. Assessment & Plan Assessment/Plan (1) ESRD (end stage renal disease): (2) Hyperkalemia: (3) Chest pain: PLAN: Plan Impression/Plan: The patient is a 48-year-old woman with past history of ESRD, type 1 diabetes mellitus, hypertension, CAD, COPD, hypothyroidism, and hyperlipidemia. The patient presents to the hospital on 10/11/2023 with 1 day history of chest pain. The patient has had intermittent chest pain since August 2023. During evaluation in ED, the patient was also found to have hyperkalemia which was treated medically. Nephrology is following for ESRD and dialysis management. ESRD. The patient normally dialyzes at [facility] on [facility] 5 days/week. Dialysis today, see orders, fluid removal 3 to 4 L. Hyperkalemia. DC losartan Tells me that she is interested in kidney transplant evaluation. Advised to talk to transplant centers.
== END 2023-10-13 13:14 | disposition skilled nursing facility (03) | DRG 640 ==
LOC: ED 15:42 → PCU 16:06
PROVIDERS: Internal Medicine; Admitting Provider Internal Medicine; Emergency Provider Emergency Medicine; PCP Internal Medicine
DX: E87.5 Hyperkalemia (principal); N18.6 End stage renal disease; I13.2 Hypertensive heart and chronic kidney disease with heart failure and with stage 5 chronic kidney disease, or end stage renal disease; E10.649 Type 1 diabetes mellitus with hypoglycemia without coma; J44.9 Chronic obstructive pulmonary disease, unspecified; I50.9 Heart failure, unspecified; E10.22 Type 1 diabetes mellitus with diabetic chronic kidney disease; Z79.4 Long term (current) use of insulin; Z99.2 Dependence on renal dialysis; E03.9 Hypothyroidism, unspecified; E87.1 Hypo-osmolality and hyponatremia; I16.0 Hypertensive urgency; I25.10 Atherosclerotic heart disease of native coronary artery without angina pectoris; E78.5 Hyperlipidemia, unspecified; F41.8 Other specified anxiety disorders; Z87.891 Personal history of nicotine dependence; Z79.82 Long term (current) use of aspirin; Z79.899 Other long term (current) drug therapy; R07.9 Chest pain, unspecified; R41.82 Altered mental status, unspecified
CPT/HCPCS: 36415; 36600; 70450; 71045; 80048; 80053; 80076; 82140; 82803; 82947; 82962; 83735; 84100; 84484; 85025; 85610; 90937; 93005; 93306; 94640; 97162; 97166; 97530; 97535; 97802; 99285; J7030; A4216; G0257; J2405

== ENCOUNTER 2023-10-14 07:29 | Emergency (ER) | payer MEDICARE, MEDICAID, SELFPAY ==
[2023-10-14 07:29] VITALS: BP 148/76; PULSE 93; RESP 20; TEMP 36.5; O2SAT 100; O2SAT 96; BMI 24.9
--- NOTE | 2023-10-14 07:47 | ED.VIS.CHEST ---
HPI History of Present Illness Chief Complaint: Chest Pain Informant: patient Onset/Context/Timing Onset: Hours (10) Activity at onset: sudden Timing: Continuous Quality: Positive for Stabbing Location: Substernal Worsened By: Nothing Relieved By: Nothing Associated Symptoms: Positive for Dyspnea, Lightheadedness and Palpitations; Negative for Nausea, Vomiting, Diaphoresis, Cough, Fever or Acid Reflux Narrative Narrative: Patient presents with chest pain that began 10 hours prior to arrival. Patient states it began rather suddenly. Patient states it is constant. Patient states it is stabbing. Patient states it is over the substernal area. Patient states nothing makes it better nothing makes it worse. Patient admits to some shortness of breath. Patient also admits to some lightheadedness and palpitations. Patient denies any fevers or chills. Patient denies any nausea or vomiting. Patient denies any diaphoresis. CVD Risk Factors: Positive for Diabetes; Negative for Hypertension, Hypercholesterolemia, Family History 1' </=55 or Smoking PE Risk Factors: Positive for Recent Immobilization; Negative for Recent Travel/Surgery, Prior DVT or PE, Cancer or OCP + Smoking + >/=35 PFSH PFSH Medical History (Updated 10/14/23 @ 10:[address] Alberto Bran, DO) Anemia in chronic kidney disease (CKD) Anxiety Congestive heart failure Constipation Gastroparesis Hyperlipidemia Hypothyroidism Insomnia Pleural effusion Stage 5 chronic kidney disease Tobacco use Type 1 diabetes mellitus Home Medications acetaminophen 325 mg capsule 325 mg PO Q4H PRN fever or pain 09/14/23 [History Last Taken 09/10/23] acetaminophen 650 mg rectal suppository 650 mg PA Q4H PRN fever or pain 09/14/23 [History Last Taken Unknown] albuterol sulfate 2.5 mg/3 mL (0.083 %) solution for nebulization 2.5 mg inhalation Q4H PRN shortness of breath or wheezing 09/14/23 [History Last Taken 09/14/23] aluminum hydrox-magnesium carb 254 mg-237.5 mg/5 mL oral suspension 30 ml PO Q4H PRN GI DISTRESS 09/14/23 [History Last Taken 09/10/23] aspirin 81 mg tablet,delayed release 81 mg PO DAILY 09/14/23 [History Last Taken 10/14/23] atorvastatin 20 mg tablet 20 mg PO QHS 09/14/23 [History Last Taken 09/13/23] bisacodyl 10 mg rectal suppository 10 mg PA DAILY PRN constipation 09/14/23 [History Last Taken Unknown] buspirone 5 mg tablet 5 mg PO BID 09/14/23 [History Last Taken 09/14/23] calcium carbonate 500 mg calcium (1,250 mg) chewable tablet (Calcium 500) 1,000 mg PO Q12H PRN abdominal discomfort 09/14/23 [History Last Taken 09/11/23] carvedilol 25 mg tablet 25 mg PO BID 09/14/23 [History Last Taken 09/14/23] clonidine HCl 0.3 mg tablet 0.3 mg PO TID 09/14/23 [History Last Taken 09/14/23] dextrose 40 % oral gel (Gluco Burst) 1 ea PO PRN 09/14/23 [History Last Taken Unknown] diclofenac sodium 1 % topical gel (Aleve (diclofenac)) 1 ea topical Q6H PRN KNEE PAIN 09/14/23 [History Last Taken 09/11/23] ergocalciferol (vitamin D2) 1,250 mcg (50,000 unit) capsule (Vitamin D2) 1,250 mcg PO QWEEK 09/14/23 [History Last Taken 09/14/23] famotidine 10 mg tablet (Acid Controller) 10 mg PO .COMPLEX 09/14/23 [History Last Taken 09/13/23] fluoxetine 10 mg capsule 10 mg PO DAILY 09/14/23 [History Last Taken 09/14/23] glucagon HCl 1 mg solution for injection (Glucagon (HCl) Emergency Kit) 1 mg IM Q20M PRN hypoglycemia 09/14/23 [History Last Taken Unknown] guaifenesin 100 mg/5 mL oral liquid (Adult Tussin Chest Congestion) 200 mg PO Q4H PRN congestion 09/14/23 [History Last Taken Unknown] hydralazine 100 mg tablet 100 mg PO TID 09/14/23 [History Last Taken 09/14/23] hydroxyzine HCl 50 mg tablet 50 mg PO Q6H 09/14/23 [History Last Taken 09/14/23] ipratropium 0.5 mg-albuterol 3 mg (2.5 mg base)/3 mL nebulization soln 3 ml continuous nebulization Q8H 09/14/23 [History Last Taken 09/14/23] levothyroxine 150 mcg tablet (Euthyrox) 150 mcg PO DAILY 09/14/23 [History Last Taken 09/14/23] lidocaine 3.75 % topical cream 1 applic topical QHS 09/14/23 [History Last Taken 09/13/23] magnesium hydroxide 400 mg/5 mL oral suspension (Milk of Magnesia) 30 ml PO DAILY PRN constipation 09/14/23 [History Last Taken 09/10/23] melatonin 3 mg capsule 3 mg PO QHS 09/14/23 [History Last Taken 09/13/23] nifedipine 60 mg tablet,extended release 24 hr 60 mg PO DAILY 09/14/23 [History Last Taken 09/14/23] polyethylene glycol 3350 17 gram/dose oral powder (ClearLax) 17 g PO DAILY 09/14/23 [History Last Taken 09/14/23] sennosides 8.6 mg-docusate sodium 50 mg tablet (2-in-1 Laxative) 1 tab-cap PO QHS 09/14/23 [History Last Taken 09/14/23] sodium phosphates 19 gram-7 gram/118 mL enema (Enema) 118 ml PA DAILY PRN constipation 09/14/23 [History Last Taken Unknown] torsemide 10 mg tablet 5 mg PO DAILY 09/14/23 [History Last Taken Unknown] vitamin B complex-vitamin C-folic acid 0.8 mg tablet (Dialyvite 800) 1 tab PO DAILY 09/14/23 [History Last Taken 09/14/23] Lactobacillus rhamnosus GG 10 billion cell capsule (Culturelle) 1 cap PO BID 10/11/23 [History Last Taken Unknown] buspirone 10 mg tablet 10 mg PO QHS 10/11/23 [History Last Taken Unknown] calcitriol 0.25 mcg capsule 0.25 mcg PO MOWEFR 10/11/23 [History Last Taken Unknown] calcium acetate(phosphat bind) 667 mg tablet 667 mg PO TIDCM phos binder 10/11/23 [History Last Taken Unknown] midodrine 5 mg tablet 5 mg PO DAILY 10/11/23 [History Last Taken Unknown] insulin glargine 100 unit/mL (3 mL) subcutaneous pen (Lantus Solostar U-100 Insulin) 8 unit (0.08 mL) subcut DAILY #15 mL 10/13/23 [Rx Last Taken 09/14/23] insulin lispro 100 unit/mL subcutaneous pen (Humalog KwikPen (U-100) Insulin) 3 unit (0.03 mL) subcut TIDCM #15 mL 10/13/23 [Rx Last Taken 09/14/23] insulin lispro 100 unit/mL subcutaneous pen (Humalog KwikPen (U-100) Insulin) See Protocol subcut ACHS #0 mL 10/13/23 [Rx Last Taken Unknown] nutrition tx glu intol,lac-free,soy-fiber 0.06 gram-1.2 kcal/mL liquid (Glucerna 1.2 Balaji) 120 ml PO TIDCM #0 mL 10/13/23 [Rx Last Taken Unknown] Allergy/AdvReac Type Severity Reaction Status Date / Time Sulfa (Sulfonamide Allergy PT UNSURE Verified 10/14/23 07:34 Antibiotics) OF REACTION Surgical History (Updated 10/14/23 @ 08:[address] Alberto Bran DO) Hx of CABG Social History Smoking Status: Never smoker ROS ROS ED Constitutional Constitutional ED: Denies chills or fever(s) Eyes Eyes: Denies blurry vision or change in vision ENT ENT ED: Denies rhinorrhea or sore throat Cardiovascular Cardiovascular: Reports chest pain and palpitations Respiratory/Chest Respiratory/Chest: Reports cough and dyspnea Gastrointestinal Gastrointestinal: Denies nausea or vomiting Genitourinary Genitourinary ED: Denies dysuria or hematuria Musculoskeletal Musculoskeletal: Reports neck pain; Denies back pain Integumentary Denies abscess or rash Neurologic Neurologic: Reports headache(s); Denies weakness Allergic/Immunologic Allergic/Immunologic ED: Denies mouth swelling or urticaria EXAM Physical Exam Const Vital Signs: 10/14/23 07:29 10/14/23 07:36 10/14/23 08:24 Temperature 97.7 F L Temperature Source Temporal Pulse Rate 93 70 Respiratory Rate 20 H 24 H Respiratory Effort Normal Non-Labored Respiratory Pattern Tachypnea Blood Pressure 148/76 H Blood Pressure Mean 100 Pulse Ox 100 Oxygen Delivery Method Nasal Cannula Oxygen Flow Rate (L/min) 3 10/14/23 08:25 10/14/23 10:03 Temperature Temperature Source Pulse Rate 82 Respiratory Rate 16 Respiratory Effort Respiratory Pattern Blood Pressure 177/69 H Blood Pressure Mean 105 Pulse Ox 100 95 Oxygen Delivery Method Nasal Cannula Nasal Cannula Oxygen Flow Rate (L/min) 3 3 Positive well nourished and well developed General Appearance ED: well developed and NAD HEENT Reports moist mucous membranes Neck supple and no JVD Chest Wall Chest: tenderness sternum Resp normal respiratory effort and clear to auscultation bilaterally Cardio regular rate and regular rhythm GI soft to palpation and non-tender Neuro oriented x3, CN's II-XII intact bilaterally and no sensory deficits noted Sensorium / Orientation: awake and alert Motor Exam: strength 5/5 throughout Psych Mood & Affect: anxious Heart Score History: Slightly/Non-Suspicious ECG: Normal Age: >45 - <65 years Risk Factors: >/= 3 Risk Factors or History of CAD Score: 3 MDM MDM MDM Narrative Medical decision making narrative: Differential diagnosis includes cardiac dysrhythmia, cardiac ischemia, pneumonia, pneumothorax, electrolyte abnormality, COPD exacerbation, musculoskeletal pain, and anxiety. EKG will be obtained to assess for cardiac dysrhythmia and cardiac ischemia. Chest x-ray will be obtained to assess for pneumonia and pneumothorax. CBC will be obtained to assess for leukocytosis and anemia. Basic metabolic profile will be obtained to assess for electrolyte abnormality and renal function. High-sensitivity troponin will be obtained to assess for cardiac ischemia. History & Record Review Additional record(s) reviewed:: Prior inpatient record and Prior labs Lab Data Attestation: I reviewed the patient's lab results. Lab results narrative: CBC was reviewed. There is a mild anemia with a hemoglobin of 11.2 and hematocrit 34.2. This is unchanged from previous result. Basic metabolic profile was reviewed. BUN was 52 and creatinine was 4.58. Potassium was slightly elevated at 5.6. Patient is on dialysis. This is unchanged compared to previous result. High-sensitivity troponin was reviewed and was normal at 17. Labs: Laboratory Results - last 24 hr 10/14/23 07:36 WBC 5.4 RBC 3.67 L Hgb 11.2 L Hct 34.4 L MCV 93.7 MCH 30.5 MCHC 32.6 RDW Std Deviation 53.5 H RDW Coeff of Keysha 15.4 H Plt Count 246 MPV 10.2 Immature Gran % (Auto) 0.400 Neut % (Auto) 69.5 Lymph % (Auto) 13.3 L Dickson % (Auto) 12.0 H Eos % (Auto) 4.1 Baso % (Auto) 0.7 Absolute Neuts (auto) 3.8 Absolute Lymphs (auto) 0.72 L Nucleated RBC % 0 Sodium 129 L Potassium 5.6 H Chloride 95 L Carbon Dioxide 26.0 Anion Gap 8 BUN 52 H Creatinine 4.58 H Estim Creat Clear Calc 13.22 Est GFR (MDRD) Af Amer 13 L Est GFR (MDRD) Non-Af 11 L BUN/Creatinine Ratio 11.4 Glucose 192 H Calcium 9.2 Troponin I High Sens 17 Radiography Diagnostic Testing: Clinical Impression(s) from Imaging Studies Chest X-Ray 10/14/23 08:12 IMPRESSION: Unresolved/no change in bilateral pneumonia Electronically Signed: Rod Oates MD at 9:37 EST Reading Location ID and State: [facility] / [place] , Service support , Portable 1 view chest x-ray was obtained. On my independent interpretation, lung webber show bilateral infiltrates which are unchanged compared to previous. There is normal cardiac silhouette. Bony thorax is normal. There is no acute process noted. Radiologist also interpreted the x-ray and agrees. EKG Initial EKG: Attestation: I personally reviewed and interpreted this EKG as follows: Interpretation: Sinus Rhythm (70) and Non-Specific ST Changes Comments: EKG was obtained. On my independent interpretation, it showed a normal sinus rhythm with a rate of 70. PA interval, QRS interval, and QTc intervals were all normal. [place] was normal. There is poor R wave progression across the precordial leads consistent with prior anteroseptal infarct. There are no acute ST or T wave changes. Prior EKG tracings: available for review Prior: Unchanged (10/11/2023) Treatment and Re-Evaluation :: Patient was given a DuoNeb aerosol. Patient was given a dose of morphine. Patient was given aspirin by EMS so this was held. Patient was sleeping on reevaluation. When I awoke her she was still complaining of pain in her chest. Patient was given a repeat dose of morphine. Patient was instructed to follow-up with her primary care physician in 5 to 7 days. Patient was instructed to return if worse in any way. Patient understood and was agreeable with the plan. All questions were answered. Discharge Plan Triage Chief Complaint: Chest Pain ED Provider: Alberto Bran Dx/Rx/DC Orders Clinical Impression: Chest pain, ESRD (end stage renal disease), Hyperkalemia Instructions: ED Chest Pain, Uncertain Cause Prescriptions: No Action acetaminophen 650 mg suppository 650 mg PA Q4H PRN (Reason: fever or pain) acetaminophen 325 mg capsule 325 mg PO Q4H PRN (Reason: fever or pain) albuterol sulfate 2.5 mg /3 mL (0.083 %) solution for nebulization 2.5 mg inhalation Q4H PRN (Reason: shortness of breath or wheezing) aluminum hydrox-magnesium carb 254-237.5 mg/5 mL suspension 30 ml PO Q4H PRN (Reason: GI DISTRESS) aspirin 81 mg tablet,delayed release (DR/EC) 81 mg PO DAILY Patient Comments: TAKE 1 TABLET BY MOUTH EVERY DAY atorvastatin 20 mg tablet 20 mg PO QHS bisacodyl 10 mg suppository 10 mg PA DAILY PRN (Reason: constipation) buspirone 5 mg tablet 5 mg PO BID calcium carbonate [Calcium 500] 500 mg calcium (1,250 mg) tablet,chewable 1,000 mg PO Q12H PRN (Reason: abdominal discomfort) carvedilol 25 mg tablet 25 mg PO BID Rx Instructions: must administer with a meal/food clonidine HCl 0.3 mg tablet 0.3 mg PO TID diclofenac sodium [Aleve (diclofenac)] 1 % gel 1 ea topical Q6H PRN (Reason: KNEE PAIN) ergocalciferol (vitamin D2) [Vitamin D2] 1,250 mcg (50,000 unit) capsule 1,250 mcg PO QWEEK Rx Instructions: THURSDAY famotidine [Acid Controller] 10 mg tablet 10 mg PO .COMPLEX Rx Instructions: 10 mg orally QOD; Enema 19-7 gram/118 mL enema 118 ml PA DAILY PRN (Reason: constipation) fluoxetine 10 mg capsule 10 mg PO DAILY glucagon HCl [Glucagon (HCl) Emergency Kit] 1 mg recon soln 1 mg IM Q20M PRN (Reason: hypoglycemia) Rx Instructions: until target blood sugar attained dextrose [Gluco Burst] 40 % gel 1 ea PO PRN Rx Instructions: until symptoms of low blood sugar are controlled guaifenesin [Adult Tussin Chest Congestion] 100 mg/5 mL liquid 200 mg PO Q4H PRN (Reason: congestion) hydralazine 100 mg tablet 100 mg PO TID hydroxyzine HCl 50 mg tablet 50 mg PO Q6H ipratropium-albuterol 0.5 mg-3 mg(2.5 mg base)/3 mL solution for nebulization 3 ml continuous nebulization Q8H levothyroxine [Euthyrox] 150 mcg tablet 150 mcg PO DAILY lidocaine 3.75 % cream 1 applic topical QHS melatonin 3 mg capsule 3 mg PO QHS magnesium hydroxide [Milk of Magnesia] 400 mg/5 mL suspension 30 ml PO DAILY PRN (Reason: constipation) nifedipine 60 mg tablet extended release 24hr 60 mg PO DAILY polyethylene glycol 3350 [ClearLax] 17 gram/dose powder 17 g PO DAILY Dialyvite 800 0.8 mg tablet 1 tab PO DAILY sennosides-docusate sodium [2-in-1 Laxative] 8.6-50 mg tablet 1 tab-cap PO QHS torsemide 10 mg tablet 5 mg PO DAILY buspirone 10 mg tablet 10 mg PO QHS calcitriol 0.25 mcg capsule 0.25 mcg PO MOWEFR Culturelle 10 billion cell capsule 1 cap PO BID midodrine 5 mg tablet 5 mg PO DAILY Rx Instructions: do not give last dose of day after 6PM or within 4 hrs of bedtime calcium acetate(phosphat bind) 667 mg tablet 667 mg PO TIDCM insulin lispro [Humalog KwikPen Insulin] 100 unit/mL Insulin Pen See Protocol subcut ACHS Qty: 0 0RF Protocol: 1. Sliding Scale Insulin Low Dosing Condition: 150-224 mg/dl = 1 unit Condition: 225-299 mg/dl = 2 units Condition: 300-374 mg/dl = 3 units Condition: 375-499 mg/dl = 4 units Condition: Greater than 449 call physician Protocol Text: - Use for Total Daily Dose of Insulin 15-27 units - Thin, elderly, renal patients LOW DOSING ALGORITHM Glucerna 1.2 Balaji 0.06-1.2 gram-kcal/mL Liquid 120 ml PO TIDCM Qty: 0 0RF insulin lispro [Humalog KwikPen Insulin] 100 unit/mL insulin pen 3 unit subcut TIDCM Qty: 15 0RF insulin glargine [Lantus Solostar U-100 Insulin] 100 unit/mL (3 mL) insulin pen 8 unit subcut DAILY Qty: 15 0RF Primary Care Provider: Renetta Schmitt Referrals: Renetta Schmitt MD [Primary Care Provider] - 5-7 Days Disposition Disposition: Home, Self Care
--- NOTE | 2023-10-14 08:12 | RAD_ITS ---
STUDY: X-RAY CHEST REASON FOR EXAM: Female, 48 years old. CHEST PAIN TECHNIQUE: Single AP portable view of the chest. COMPARISON: October 11, 2023 FINDINGS: 1. Unresolved mild patchy consolidation of the bilateral lower lobes with small bilateral pleural effusions 2. Unresolved mild patchy infiltrates in the inferior aspect of the left upper lobe 3. Mild cardiomegaly unchanged. Stable CABG clips. 4. Stable osseous structures 5. Stable mediastinal structures There is no demonstrated abnormality of the visualized soft tissue structures of the upper abdomen. RAD/Chest 1 View (Portable) IMPRESSION: Unresolved/no change in bilateral pneumonia Electronically Signed: Rod Oates MD at 9:37 EST ,
[2023-10-14] MEDS: Ipratropium/Albuterol Sulfate 3 ML AMPUL.NEB INHALATION (08:23)
[2023-10-14 08:24] VITALS: PULSE 70; RESP 24
[2023-10-14 08:25] VITALS: O2SAT 100
[2023-10-14 08:26] LABS: Absolute Lymphocyte Count 0.72 X10^3/uL (0.83-4.51); Absolute Neutrophil Count 3.8 X10^3/uL (2.0-7.7); Basophil# 0.04 X10^3/uL; Basophil% 0.7 % (0-1); Eosinophil# 0.22 X10^3/uL; Eosinophils% 4.1 % (0-5); Hematocrit 34.4 % (37-47); Hemoglobin 11.2 g/dL (12.0-15.0); Lymphocyte # 0.72 X10^3/ul (0.83-4.51); Lymphocyte % 13.3 % (19-41); Mean Corp Hgb Conc 32.6 g/dL (32-36); Mean Corpuscular Hgb 30.5 pg (27.0-32.0); Mean Corpuscular Volume 93.7 fL (81-99); Mean Platelet Vol. 10.2 fl (6.2-12.0); Monocyte# 0.65 X10^3/uL; NRBC Flagged by Analyzer 0 % (0-5); Neutrophil # 3.76 X10^3/uL (2.7-7.7); Neutrophil % 69.5 % (47-70); Platelet Count 246 K/mm3 (150-450); RBC Distribution Width CV 15.4 % (11.6-14.6); RBC Distribution Width SD 53.5 fl (35.1-43.9); Red Blood Count 3.67 M/mm3 (4.2-5.4); White Blood Count 5.4 K/mm3 (4.4-11.0)
[2023-10-14] MEDS: Morphine 4 MG/ML Syringe IV (08:39)
[2023-10-14 08:48] LABS: Anion Gap 8 (5-15); BUN 52 mg/dL (7-18); BUN/Creat Ratio 11.4 RATIO (10-20); Calcium,Total 9.2 mg/dL (8.5-10.1); Chloride 95 mmol/L (98-107); Creatinine, Serum 4.58 mg/dL (0.55-1.02); EST Glomerular Filtration Rate 11 mL/min (>60); Est Glom Filt Rate - Afr Amer 13 mL/min (>60); Estimated Creatinine Clearance 13.22 ml/min; Glucose 192 mg/dL (74-106); Potassium 5.6 mmol/L (3.5-5.1); Sodium Level 129 mmol/L (136-145); Troponin-I HS 17 pg/mL (3.0-54.0)
--- NOTE | 2023-10-14 09:18 | ED.RN ---
THIS RN RECEIVED REPORT FROM [facility] AT 0919. PER NURSE AT [facility] PT HAS HAD CHEST PAIN AND COMPLAINTS OF GENERALIZED PAIN SINCE HER DISCHARGE THE OTHER DAY. PT IS DUE FOR DIALYSIS TODAY.
[2023-10-14 10:03] VITALS: BP 177/69; PULSE 82; RESP 16; O2SAT 95
[2023-10-14 10:18] VITALS: BP 179/58; PULSE 69; RESP 13; TEMP 36.4; O2SAT 99
[2023-10-14] MEDS: Morphine 2 MG/ML Syringe IV (10:23)
--- NOTE | 2023-10-14 10:24 | ED.RN ---
[facility]ANESSA CALLED, ETA 1 HOUR ([id number])
== END 2023-10-14 11:01 | disposition home or self-care (01) ==
PROVIDERS: Emergency Provider Emergency Medicine; PCP Internal Medicine; Visit Provider Emergency Medicine
DX: R07.9 Chest pain, unspecified (principal); E10.22 Type 1 diabetes mellitus with diabetic chronic kidney disease; N18.6 End stage renal disease; E87.5 Hyperkalemia; E03.9 Hypothyroidism, unspecified; E78.5 Hyperlipidemia, unspecified; D63.1 Anemia in chronic kidney disease; Z79.82 Long term (current) use of aspirin; M54.2 Cervicalgia; R51.9 Headache, unspecified
CPT/HCPCS: 71045; 80048; 84484; 85025; 93005; 94640; 96374; 96376; 99285; A4216

== ENCOUNTER → 2023-11-03 | Outpatient (REF) | payer MEDICARE, MEDICAID, SELFPAY ==
[2023-11-03 09:38] LABS: Hematocrit 34.7 % (37-47); Hemoglobin 11.3 g/dL (12.0-15.0); Mean Corp Hgb Conc 32.6 g/dL (32-36); Mean Corpuscular Hgb 29.9 pg (27.0-32.0); Mean Corpuscular Volume 91.8 fL (81-99); Platelet Count 195 K/mm3 (150-450); RBC Distribution Width CV 14.7 % (11.6-14.6); Red Blood Count 3.78 M/mm3 (4.2-5.4); White Blood Count 7.2 K/mm3 (4.4-11.0)
[2023-11-03 10:02] LABS: Anion Gap 12 (5-15); BUN 74 mg/dL (7-18); BUN/Creat Ratio 15.4 RATIO (10-20); CRP 4.13 mg/L (0.0-3.0); Calcium,Total 8.8 mg/dL (8.5-10.1); Chloride 91 mmol/L (98-107); Creatinine, Serum 4.79 mg/dL (0.55-1.02); EST Glomerular Filtration Rate 10 mL/min (>60); Est Glom Filt Rate - Afr Amer 12 mL/min (>60); Glucose 340 mg/dL (74-106); Potassium 5.6 mmol/L (3.5-5.1); Sodium Level 128 mmol/L (136-145); Uric Acid 3.6 mg/dL (2.6-6.0)
== END ==
LOC: OLS.SW 05:00
PROVIDERS: PCP Internal Medicine; Visit Provider Internal Medicine
DX: D64.9 Anemia, unspecified (principal); E78.5 Hyperlipidemia, unspecified; N18.6 End stage renal disease
CPT/HCPCS: 80048; 84550; 85027; 86140

== ENCOUNTER → 2023-11-10 | Outpatient (REF) | payer MEDICARE, MEDICAID, SELFPAY ==
[2023-11-10 09:33] LABS: Hemoglobin 10.9 g/dL (12.0-15.0); Mean Corp Hgb Conc 32.1 g/dL (32-36); Mean Corpuscular Hgb 29.1 pg (27.0-32.0); Mean Corpuscular Volume 90.9 fL (81-99); Mean Platelet Vol. 10.6 fl (6.2-12.0); Platelet Count 195 K/mm3 (150-450); RBC Distribution Width CV 14.4 % (11.6-14.6); RBC Distribution Width SD 48.1 fl (35.1-43.9); Red Blood Count 3.74 M/mm3 (4.2-5.4); White Blood Count 6.6 K/mm3 (4.4-11.0)
[2023-11-10 09:47] LABS: Anion Gap 11 (5-15); BUN 98 mg/dL (7-18); BUN/Creat Ratio 20.5 RATIO (10-20); Calcium,Total 8.8 mg/dL (8.5-10.1); Chloride 95 mmol/L (98-107); Creatinine, Serum 4.78 mg/dL (0.55-1.02); EST Glomerular Filtration Rate 10 mL/min (>60); Est Glom Filt Rate - Afr Amer 12 mL/min (>60); Glucose 324 mg/dL (74-106); Potassium 5.5 mmol/L (3.5-5.1); Sodium Level 132 mmol/L (136-145)
== END ==
LOC: OLS.SW 05:00
PROVIDERS: PCP Internal Medicine; Visit Provider Internal Medicine
DX: E03.9 Hypothyroidism, unspecified (principal); E11.22 Type 2 diabetes mellitus with diabetic chronic kidney disease; N18.6 End stage renal disease; E46 Unspecified protein-calorie malnutrition; D63.1 Anemia in chronic kidney disease; J81.0 Acute pulmonary edema
CPT/HCPCS: 80048; 85027

== ENCOUNTER → 2023-11-17 | Outpatient (REF) | payer MEDICARE, SELFPAY ==
[2023-11-17 09:53] LABS: Hematocrit 32.2 % (37-47); Hemoglobin 10.6 g/dL (12.0-15.0); Mean Corp Hgb Conc 32.9 g/dL (32-36); Mean Corpuscular Hgb 29.6 pg (27.0-32.0); Mean Corpuscular Volume 89.9 fL (81-99); Mean Platelet Vol. 10.2 fl (6.2-12.0); Platelet Count 162 K/mm3 (150-450); RBC Distribution Width CV 13.9 % (11.6-14.6); RBC Distribution Width SD 45.6 fl (35.1-43.9); Red Blood Count 3.58 M/mm3 (4.2-5.4); White Blood Count 7.9 K/mm3 (4.4-11.0)
[2023-11-17 10:18] LABS: Anion Gap 9 (5-15); BUN 106 mg/dL (7-18); Calcium,Total 9.1 mg/dL (8.5-10.1); Chloride 93 mmol/L (98-107); Creatinine, Serum 4.81 mg/dL (0.55-1.02); EST Glomerular Filtration Rate 10 mL/min (>60); Est Glom Filt Rate - Afr Amer 12 mL/min (>60); Glucose 303 mg/dL (74-106); Potassium 5.9 mmol/L (3.5-5.1); Sodium Level 132 mmol/L (136-145)
== END ==
LOC: OLS.SW 05:00
PROVIDERS: PCP Internal Medicine; Visit Provider Internal Medicine
DX: E10.22 Type 1 diabetes mellitus with diabetic chronic kidney disease (principal); N18.6 End stage renal disease
CPT/HCPCS: 80048; 85027